=== PATIENT | female | born 1940 | race Caucasian/White ===

== ENCOUNTER 2017-10-20 23:07 | Inpatient (IN) | payer MEDICARE ==
[2017-10-20] MEDS ORDERED: NS 0.9% 1000 ML* 1,000 ML IV ONE (23:29)
[2017-10-20] MEDS ORDERED: Clotrimazole 1% CREAM* 30 GM TOPICAL ONE (23:32)
[2017-10-21 01:11] LABS: ABS Basophils 0 10^3/ul (0-0.2); ABS Eosinophils 0.2 10^3/ul (0-0.6); ABS Monocytes 0.8 10^3/ul (0-0.8); ABS Neutrophils 15.5 10^3/ul (1.5-7.7); ABS Nucleated RBC 0 10^3/ul; Eosinophil % 1.1 % (0-6); Hematocrit 43 % (35-47); Lymphocyte % 5.9 % (25-47); Mean Corpuscular HGB Conc 32 g/dl (31-36); Mean Corpuscular Hemoglobin 29 pg (27-31); Mean Corpuscular Volume 89 fL (80-97); Mean Platelet Volume 6.6 um3 (7.4-10.4); Nucleated Red Blood Cells % 0; Platelet Count 410 10^3/ul (150-450); Red Blood Count 4.88 10^6/ul (4.0-5.4); Red Cell Distribution Width 15 % (10.5-15); White Blood Count 17.6 10^3/ul (3.5-10.8)
[2017-10-21 01:19] LABS: INR 0.97 (0.77-1.02)
[2017-10-21 01:39] LABS: EGFR Non-African American 67.6 (>60)
[2017-10-21] MEDS ORDERED: Levofloxacin 750 MG IVPREMIX(* 750 MG/150 ML BAG IVPB ONE (01:47)
[2017-10-21] MEDS ORDERED: Insulin REGULAR(*) 1 UNITS UNIT IV PUSH ONE (01:53)
[2017-10-21 02:03] LABS: Urine Appearance Turbid; Urine Blood 3+ (Negative); Urine Color Amber; Urine Ketones Trace (Negative); Urine Protein 2+(100 mg/dL) (Negative); Urine Red Blood Cell 3+(>10/hpf) (Absent); Urine Specific Gravity 1.013 (1.010-1.030); Urine Urobilinogen Negative (Negative); Urine White Blood Cell 3+(>20/hpf) (Absent)
--- NOTE | 2017-10-21 02:17 | HP ---
H&P (Free Text) History and Physical: PCP: Alaina Suh NP Date/Time: 10/21/2017 0200 CC: family unable to care for HPI: Mrs Cho is a 76YO female very poor historian who was brought via EMS at the request of family reporting to the ED they were unable to care for her any more. Per ED staff, EMS reported that they found living conditions in Mrs Cho 's home to be deplorable. The recliner she was sitting in was soaked with urine and when they removed her from it, bugs scattered from underneath. The home was filthy and malodorous. Mrs Cho reports a fall ~5 days ago for which she was never evaluated. She denies F/C, sweats, chest pain, SOB, N/V/D, rash, pain, changes in bowel/bladder, or other issues. In the ED, she was found to have dried fecal caking in intertringinal areas and was subsequently bathed. PMedHx DM2 HTN HLD depression/anxiety Ambulatory Orders Atenolol 100 mg PO DAILY 12/24/12 Diltiazem CD CAP* [Cardizem CD CAP*] 180 mg PO DAILY 12/24/12 FLUoxetine CAP* [PROzac CAP*] 20 mg PO DAILY 12/24/12 Lisinopril & Hydrochlorothiazi [Lisinopril/Hydrochlorothi] 2 tab PO DAILY ALPRAZolam TAB* [Xanax TAB*] 0.25 mg PO BID PRN 01/24/13 Aspirin EC TAB* [Ecotrin EC Low Dose 81 MG*] 81 mg PO DAILY 01/24/13 Insulin Aspart [Novolog] 100 unit SC 01/24/13 Insulin REGULAR(*) unit SUBCUT AC 01/24/13 Losartan Potassium 100 mg PO DAILY 01/24/13 Simvastatin (NF) [Zocor (NF)] 40 mg PO DAILY 10/21/17 metFORMIN* [Glucophage 1000 MG TAB *] 1,000 mg PO BID 10/21/17 Allergies Penicillins Allergy (Verified 10/21/17 00:22) Anaphylatic Shock Sulfa (Sulfonamide Antibiotics) Allergy (Verified 10/21/17 00:22) Rash And Itching PSurgHx denies SocHx: denies HX tobacco, alcohol, & recreational drugs; lives alone; full code status FamHx: reviewed & non-contributory ROS: as above, otherwise reviewed and all were negative vitals: Vital Signs Temp 36.6 C 10/21/17 03:10 Pulse 89 10/21/17 03:10 Resp 16 10/21/17 03:10 BP 128/48 10/21/17 03:10 Pulse Ox 98 10/21/17 03:10 Intake & Output 10/20/17 10/20/17 10/21/17 11:59 23:59 11:59 Intake Total 110 Balance 110 Weight 90.718 kg 77.111 kg Intake: IVPB 110 Constitutional: NAD, normally developed, obese elderly white female HEENM: atraumatic; sclera/conjunctiva: anicteric/clear; hearing: clinically mildly decreased; oropharynx: clear, tacky Neck: soft tissue: no nuchal rigidity; thyroid: normal Pulmonary: clear to auscultation bilaterally, good aeration, no accessory muscle use CV: RR/RR, normal S1S2, no carotid bruit, no jugular venous distention, 2+ B DP/ PT, no edema Abdominal: soft, non-distended, non-tender, no rebound/guarding/rigidity, normoactive bowel sounds, no hepatosplenomegaly or masses, no costovertebral angle tenderness Musculoskeletal: general: grossly intact, non-tender Integumental: R dorso-lateral foot with ~8cm unstageable malodorous ulcer Psychiatric orientation: AA&O to PP, not time, questionably to situation affect: fatigued mood: cooperative eye contact: poor content: unreliable responses: mildly slowed insight: poor Testing: Lab Results 10/21/17 10/21/17 10/21/17 Range/Units 00:53 01:02 01:02 WBC 17.6 H (3.5-10.8) 10^3/ul RBC 4.88 (4.0-5.4) 10^6/ul Hgb 14.0 (12.0-16.0) g/dl Hct 43 (35-47) % MCV 89 (80-97) fL MCH 29 (27-31) pg MCHC 32 (31-36) g/dl RDW 15 (10.5-15) % Plt Count 410 (150-450) 10^3/ul MPV 6.6 L (7.4-10.4) um3 Neut % (Auto) 88.4 H (38-83) % Lymph % (Auto) 5.9 L (25-47) % [place] % (Auto) 4.4 (0-7) % Eos % (Auto) 1.1 (0-6) % Baso % (Auto) 0.2 (0-2) % Absolute Neuts (auto) 15.5 H (1.5-7.7) 10^3/ul Absolute Lymphs (auto) 1.0 (1.0-4.8) 10^3/ul Absolute Monos (auto) 0.8 (0-0.8) 10^3/ul Absolute Eos (auto) 0.2 (0-0.6) 10^3/ul Absolute Basos (auto) 0 (0-0.2) 10^3/ul Absolute Nucleated RBC 0 10^3/ul Nucleated RBC % 0 INR (Anticoag Therapy) 0.97 (0.77-1.02) APTT 24.7 L (26.0-36.3) seconds Sodium (139-145) mmol/L Potassium (3.5-5.0) mmol/L Chloride (101-111) mmol/L Carbon Dioxide (22-32) mmol/L Anion Gap (2-11) mmol/L BUN (6-24) mg/dL Creatinine (0.51-0.95) mg/dL Est GFR ( Amer) (>60) Est GFR (Non-Af Amer) (>60) BUN/Creatinine Ratio (8-20) Glucose (70-100) mg/dL POC Glucose (mg/dL) 255 H (70-100) mg/dL Lactic Acid (0.5-2.0) mmol/L Calcium (8.6-10.3) mg/dL Magnesium (1.9-2.7) mg/dL Total Bilirubin (0.2-1.0) mg/dL AST (13-39) U/L ALT (7-52) U/L Alkaline Phosphatase (34-104) U/L Total Creatine Kinase (10-223) U/L Troponin I (<0.04) ng/mL C-Reactive Protein (< 5.00) mg/L B-Natriuretic Peptide ( - 100) pg/mL Total Protein (6.4-8.9) g/dL Albumin (3.2-5.2) g/dL Globulin (2-4) g/dL Albumin/Globulin Ratio (1-3) Prealbumin (18-38) mg/dL Lipase (11.0-82.0) U/L TSH (0.34-5.60) mcIU/mL Urine Color Urine Appearance Urine pH (5-9) Ur Specific Norton (1.010-1.030) Urine Protein (Negative) Urine Ketones (Negative) Urine Blood (Negative) Urine Nitrate (Negative) Urine Bilirubin (Negative) Urine Urobilinogen (Negative) Ur Leukocyte Esterase (Negative) Urine WBC (Auto) (Absent) Urine RBC (Auto) (Absent) Urine Bacteria (Absent) Urine Glucose (Negative) 10/21/17 10/21/17 10/21/17 Range/Units 01:02 01:02 01:02 WBC (3.5-10.8) 10^3/ul RBC (4.0-5.4) 10^6/ul Hgb (12.0-16.0) g/dl Hct (35-47) % MCV (80-97) fL MCH (27-31) pg MCHC (31-36) g/dl RDW (10.5-15) % Plt Count (150-450) 10^3/ul MPV (7.4-10.4) um3 Neut % (Auto) (38-83) % Lymph % (Auto) (25-47) % [place] % (Auto) (0-7) % Eos % (Auto) (0-6) % Baso % (Auto) (0-2) % Absolute Neuts (auto) (1.5-7.7) 10^3/ul Absolute Lymphs (auto) (1.0-4.8) 10^3/ul Absolute Monos (auto) (0-0.8) 10^3/ul Absolute Eos (auto) (0-0.6) 10^3/ul Absolute Basos (auto) (0-0.2) 10^3/ul Absolute Nucleated RBC 10^3/ul Nucleated RBC % INR (Anticoag Therapy) (0.77-1.02) APTT (26.0-36.3) seconds Sodium 132 L (139-145) mmol/L Potassium 4.6 (3.5-5.0) mmol/L Chloride 97 L (101-111) mmol/L Carbon Dioxide 24 (22-32) mmol/L Anion Gap 11 (2-11) mmol/L BUN 35 H (6-24) mg/dL Creatinine 0.82 (0.51-0.95) mg/dL Est GFR ( Amer) 86.9 (>60) Est GFR (Non-Af Amer) 67.6 (>60) BUN/Creatinine Ratio 42.7 H (8-20) Glucose 275 H (70-100) mg/dL POC Glucose (mg/dL) (70-100) mg/dL Lactic Acid 2.0 (0.5-2.0) mmol/L Calcium 8.5 L (8.6-10.3) mg/dL Magnesium 1.9 (1.9-2.7) mg/dL Total Bilirubin 0.80 (0.2-1.0) mg/dL AST 23 (13-39) U/L ALT 28 (7-52) U/L Alkaline Phosphatase 50 (34-104) U/L Total Creatine Kinase 55 (10-223) U/L Troponin I 0.06 H* (<0.04) ng/mL C-Reactive Protein 193.00 H (< 5.00) mg/L B-Natriuretic Peptide 283 H ( - 100) pg/mL Total Protein 6.7 (6.4-8.9) g/dL Albumin 2.6 L (3.2-5.2) g/dL Globulin 4.1 H (2-4) g/dL Albumin/Globulin Ratio 0.6 L (1-3) Prealbumin 6 L (18-38) mg/dL Lipase 24 (11.0-82.0) U/L TSH 2.10 (0.34-5.60) mcIU/mL Urine Color Urine Appearance Urine pH (5-9) Ur Specific Norton (1.010-1.030) Urine Protein (Negative) Urine Ketones (Negative) Urine Blood (Negative) Urine Nitrate (Negative) Urine Bilirubin (Negative) Urine Urobilinogen (Negative) Ur Leukocyte Esterase (Negative) Urine WBC (Auto) (Absent) Urine RBC (Auto) (Absent) Urine Bacteria (Absent) Urine Glucose (Negative) 10/21/17 Range/Units 01:39 WBC (3.5-10.8) 10^3/ul RBC (4.0-5.4) 10^6/ul Hgb (12.0-16.0) g/dl Hct (35-47) % MCV (80-97) fL MCH (27-31) pg MCHC (31-36) g/dl RDW (10.5-15) % Plt Count (150-450) 10^3/ul MPV (7.4-10.4) um3 Neut % (Auto) (38-83) % Lymph % (Auto) (25-47) % [place] % (Auto) (0-7) % Eos % (Auto) (0-6) % Baso % (Auto) (0-2) % Absolute Neuts (auto) (1.5-7.7) 10^3/ul Absolute Lymphs (auto) (1.0-4.8) 10^3/ul Absolute Monos (auto) (0-0.8) 10^3/ul Absolute Eos (auto) (0-0.6) 10^3/ul Absolute Basos (auto) (0-0.2) 10^3/ul Absolute Nucleated RBC 10^3/ul Nucleated RBC % INR (Anticoag Therapy) (0.77-1.02) APTT (26.0-36.3) seconds Sodium (139-145) mmol/L Potassium (3.5-5.0) mmol/L Chloride (101-111) mmol/L Carbon Dioxide (22-32) mmol/L Anion Gap (2-11) mmol/L BUN (6-24) mg/dL Creatinine (0.51-0.95) mg/dL Est GFR ( Amer) (>60) Est GFR (Non-Af Amer) (>60) BUN/Creatinine Ratio (8-20) Glucose (70-100) mg/dL POC Glucose (mg/dL) (70-100) mg/dL Lactic Acid (0.5-2.0) mmol/L Calcium (8.6-10.3) mg/dL Magnesium (1.9-2.7) mg/dL Total Bilirubin (0.2-1.0) mg/dL AST (13-39) U/L ALT (7-52) U/L Alkaline Phosphatase (34-104) U/L Total Creatine Kinase (10-223) U/L Troponin I (<0.04) ng/mL C-Reactive Protein (< 5.00) mg/L B-Natriuretic Peptide ( - 100) pg/mL Total Protein (6.4-8.9) g/dL Albumin (3.2-5.2) g/dL Globulin (2-4) g/dL Albumin/Globulin Ratio (1-3) Prealbumin (18-38) mg/dL Lipase (11.0-82.0) U/L TSH (0.34-5.60) mcIU/mL Urine Color Kassie Urine Appearance Turbid Urine pH 5.0 (5-9) Ur Specific Norton 1.013 (1.010-1.030) Urine Protein 2+(100 mg/dl) A (Negative) Urine Ketones Trace A (Negative) Urine Blood 3+ A (Negative) Urine Nitrate Negative (Negative) Urine Bilirubin Negative (Negative) Urine Urobilinogen Negative (Negative) Ur Leukocyte Esterase 3+ A (Negative) Urine WBC (Auto) 3+(>20/hpf) A (Absent) Urine RBC (Auto) 3+(>10/hpf) A (Absent) Urine Bacteria Absent (Absent) Urine Glucose 3+(>=500 mg/dl) A (Negative) ECG, personally reviewed: NSR rate 77, T-wave inversions V3-6/I/II/AVF CXR, personally reviewed: bibasilar atelectasis vs infiltrate CT brain WO, personally reviewed: IMPRESSION: No intracranial mass or bleed. Impression: 76F found in unsafe living conditions with an abnormal ECG, elevated troponin, & findings concerning for bibasilar pneumonia DIAGNOSIS & PLAN Primary bibasilar pneumonia : IVFs : IV levofloxacin : blood & sputum CXs : supplemental oxygen : check S pneumo & Legionella urine antigens : supportive care 8cm unstageable R foot ulcer : wound consult severe protein-calorie malnutrition : nutrition consult Secondary DM2 : update A1c : ACHS glucometry : insulin carb ratio diet : basal/bolus/correctional insulin : hold metformin HTN : continue losartan, atenolol, & diltiazem : hold HCTZ & lisinopril HLD : continue simvastatin depression/anxiety : continue fluoxetine : hold alprazolam Admission Rational: inpatient for IVFs & IV ABX for bibasilar pneumonia complicated by abnormal ECG and elevated troponin DVTp: SCDs & heparin SQ Code Status: full HCP: daughter, Rosario Hermosillo
--- NOTE | 2017-10-21 02:19 | ED ---
Emelyn Riojas Jade, scribed for Leonard Martinez MD on 10/21/17 at 0037 . Complex/Multi-Sys Presentation - HPI Summary HPI Summary: Pt is a 76 y/o female BIBA c/o weakness. As per family, they brought her to the ED because they could no longer take care of her. Pt lives alone, and fell 10 days ago but refused to go to a hospital. She is afraid to let anybody help her stand up, and is not eating or drinking. Pt is usually bed-bound, and does not walk. She denies any N/V or pain. PMHx of Type 2 diabetes, CVA with left-sided weakness, and hyperlipidemia. - History Of Current Complaint Chief Complaint: EDGeneral Time Seen by Provider: 10/20/17 23:13 Hx Obtained From: Patient, Medical Records Onset/Duration: Gradual Onset Severity Currently: None Location: Negative Associated Signs And Symptoms: Positive: Weakness. Negative: Nausea, Vomiting - Allergies/Home Medications Allergies/Adverse Reactions: Allergies Allergy/AdvReac Type Severity Reaction Status Date / Time Penicillins Allergy Anaphylatic Verified 10/21/17 00:22 Shock Sulfa (Sulfonamide Allergy Rash And Verified 10/21/17 00:22 Antibiotics) Itching PMH/Surg Hx/FS Hx/Imm Hx Endocrine/Hematology History: Reports: Hx Diabetes - type 2 Denies: Hx Anemia Cardiovascular History: Reports: Hx Hypertension Denies: Hx Pacemaker/ICD GI History: Denies: Hx Jaundice Sensory History: Reports: Hx Cataracts - Had removed, Hx Contacts or Glasses - reading Denies: Hx Hearing Aid Opthamlomology History: Reports: Hx Cataracts - Had removed, Hx Contacts or Glasses - reading Neurological History: Denies: Hx Headaches Psychiatric History: Denies: Hx Panic Disorder - Surgical History Surgery Procedure, Year, and Place: BILAT CATARCTS - Immunization History Date of Tetanus Vaccine: unk Date of Influenza Vaccine: unk Infectious Disease History: Unable to Obtain/Confirm Infectious Disease History: Denies: Traveled Outside the [place] in Last 30 Days - Family History Known Family History: Positive: Other - Lung carcinoma - Social History Lives: Alone Alcohol Use: None Substance Use Type: Reports: None Smoking Status (MU): Former Smoker Review of Systems Positive: Other - Generalized weakness Negative: Vomiting, Nausea Negative: Myalgia All Other Systems Reviewed And Are Negative: Yes Physical Exam - Summary Physical Exam Summary: VITAL SIGNS: Reviewed. GENERAL: ~Patient is an unkempt female who is lying comfortable in the stretcher. Patient is not in any acute respiratory distress. Pt smells of urine. HEAD AND FACE: No signs of trauma. No ecchymosis, hematomas or skull depressions. No sinus tenderness. EYES: PERRLA, EOMI x 2, No injected conjunctiva, no nystagmus. EARS: Hearing grossly intact. Ear canals and tympanic membranes are within normal limits. MOUTH: Oropharynx within normal limits. NECK: Supple, trachea is midline, no adenopathy, no JVD, no carotid bruit, no c- spine tenderness, neck with full ROM. CHEST: Symmetric, no tenderness at palpation LUNGS: Clear to auscultation bilaterally. No wheezing or crackles. CVS: Regular rate and rhythm, S1 and S2 present, no murmurs or gallops appreciated. ABDOMEN: Soft, non-tender. No signs of distention. No rebound no guarding, and no masses palpated. Bowel sounds are normal. EXTREMITIES: FROM in all major joints, no cyanosis or clubbing. Mild swelling of right lower extremity. Stage 3 pressure ulcers over right lateral malleolus 3.5 cm in diameter. Bilateral LE weakness, L > R. NEURO: Alert and oriented x 3. No acute neurological deficits. Speech is normal and follows commands. SKIN: Dry and warm. Redness on skin folds over groin area and back, indicative of fungal infection. Triage Information Reviewed: Yes Vital Signs On Initial Exam: Initial Vitals Temp Pulse Resp BP Pulse Ox 97.8 F 88 18 142/102 97 10/20/17 23:32 10/20/17 23:32 10/20/17 23:32 10/20/17 23:32 10/20/17 23:32 Vital Signs Reviewed: Yes Diagnostics - Vital Signs Vital Signs Temp Pulse Resp BP Pulse Ox 10/20/17 23:32 97.8 F 88 18 142/102 97 - Laboratory Result Diagrams: 10/21/17 01:02 10/21/17 01:02 Lab Statement: Any lab studies that have been ordered have been reviewed, and results considered in the medical decision making process. - Radiology CXR Xray Interpretation: Positive (See Comments) - Right lower lobe infiltrate with small right pleural effusion. ED physician reviewed radiology report. Pending official report. Radiology Interpretation Completed By: Radiologist Ankle Right XR Xray Interpretation: Positive (See Comments) - Limited study. Ankle osteopenia/ arthritis, no fractures. ED physician reviewed radiology report. Pending official report. Radiology Interpretation Completed By: Radiologist - CT Brain CT CT Interpretation: No Acute Changes - No intracranial mass or bleed. Chronic appearing involutional changes of aging. ED physician reviewed this report. Official report pending. CT Interpretation Completed By: Radiologist - EKG 01:32 Cardiac Rate: NL - 77 bpm EKG Rhythm: Sinus Rhythm EKG Interpretation: T-wave inversion in anterolateral and high lateral leads Complex Multi-Symp Course/Dx Course Of Treatment: Pt is a 76 y/o female BIBA c/o weakness. She denies any N/ V or pain. Her family brought her in because they could no longer take care of her. Pt lives alone, and fell 10 days ago but refused to go to a hospital. She is afraid to let anybody help her stand up, and is not eating or drinking. Pt is usually bed-bound, and does not walk. PMHx of Type 2 diabetes, CVA with left- sided weakness, and hyperlipidemia. A CXR reveals right lower lobe infiltrate with small right pleural effusion. A head CT reveals no intracranial mass or bleed, and chronic appearing involutional changes of aging. A right ankle XR reveals a limited study, ankle osteopenia/arthritis, and no fractures. An EKG reveals normal rate at 77 bpm, sinus rhythm, and T-wave inversion in anterolateral and high lateral leads. In the ED course, pt was given Clotrimazole, insulin, Levaquin, and fluids. Patient will be admitted to Dr. Zavaleta with final Dx of PNA, UTI, and pressure ulcers. Pt is agreeable with this plan. Allergies noted. - Diagnoses Provider Diagnoses: PNA (pneumonia), UTI (urinary tract infection), Pressure ulcer - Physician Notifications Discussed Care Of Patient With: Stanley Zavaleta - Discussed case to be admitted Time Discussed With Above Provider: 01:56 Instructed by Provider To: Other - Accepts patient for admission Discharge - Sign-Out/Discharge Documenting (check all that apply): Discharge/Admit/Transfer - admit - Discharge Plan Condition: Stable Disposition: ADMITTED TO [facility] Referrals: Beronica Suh, KEYING MACHINE OPERATOR [Primary Care Provider] - The documentation as recorded by the Emelyn colon Jade accurately reflects the service I personally performed and the decisions made by me, Leonard Martinez MD.
[2017-10-21] MEDS ORDERED: Albuterol 2.5 MG/3 ML NEB.SOL* (0.083%) INH PRN (02:24)
[2017-10-21] MEDS ORDERED: Acetaminophen TAB* 325 MG PO PRN (02:24)
[2017-10-21] MEDS ORDERED: Melatonin 3 MG TAB PO PRN (02:26)
[2017-10-21] MEDS ORDERED: Ondansetron ODT TAB* 4 MG PO PRN (02:27)
[2017-10-21] MEDS: NS 0.9% 1000 ML* 1,000 ML IV SCH ×3 (04:13→21:49)
[2017-10-21] MEDS: Omeprazole CAP* 20 MG PO SCH (05:43)
[2017-10-21 05:52] LABS: ABS Basophils 0 10^3/ul (0-0.2); ABS Eosinophils 0.1 10^3/ul (0-0.6); ABS Lymphocytes 0.9 10^3/ul (1.0-4.8); ABS Monocytes 0.8 10^3/ul (0-0.8); ABS Neutrophils 17.4 10^3/ul (1.5-7.7); ABS Nucleated RBC 0 10^3/ul; Eosinophil % 0.4 % (0-6); Hematocrit 41 % (35-47); Hemoglobin 13.2 g/dl (12.0-16.0); Lymphocyte % 4.5 % (25-47); Mean Corpuscular HGB Conc 32 g/dl (31-36); Mean Corpuscular Hemoglobin 28 pg (27-31); Mean Corpuscular Volume 88 fL (80-97); Mean Platelet Volume 6.5 um3 (7.4-10.4); Nucleated Red Blood Cells % 0; Platelet Count 343 10^3/ul (150-450); Red Blood Count 4.68 10^6/ul (4.0-5.4); Red Cell Distribution Width 15 % (10.5-15); White Blood Count 19.1 10^3/ul (3.5-10.8)
[2017-10-21 06:11] LABS: EGFR Non-African American 93.3 (>60)
--- NOTE | 2017-10-21 08:42 | RAD ---
INDICATION: Weakness COMPARISON: Chest x-ray dated December 24, 2012 TECHNIQUE: Single AP portable view of the chest was obtained. FINDINGS: Image quality is compromised due to the relative inferiority of a portable chest x-ray. The heart and mediastinum exhibit normal size and contour. There is stable mild calcification overlying the arch of the aorta. There is linear density at the left lung base partially obscuring the left hemidiaphragm that was not seen on the previous chest x-ray. More superiorly the lungs are adequately aerated. Degenerative changes of the bilateral shoulders include joint space narrowing and sclerotic change of the articulating services. IMPRESSION: Possible atelectasis or other consolidation of the left lung base not seen on the previous chest x-ray.
--- NOTE | 2017-10-21 08:46 | RAD ---
INDICATION: Soft tissue ulceration overlying the lateral malleolus COMPARISON: None. TECHNIQUE: 2 views of the right ankle were obtained. FINDINGS: Degenerative changes of the right ankle include joint space narrowing and mild sclerotic change of the articulating services. There is a mild degree of marginal osteophyte formation. There is no definite cortical destruction characteristic of osteomyelitis. There is a mild degree of soft tissue swelling overlying the fibular malleolus.. IMPRESSION: DEGENERATIVE CHANGES DESCRIBED ABOVE WITHOUT DEFINITE RADIOGRAPHIC SIGNS OF OSTEOMYELITIS. If the patient's symptoms persist, follow-up imaging is recommended.
--- NOTE | 2017-10-21 08:49 | RAD ---
INDICATION: Weakness and "sores all over body" COMPARISON: CT of the brain December 24, 2012 TECHNIQUE: Contiguous axial sections of the brain were obtained from the skull base to the vertex without contrast. FINDINGS: The ventricles, cisterns and sulci exhibit involutional changes similar in appearance to the previous CT of the brain. There is mild to moderate periventricular and subcortical white matter hypoattenuation characteristic of chronic microvascular disease and slightly progressed when compared to the previous CT of the brain. Otherwise the mercado-white matter differentiation is adequately maintained and there is no sulcal effacement. No significant focal abnormality or mass effect is present. There is no evidence for intracranial hemorrhage. No significant focal osseous abnormality is present. The visualized portion of the paranasal sinuses appear clear. The mastoid air cells are well aerated bilaterally. IMPRESSION: Chronic findings as described above, slightly progressed when compared to the December 24, 2012 CT of the brain without acute intracranial abnormalities.
[2017-10-21] MEDS ORDERED: Diltiazem CD CAP* 180 MG PO SCH (09:00)
[2017-10-21] MEDS ORDERED: Atenolol TAB* 50 MG PO SCH ×2 (09:00→13:19)
[2017-10-21] MEDS ORDERED: Losartan TAB* 25 MG PO SCH (09:00)
[2017-10-21] MEDS: Atorvastatin* 20 MG TAB PO SCH (09:24)
[2017-10-21] MEDS: FLUoxetine CAP* 20 MG PO SCH (09:24)
[2017-10-21] MEDS: Docusate CAP* 100 MG PO SCH ×2 (09:24→20:43)
[2017-10-21] MEDS: Insulin LISPRO* 1 UNITS UNIT SUBCUT SCH ×7 (09:24→20:44)
[2017-10-21] MEDS: Aspirin EC TAB* 81 MG TAB.EC PO SCH (09:24)
[2017-10-21] MEDS ORDERED: NS 0.9% 500 ML* 500 ML IV ONE (12:58)
[2017-10-21] MEDS ORDERED: Azithromycin IV(*) 500 MG in D5W 250 ML BAG* 250 ML IVPB SCH (13:30)
[2017-10-21] MEDS: Cefepime 1 GM in Dextrose(*) 1 GM/50 ML BAG IV SCH (14:37)
[2017-10-21] MEDS: Azithromycin IV(*) 500 MG in NS 0.9% 250 ML* 250 ML IVPB SCH (15:25)
[2017-10-21] MEDS ORDERED: NS 0.9% 1000 ML* 1,000 ML IV ONE ×2 (15:38→19:35)
--- NOTE | 2017-10-21 17:41 | PN ---
Subjective Date of Service: 10/21/17 Interval History: c/o of feeling tired. denies chest pain or shortness of breath. denies abd pain n/v/d. Family History: Unchanged from Admission Social History: Unchanged from Admission Past Medical History: Unchanged from Admission Objective Active Medications: Acetaminophen (Tylenol Tab*) 650 mg PO Q6H PRN PRN Reason: FEVER/PAIN Albuterol (Ventolin 2.5 Mg/3 Ml Neb.Mary*) 2.5 mg INH Q2H PRN PRN Reason: SOB/WHEEZING Aspirin (Aspirin Ec Tab*) [address] [facility] Last Admin: 10/21/17 09:24 Dose: 81 mg Atenolol (Tenormin Tab*) [address] [facility] Atorvastatin Calcium (Lipitor*) [address] [facility] Last Admin: 10/21/17 09:24 Dose: 20 mg Docusate Sodium (Colace Cap*) [address] [facility] Last Admin: 10/21/17 09:24 Dose: 100 mg Fluoxetine HCl (Prozac Cap*) [address] [facility] Last Admin: 10/21/17 09:24 Dose: 20 mg Heparin Sodium (Porcine) (Heparin Vial(*)) 5,[address] [facility] Sodium Chloride (Ns 0.9% 1000 Ml*) 1,000 mls @ 100 mls/hr IV PER RATE [facility] Last Admin: 10/21/17 04:13 Dose: 100 mls/hr Cefepime HCl (Maxipime 1 Gm In Dextrose Duplex (*)) 1 gm in 50 mls @ 100 mls/ hr IV Q12H [facility] Last Admin: 10/21/17 14:37 Dose: 100 mls/hr Azithromycin 500 mg/ Sodium (Chloride) 250 mls @ 250 mls/hr IVPB Q24H [facility] Last Admin: 10/21/17 15:25 Dose: 250 mls/hr Insulin Glargine (Lantus(*)) 22 units 0.24 units/kg (22 units) SUBCUT 2100 [facility] Stop: 10/22/17 20:00 Insulin Human Lispro (Humalog*) 0 units SUBCUT AC [facility] PRN Reason: Protocol Last Admin: 10/21/17 13:26 Dose: Not Given Insulin Human Lispro (Humalog*) [address] [facility] PRN Reason: Protocol Last Admin: 10/21/17 13:34 Dose: 15 units Melatonin (Melatonin) 3 mg PO BEDTIME PRN; Protocol PRN Reason: Sleep Omeprazole (Prilosec Cap*) 20 mg PO DAILY@0600 [facility] Last Admin: 10/21/17 05:43 Dose: 20 mg Ondansetron HCl (Zofran Odt Tab*) 4 mg PO Q6H PRN PRN Reason: n/v Vital Signs - 8 hr 10/21/17 10/21/17 10/21/17 11:54 15:08 15:49 Temperature 97.1 F 97.4 F Pulse Rate 56 53 Respiratory 18 20 Rate Blood Pressure 82/36 79/31 73/30 (mmHg) O2 Sat by Pulse 100 96 Oximetry 10/21/17 17:30 Temperature Pulse Rate Respiratory Rate Blood Pressure 76/30 (mmHg) O2 Sat by Pulse Oximetry Oxygen Devices in Use Now: None Appearance: appears, weak and tired, no acute distress, pale Eyes: No Scleral Icterus Ears/Nose/Mouth/Throat: Clear Oropharnyx, Mucous Membranes Moist Neck: NL Appearance and Movements; NL JVP, Trachea Midline Respiratory: Symmetrical Chest Expansion and Respiratory Effort, Clear to Auscultation Cardiovascular: NL Sounds; No Murmurs; No JVD, No Edema Abdominal: NL Sounds; No Tenderness; No Distention Skin: - - large tunneling coccyx ulcer, left hip with medium scabbed area, right lateral foot with large open wound, right 5 th toe with redness and abrasion. right heal with redness and wound. multiple abrasion and sores noted to entire body Neurological: Alert and Oriented x 3 Nutrition: Taking PO's Result Diagrams: 10/22/17 06:24 10/22/17 06:24 Microbiology and Other Data: Microbiology 10/21/17 14:30 Skin and Soft Tissue MRSA/MSSA (PCR - Final Ankle Right Mrsa Negative S.aureus Positive Gram Stain - Final 10/21/17 14:30 Skin and Soft Tissue MRSA/MSSA (PCR - Final Buttock Mrsa Negative S.aureus Negative Gram Stain - Final Assess/Plan/Problems-Billing Assessment: Ms. Cho is a 76 y.o female with a past medical hx significant for HTN, - Patient Problems (1) Pneumonia Current Visit: Yes Status: Acute Code(s): J18.9 - PNEUMONIA, UNSPECIFIED ORGANISM SNOMED Code(s): 696878976 Comment: Will Change antibiotics to azithromycin and cefepime - afebrile (2) Pressure ulcer Current Visit: Yes Status: Acute Code(s): L89.90 - PRESSURE ULCER OF UNSPECIFIED SITE, UNSPECIFIED STAGE SNOMED Code(s): 329289308 Comment: consulted surgery coccyx ulcer - normal saline wet to dry dressing dressing to right ankle air mattress to bed reposition Q2 hours right ankle ulcer positive for MSSA- will continue cefepime (3) Malnutrition Current Visit: Yes Status: Acute Code(s): E46 - UNSPECIFIED PROTEIN-CALORIE MALNUTRITION SNOMED Code(s): 21003199 Comment: - poor po intake for 10 days prior to arrival to the hospital - multiple open wounds noted to body, edema to lower legs - albumin low 2.6 - prealbumin 6 (4) Hypotension Current Visit: Yes Status: Acute Comment: suspect this is related to her medications- given IV fluids bolus x2 -stopped losartan and cardizem - after medications clarified - repeat lactic acid elevated - patient given IV normal saline bolus (5) Diabetes mellitus type 2 Current Visit: No Status: Active Priority: Low Code(s): E11.9 - TYPE 2 DIABETES MELLITUS WITHOUT COMPLICATIONS SNOMED Code(s): 95928434 Comment: finger sticks AC and HS with SS lispro coverage continue Lantus (6) Essential hypertension Current Visit: No Status: Active Priority: Low Code(s): I10 - ESSENTIAL ( PRIMARY) HYPERTENSION SNOMED Code(s): 10558593 Comment: medications clarified - take atenolol and lisinopril/ HCTZ at home - d/c'd lorsartan and cardizem- patient was hypotensive throughtout the day after AM medicaitons (7) Hypercholesterolemia Current Visit: No Status: Active Priority: Low Code(s): E78.0 - PURE HYPERCHOLESTEROLEMIA * DO NOT USE * SNOMED Code(s): 27818327 Comment: continue lipitor (8) DVT prophylaxis Current Visit: Yes Status: Acute Code(s): MYN0126 - SNOMED Code(s): 414109521 Comment: heparin subQ (9) Full code status Current Visit: Yes Status: Acute Code(s): Z78.9 - OTHER SPECIFIED HEALTH STATUS SNOMED Code(s): 055158963 Status and Disposition: inpatient
[2017-10-21] MEDS ORDERED: Insulin GLARGINE(*) 1 UNITS UNIT SUBCUT SCH (21:00)
[2017-10-22] MEDS: Cefepime 1 GM in Dextrose(*) 1 GM/50 ML BAG IV SCH ×2 (01:21→15:02)
[2017-10-22] MEDS ORDERED: Levofloxacin 750 MG IVPREMIX(* 750 MG/150 ML BAG IVPB SCH (02:00)
[2017-10-22] MEDS: Heparin VIAL(*) 5000 UNITS/ML VIAL (FIVE THOUSAND) SUBCUT SCH ×3 (05:35→21:33)
[2017-10-22] MEDS: Omeprazole CAP* 20 MG PO SCH (05:35)
[2017-10-22 06:50] LABS: ABS Basophils 0 10^3/ul (0-0.2); ABS Eosinophils 0.2 10^3/ul (0-0.6); ABS Lymphocytes 1.2 10^3/ul (1.0-4.8); ABS Monocytes 0.7 10^3/ul (0-0.8); ABS Neutrophils 15.7 10^3/ul (1.5-7.7); ABS Nucleated RBC 0 10^3/ul; Eosinophil % 1.2 % (0-6); Hematocrit 34 % (35-47); Hemoglobin 11.6 g/dl (12.0-16.0); Lymphocyte % 6.8 % (25-47); Mean Corpuscular HGB Conc 34 g/dl (31-36); Mean Corpuscular Hemoglobin 30 pg (27-31); Mean Corpuscular Volume 88 fL (80-97); Mean Platelet Volume 6.5 um3 (7.4-10.4); Nucleated Red Blood Cells % 0; Platelet Count 348 10^3/ul (150-450); Red Blood Count 3.87 10^6/ul (4.0-5.4); Red Cell Distribution Width 15 % (10.5-15); White Blood Count 17.9 10^3/ul (3.5-10.8)
[2017-10-22 07:04] LABS: EGFR Non-African American 48.2 (>60)
[2017-10-22] MEDS: Docusate CAP* 100 MG PO SCH ×2 (08:32→21:33)
[2017-10-22] MEDS: Insulin LISPRO* 1 UNITS UNIT SUBCUT SCH ×4 (08:32→21:34)
[2017-10-22] MEDS: Aspirin EC TAB* 81 MG TAB.EC PO SCH (08:32)
[2017-10-22] MEDS: Atorvastatin* 20 MG TAB PO SCH (08:32)
[2017-10-22] MEDS: FLUoxetine CAP* 20 MG PO SCH (08:32)
[2017-10-22] MEDS: Atenolol TAB* 50 MG PO SCH (08:33)
[2017-10-22] MEDS ORDERED: Thiamine IV 100 MG, Folic Acid IV* 1 MG, Multiple Vitamin IV ADULT* 10 ML in NS 0.9% 10... IV ONE (10:46)
[2017-10-22] MEDS ORDERED: Insulin GLARGINE(*) 1 UNITS UNIT SUBCUT SCH (10:49)
[2017-10-22] MEDS ORDERED: Magnesium Sulfate 2 GM IV* 2 GM/50 ML BAG IVPB ONE (11:21)
[2017-10-22] MEDS: Nystatin TOP POWDER* 15 GM BTL TOPICAL SCH ×2 (11:24→21:00)
[2017-10-22] MEDS: Collagenase 250 MG/GM OINT* 30 GM TOPICAL SCH (11:24)
--- NOTE | 2017-10-22 11:26 | PN ---
Subjective Date of Service: 10/22/17 Interval History: examined at the bedside, continues to bradycardic on the monitor, asymptomatic at this time, c/o feeling "HOT", reports that she thought that her wounds were healing. confused to month and year. Denies chest pain or shortness of breath. denies abd pain , n/v/d, denies pain to coccyx. Family History: Unchanged from Admission Social History: Unchanged from Admission Past Medical History: Unchanged from Admission Objective Active Medications: Acetaminophen (Tylenol Tab*) 650 mg PO Q6H PRN PRN Reason: FEVER/PAIN Last Admin: 10/22/17 05:35 Dose: 650 mg Albuterol (Ventolin 2.5 Mg/3 Ml Neb.Mary*) 2.5 mg INH Q2H PRN PRN Reason: SOB/WHEEZING Aspirin (Aspirin Ec Tab*) 81 mg PO DAILY [facility] Last Admin: 10/22/17 08:32 Dose: 81 mg Atenolol (Tenormin Tab*) 50 mg PO DAILY [facility] Last Admin: 10/22/17 08:33 Dose: Not Given Atorvastatin Calcium (Lipitor*) 20 mg PO DAILY [facility] Last Admin: 10/22/17 08:32 Dose: 20 mg Collagenase (Santyl 250 Mg/Gm Oint*) 1 applic TOPICAL DAILY [facility] Docusate Sodium (Colace Cap*) 100 mg PO BID [facility] Last Admin: 10/22/17 08:32 Dose: 100 mg Fluoxetine HCl (Prozac Cap*) 20 mg PO DAILY [facility] Last Admin: 10/22/17 08:32 Dose: 20 mg Heparin Sodium (Porcine) (Heparin Vial(*)) 5,000 units SUBCUT Q8HR [facility] Last Admin: 10/22/17 05:35 Dose: 5,000 units Cefepime HCl (Maxipime 1 Gm In Dextrose Duplex (*)) 1 gm in 50 mls @ 100 mls/ hr IV Q12H [facility] Last Admin: 10/22/17 01:21 Dose: 100 mls/hr Azithromycin 500 mg/ Sodium (Chloride) 250 mls @ 250 mls/hr IVPB Q24H [facility] Last Admin: 10/21/17 15:25 Dose: 250 mls/hr Thiamine HCl 100 mg/ Folic Acid 1 mg/ Multivitamins 10 ml / Sodium Chloride 1, 011.2 mls @ 100 mls/hr IV ONCE ONE Stop: 10/22/17 20:52 Magnesium Sulfate (Magnesium Sulfate 2 Gm Iv*) 2 gm in 50 mls @ 50 mls/hr IVPB ONCE ONE Stop: 10/22/17 12:20 Insulin Glargine (Lantus(*)) 30 units SUBCUT 2100 [facility] Stop: 10/22/17 20:00 Insulin Human Lispro (Humalog*) 0 units SUBCUT ACHS [facility] PRN Reason: Protocol Last Admin: 10/22/17 08:32 Dose: 6 units Magnesium Oxide (Magox 400 Tab*) 400 mg PO DAILY [facility] Melatonin (Melatonin) 3 mg PO BEDTIME PRN; Protocol PRN Reason: Sleep Nystatin (Nystatin Top Powder*) 1 applic TOPICAL BID [facility] Omeprazole (Prilosec Cap*) 20 mg PO DAILY@0600 [facility] Last Admin: 10/22/17 05:35 Dose: 20 mg Ondansetron HCl (Zofran Odt Tab*) 4 mg PO Q6H PRN PRN Reason: n/v Vital Signs - 8 hr 10/22/17 10/22/17 10/22/17 06:11 07:37 08:00 Temperature 97.5 F Pulse Rate 54 Respiratory 16 18 Rate Blood Pressure 103/40 (mmHg) O2 Sat by Pulse 95 96 Oximetry Oxygen Devices in Use Now: None Appearance: appears confortable resting in bed, no acute distress. Eyes: No Scleral Icterus Ears/Nose/Mouth/Throat: Clear Oropharnyx, Mucous Membranes Moist Neck: NL Appearance and Movements; NL JVP, Trachea Midline Respiratory: Symmetrical Chest Expansion and Respiratory Effort, Clear to Auscultation, - - diminished at the bases bilat, no respirtory distress Cardiovascular: NL Sounds; No Murmurs; No JVD, - - bilat lower ext edema Abdominal: NL Sounds; No Tenderness; No Distention Extremities: No Clubbing, Cyanosis, - - bilat lower ext edema Skin: - - left hip with moderate size open area, scabbed no drainage, right lateral ankle with moderate sized open wound, with muscle tissue exposed, small amt drainage, right 5th toe the redness and abrasion. coccyx with large tunneling open area, with necrotic tissue noted, right forehead with moderate sized redened area, swelling , warm to touch , small abrasion. see images for further details of the wounds located in the "additional lab and data" section Neurological: - - oriented to place and person , confused to time Nutrition: Taking PO's Result Diagrams: 10/23/17 05:55 10/23/17 05:55 Additional Lab and Data: Left hip wound right heel coccyx right ankle right 5th toe Microbiology and Other Data: Microbiology 10/21/17 14:30 Skin and Soft Tissue MRSA/MSSA (PCR - Final Ankle Right Mrsa Negative S.aureus Positive Gram Stain - Final 10/21/17 14:30 Skin and Soft Tissue MRSA/MSSA (PCR - Final Buttock Mrsa Negative S.aureus Negative Gram Stain - Final Assess/Plan/Problems-Billing Assessment: Ms. Cho is a 76 y.o female with a past medical hx significant for HTN, DM, HLD and depression. Who presented to the ER for weakness, open wounds. Patient was found to have pneumonia. - Patient Problems (1) Pneumonia Current Visit: Yes Status: Acute Code(s): J18.9 - PNEUMONIA, UNSPECIFIED ORGANISM SNOMED Code(s): 348959337 Comment: Will continue antibiotics to azithromycin and cefepime- for pneumonia - urine culture negative for legionella and s.pneumo - remains afebrile (2) Pressure ulcer Current Visit: Yes Status: Acute Code(s): L89.90 - PRESSURE ULCER OF UNSPECIFIED SITE, UNSPECIFIED STAGE SNOMED Code(s): 902677224 Comment: surgery recommendation appreciated coccyx, right ankle, right toe, left hip ulcer- dressings per surgery air mattress to bed- will order speciality bed reposition Q2 hours right ankle ulcer positive for MSSA- will continue cefepime (3) Malnutrition Current Visit: Yes Status: Acute Code(s): E46 - UNSPECIFIED PROTEIN-CALORIE MALNUTRITION SNOMED Code(s): 11147962 Comment: - poor po intake for 10 days prior to arrival to the hospital - multiple open wounds noted to body, edema to lower legs - albumin low 2.6 - prealbumin 6 - will give banana bag daily- nutrition consulted (4) Hypotension Current Visit: Yes Status: Acute Comment: -suspect this is related to her medications- improved but remains soft 103 systolic - atenolol dose change to 50 mg and hold for SBP less than 100 and hr less than 60 -stopped losartan and cardizem - after medications clarified - repeat lactic acid- WNL (5) Diabetes mellitus type 2 Current Visit: No Status: Active Priority: Low Code(s): E11.9 - TYPE 2 DIABETES MELLITUS WITHOUT COMPLICATIONS SNOMED Code(s): 55569473 Comment: finger sticks AC and HS with SS lispro coverage - changed SS scale to BMI greater that 30 - increased Lantus to 30 units Q pm (6) Essential hypertension Current Visit: No Status: Active Priority: Low Code(s): I10 - ESSENTIAL ( PRIMARY) HYPERTENSION SNOMED Code(s): 51138462 Comment: medications clarified - take atenolol and lisinopril/ HCTZ at home - d/c'd lorsartan and cardizem- patient was hypotensive throughtout the day after AM medicaitons - decreased the dose of atenolol to 50 mg with holding for SBP < 100 and HR < 60 (7) Hypercholesterolemia Current Visit: No Status: Active Priority: Low Code(s): E78.0 - PURE HYPERCHOLESTEROLEMIA * DO NOT USE * SNOMED Code(s): 34709088 Comment: continue lipitor (8) Elevated serum creatinine Current Visit: Yes Status: Acute Code(s): R79.89 - OTHER SPECIFIED ABNORMAL FINDINGS OF BLOOD CHEMISTRY SNOMED Code(s): 001943558 Comment: - suspect this is related to hypoperfusion she experienced yesterday - will avoid nephotoxic agents - will repeat BMP in the AM (9) Hypomagnesemia Current Visit: Yes Status: Acute Code(s): E83.42 - HYPOMAGNESEMIA SNOMED Code(s): 055303699 Comment: magnesium 1.5 today - will give magnesium 2 gram and magnesium oxide 400mg po - repeat magnesium level tomorrow (10) Edema Current Visit: Yes Status: Acute Code(s): R60.9 - EDEMA, UNSPECIFIED SNOMED Code(s): 065378556 Comment: -suspect this is related to fluid volume that patient recieved yesterday for management of hypotension - also suspect that this could be related to malnutrition, as the patient had a low albumin level (11) Bradycardia Current Visit: Yes Status: Acute Code(s): R00.1 - BRADYCARDIA, UNSPECIFIED SNOMED Code(s): 30174100 Comment: - suspect this could be related to malnutrition - could also be residual effect of medication that were given yesterday - will decrease dose of atenolol to 50 mg and continue holding for SBP <100 or HR <60 - will get echocardigram (12) Hypokalemia Current Visit: Yes Status: Acute Code(s): E87.6 - HYPOKALEMIA SNOMED Code( s): 58386953 Comment: Will give potassium 60meq PO today (13) DVT prophylaxis Current Visit: Yes Status: Acute Code(s): WTU6580 - SNOMED Code(s): 987389359 Comment: heparin subQ (14) Full code status Current Visit: Yes Status: Acute Code(s): Z78.9 - OTHER SPECIFIED HEALTH STATUS SNOMED Code(s): 927350455 Status and Disposition: inpatient - will need rehab placement
[2017-10-22] MEDS: Magnesium Oxide TAB* 400 MG PO SCH (13:32)
--- NOTE | 2017-10-22 13:49 | CONS ---
CC: Beronica Suh NP; [facility]; [facility] * SURGICAL CONSULTATION REPORT: DATE OF CONSULT: 10/22/17 HISTORY OF PRESENT ILLNESS: I was contacted by the hospitalist service yesterday to evaluate Mrs. Cho, a 76-year-old female who presented to emergency room by EMS for worsening wounds that the patient's family were unable to care of. The story seems to start around 10 days ago when the patient was found down with her leg under a dresser. She was noted to have a right foot ulcer and a sacral ulcer after being down for approximately 8 hours. She was placed back into her chair where her family had difficulty to taking care of her. She does live alone. She is nonambulatory and cannot recall when she started being nonambulatory. She is incontinent and does not recorded when that started either. She remains in a undergarment and this apparently was changed by her family and according to the patient, they had given her her medications as well. It is unclear if she ate much during this time. It was felt that the patient's wounds were showing some improvement only to worsen and that has caused family to contact EMS. In the emergency room, the patient was noted to have likely bibasilar pneumonia as well as poorly-controlled diabetes along with the wounds and was admitted to the hospitalist service and started on cefepime. Cultures were taken from both buttock and the ankle and the blood and the urine. Blood cultures were negative over the course of the day. Urine culture is pending with some positive findings that are pending. Buttock wound culture still pending, currently negative for Staph aureus but the ankle showed Staph aureus positive but nonMRSA. The patient is a poor historian and most of this is gleaned from the record. Family is not present at this time. PAST MEDICAL HISTORY: Diabetes, hypertension, hypercholesterolemia. MEDICATIONS: List was reviewed. ALLERGIES: List was reviewed. PHYSICAL EXAM: The patient has been afebrile since arrival. Heart rate has been normal. Blood pressure was low at times yesterday. She did receive fair amount of fluid and is likely is positive over the course of 24 hours. She is awake, answers questions appropriately. She is oriented to person and place but not date. Examination of her head reveals trauma to the right forehead with some erythema, mild bogginess at the site. Tender only on deep pressure. No fluid is expressed. Extremities: Reveal lateral aspect of the right forefoot with a 5 x 4 x 0.1 cm wound with loosely adhered skin and subcutaneous tissue which was bluntly debrided off exposing underlying muscle. This does not tunnel. It is soupy and foul smelling but without any significant erythema around the periwound skin. The patient had significant lymphedema that is 2+ pitting throughout the extremity and foot. The patient also has an unstageable heel ulcer with the bruising but the skin is intact. Both these wounds were tender to touch. Sacral area reveal a 3 x 2 x 2 cm deep wound with skin drainage and necrotic debris, grade 4 sacral decubitus ulcer. The patient has an unstageable left ischial ulcer as well that is approximately 3 cm x 2 cm. She has other small hyperemic skin areas consistent with malnutrition but without clear open wounds. Edema throughout almost to the point of anasarca. DIAGNOSTIC STUDIES/LAB DATA: Labs reviewed showed elevated white blood cell count of 17 and remains elevated with an elevated CRP of . The patient's albumin is 2.6 with a prealbumin of 6. INR is normal. Blood glucose has been elevated and she is on insulin at this point with Lantus. Imaging includes an ankle x-ray, which the report is reviewed and not quite revealing. Chest x-ray report reviewed, which shows atelectasis. IMPRESSION: A 76-year-old female appears stated age, who is nonambulatory, poorly cared for, who has chronic wounds that are stable and surrounding picture of poorly controlled diabetes and malnutrition. PLAN: Plan is for 1. Topical wound care. 2. Nutrition. 3. Blood glucose control. RECOMMENDATIONS: Recommendation is for Santyl dressing daily for main wounds. We will follow daily in the short period for now until I feel more comfortable spreading out the visits, so I will see her tomorrow. She may require excisional debridement either at the bedside or in the operative room. She is currently on cefepime and that is reasonable. We will follow up the cultures. Recommendation is for nystatin cream to interstices of the pelvic and perineum area where she has a significant rash. I recommend an automatic turning bed for improvement and prevention with additional wounds. I recommend iron studies and vitamins. This was discussed with the hospitalist service and we will continue to follow. TIME SPENT: Overall 40 minutes was spent discussing the case with the patient and other services. [id number]/CPS #: [id number] ARMANDO
--- NOTE | 2017-10-22 14:32 | ECHO ---
Patient: CAROLYN ZAMBRANO [facility] Rec#: [id number] : 1940 Date: 10/22/2017 Age: 76y Height: 154.94 cm / 61.0 in Weight: 81.65 kg / 180.0 lbs Sex: F BSA: 1.81 Room#: 404 Admit Date#: 10/21/2017 Type: Inpatient Referring: Fidelia Israel Reading: Lencho Esquivel DO Grocery Manager: Madeleine Amaya RDCS CC: Beronica Suh NP Transthoracic Echocardiogram Indication: Abnormal EKG, hypotension. BP: 103/70 HR: 55 Rhythm: Bradycardia Findings History: DMII, HTN, CVA, HLD. Technical Comments: The study quality is fair. Completed at 1240. Left Ventricle: The left ventricular chamber size is normal. Mild concentric left ventricular hypertrophy is observed. Global left ventricular wall motion and contractility are within normal limits. There is normal left ventricular systolic function. The estimated ejection fraction is 55-60%. The assessment of diastolic function is non-diagnostic. Left Atrium: The left atrium is moderately dilated. Right Ventricle: The right ventricle is mildly dilated. The right ventricular global systolic function is low normal. Right Atrium: The right atrium is mildly dilated. Aortic Valve: The aortic valve is trileaflet. The aortic valve leaflets are mildly thickened. Mild aortic leaflet calcification is visualized. There is evidence of aortic sclerosis without stenosis. There is mild to moderate aortic regurgitation. There is no evidence of aortic stenosis. Mitral Valve: Moderate mitral annular calcification present. The mitral valve leaflets are mildly thickened. There is mild mitral regurgitation. There is no evidence of mitral stenosis. Tricuspid Valve: The tricuspid valve leaflets are normal. There is trace to mild tricuspid regurgitation. No pulmonary hypertension is noted. There is no tricuspid stenosis. Pulmonic Valve: The pulmonic valve appears normal. There is a trace pulmonic regurgitation. There is no pulmonic stenosis. Pericardium: There is no significant pericardial effusion. Aorta: There is mild dilatation of the ascending aorta. There is no dilatation of the aortic arch. The aortic root is normal in size. Pulmonary Artery: The main pulmonary artery is not well visualized. Venous: The inferior vena cava appears normal in size. There is a greater than 50% respiratory change in the inferior vena cava dimension. Conclusions The left ventricular chamber size is normal. Mild concentric left ventricular hypertrophy is observed. Global left ventricular wall motion and contractility are within normal limits. There is normal left ventricular systolic function. The estimated ejection fraction is 55-60%. The left atrium is moderately dilated. The right ventricle is mildly dilated. The right ventricular global systolic function is low normal. There is mild to moderate aortic regurgitation. Moderate mitral annular calcification present. Estimated PA systolic pressure is normal. None prior for comparison at time of interpretation. Measurements Name Value Normal Range RVIDd (AP) 2D 3.6 cm (0.9 - 2.6) RVDdMajor (2D) 3.8 cm (2.2 - 4.4) RAd ISD 4CH 5.1 cm (3.4 - 4.9) RA (A4C)W 4 cm (2.9 - 4.6) IVSd (2D) 1.2 cm (0.6 - 1) LVPWd (2D) 1.2 cm (0.6 - 1) LVIDd (2D) 4.4 cm (3.6 - 5.4) LVIDs (2D) 3.6 cm - LV FS (2D) 18 % (25 - 45) Aortic Annulus 1.9 cm (1.4 - 2.6) Ao root diameter (2D) 3.1 cm (2.1 - 3.5) Ascending Ao 3.6 cm (2.1 - 3.4) Aortic arch 2 cm (1.8 - 3.4) LAd ISD 4CH 5.6 cm (2.9 - 5.3) LA ISD 4CH W 4.8 cm (2.5 - 4.5) Name Value Normal Range LA ESV SP 4CH (A/L) 70 ml - Name Value Normal Range MV E-wave Vmax 0.83 m/sec - MV deceleration time 185.3 msec - MV A-wave Vmax 0.83 m/sec - MV E:A ratio 1 ratio - LV septal e' Vmax 0.04 m/sec - LV lateral e' Vmax 0.06 m/sec - LV E:e' septal ratio 20.75 ratio - LV E:e' lateral ratio 13.83 ratio - Name Value Normal Range AV Vmax 1.5 m/sec - AV VTI 35.5 cm - AV peak gradient 9.16 mmHg - AV mean gradient 4.84 mmHg - LVOT diameter 2 cm - LVOT Vmax 1.11 m/sec - LVOT VTI 23.58 cm - LVOT peak gradient 4.95 mmHg - LVOT mean gradient 2.13 mmHg - AR PHT 406 msec - AR peak gradient 31.31 mmHg - CECIL Vmax 0.62 m/sec - Name Value Normal Range TR Vmax 2.5 m/sec - TR peak gradient 25 mmHg - RAP 3 mmHg - RVSP 28 mmHg - IVC diameter 1.9 cm - Name Value Normal Range PV Vmax 0.87 m/sec - PV peak gradient 3.04 mmHg -
[2017-10-22] MEDS: Azithromycin IV(*) 500 MG in NS 0.9% 250 ML* 250 ML IVPB SCH (15:59)
[2017-10-22] MEDS ORDERED: Potassium Chlor TAB* 10 MEQ TAB.ER PO ONE (16:03)
[2017-10-23] MEDS: Cefepime 1 GM in Dextrose(*) 1 GM/50 ML BAG IV SCH ×2 (01:34→12:57)
[2017-10-23] MEDS: Heparin VIAL(*) 5000 UNITS/ML VIAL (FIVE THOUSAND) SUBCUT SCH ×3 (05:24→21:11)
[2017-10-23] MEDS: Omeprazole CAP* 20 MG PO SCH (05:24)
[2017-10-23 06:12] LABS: ABS Basophils 0 10^3/ul (0-0.2); ABS Eosinophils 0.2 10^3/ul (0-0.6); ABS Lymphocytes 1.2 10^3/ul (1.0-4.8); ABS Monocytes 0.4 10^3/ul (0-0.8); ABS Neutrophils 2.8 10^3/ul (1.5-7.7); ABS Nucleated RBC 0 10^3/ul; Hematocrit 38 % (35-47); Hemoglobin 12.9 g/dl (12.0-16.0); Lymphocyte % 25.2 % (25-47); Mean Corpuscular HGB Conc 34 g/dl (31-36); Mean Corpuscular Hemoglobin 31 pg (27-31); Mean Corpuscular Volume 91 fL (80-97); Mean Platelet Volume 7.9 um3 (7.4-10.4); Nucleated Red Blood Cells % 0.1; Platelet Count 251 10^3/ul (150-450); Red Blood Count 4.19 10^6/ul (4.0-5.4); Red Cell Distribution Width 15 % (10.5-15); White Blood Count 4.6 10^3/ul (3.5-10.8)
[2017-10-23 06:25] LABS: EGFR Non-African American 86.8 (>60)
[2017-10-23] MEDS: Atenolol TAB* 50 MG PO SCH (08:10)
[2017-10-23] MEDS: Insulin LISPRO* 1 UNITS UNIT SUBCUT SCH ×4 (08:10→21:11)
[2017-10-23] MEDS: FLUoxetine CAP* 20 MG PO SCH (08:10)
[2017-10-23] MEDS: Aspirin EC TAB* 81 MG TAB.EC PO SCH (08:10)
[2017-10-23] MEDS: Magnesium Oxide TAB* 400 MG PO SCH (08:10)
[2017-10-23] MEDS: Atorvastatin* 20 MG TAB PO SCH (08:10)
[2017-10-23] MEDS: Docusate CAP* 100 MG PO SCH ×2 (08:10→21:10)
[2017-10-23] MEDS: Nystatin TOP POWDER* 15 GM BTL TOPICAL SCH ×2 (09:00→21:11)
[2017-10-23] MEDS: Collagenase 250 MG/GM OINT* 30 GM TOPICAL SCH (09:00)
--- NOTE | 2017-10-23 14:04 | PN ---
Subjective Date of Service: 10/23/17 Interval History: c/o tailbone pain when sitting in the chair, Denies pain when lying in the bed. Denies chest pain or shortness of breath. Denies abd pain. n/v/d Family History: Unchanged from Admission Social History: Unchanged from Admission Past Medical History: Unchanged from Admission Objective Active Medications: Acetaminophen (Tylenol Tab*) 650 mg PO Q6H PRN PRN Reason: FEVER/PAIN Last Admin: 10/22/17 05:35 Dose: 650 mg Albuterol (Ventolin 2.5 Mg/3 Ml Neb.Mary*) 2.5 mg INH Q2H PRN PRN Reason: SOB/WHEEZING Aspirin (Aspirin Ec Tab*) 81 mg PO DAILY [facility] Last Admin: 10/23/17 08:10 Dose: 81 mg Atenolol (Tenormin Tab*) 50 mg PO DAILY [facility] Last Admin: 10/23/17 08:10 Dose: 50 mg Atorvastatin Calcium (Lipitor*) 20 mg PO DAILY [facility] Last Admin: 10/23/17 08:10 Dose: 20 mg Collagenase (Santyl 250 Mg/Gm Oint*) 1 applic TOPICAL DAILY [facility] Last Admin: 10/23/17 09:00 Dose: 1 applic Docusate Sodium (Colace Cap*) 100 mg PO BID [facility] Last Admin: 10/23/17 08:10 Dose: 100 mg Fluoxetine HCl (Prozac Cap*) 20 mg PO DAILY [facility] Last Admin: 10/23/17 08:10 Dose: 20 mg Heparin Sodium (Porcine) (Heparin Vial(*)) 5,000 units SUBCUT Q8HR [facility] Last Admin: 10/23/17 13:00 Dose: 5,000 units Cefepime HCl (Maxipime 1 Gm In Dextrose Duplex (*)) 1 gm in 50 mls @ 100 mls/ hr IV Q12H [facility] Last Admin: 10/23/17 12:57 Dose: 100 mls/hr Azithromycin 500 mg/ Sodium (Chloride) 250 mls @ 250 mls/hr IVPB Q24H [facility] Last Admin: 10/22/17 15:59 Dose: 250 mls/hr Insulin Human Lispro (Humalog*) 0 units SUBCUT ACHS [facility] PRN Reason: Protocol Last Admin: 10/23/17 12:59 Dose: 6 units Magnesium Oxide (Magox 400 Tab*) 400 mg PO DAILY [facility] Last Admin: 10/23/17 08:10 Dose: 400 mg Melatonin (Melatonin) 3 mg PO BEDTIME PRN; Protocol PRN Reason: Sleep Nystatin (Nystatin Top Powder*) 1 applic TOPICAL BID [facility] Last Admin: 10/23/17 09:00 Dose: 1 applic Omeprazole (Prilosec Cap*) 20 mg PO DAILY@0600 [facility] Last Admin: 10/23/17 05:24 Dose: 20 mg Ondansetron HCl (Zofran Odt Tab*) 4 mg PO Q6H PRN PRN Reason: n/v Vital Signs - 8 hr 10/23/17 10/23/17 10/23/17 07:33 08:00 08:09 Temperature 98.1 F Pulse Rate 60 62 Respiratory 18 18 Rate Blood Pressure 122/45 (mmHg) O2 Sat by Pulse 98 Oximetry 10/23/17 11:39 Temperature 98.9 F Pulse Rate 65 Respiratory 20 Rate Blood Pressure 113/39 (mmHg) O2 Sat by Pulse 100 Oximetry Oxygen Devices in Use Now: None Appearance: appears comfortable resting in bed. Eyes: No Scleral Icterus Ears/Nose/Mouth/Throat: Clear Oropharnyx, Mucous Membranes Moist Neck: NL Appearance and Movements; NL JVP, Trachea Midline Respiratory: Symmetrical Chest Expansion and Respiratory Effort, Clear to Auscultation Cardiovascular: NL Sounds; No Murmurs; No JVD, - - +1 pitting edema Abdominal: NL Sounds; No Tenderness; No Distention Extremities: No Clubbing, Cyanosis, - - +1 pitting edema, Skin: - - see attached pictures for details of open wounds Nutrition: Taking PO's Result Diagrams: 10/23/17 05:55 10/23/17 05:55 Additional Lab and Data: Left hip wound right heel coccyx right ankle right 5th toe Microbiology and Other Data: Microbiology 10/21/17 14:30 Skin and Soft Tissue MRSA/MSSA (PCR - Final Ankle Right Mrsa Negative S.aureus Positive Gram Stain - Final 10/21/17 14:30 Skin and Soft Tissue MRSA/MSSA (PCR - Final Buttock Mrsa Negative S.aureus Negative Gram Stain - Final Assess/Plan/Problems-Billing Assessment: Ms. Cho is a 76 y.o female with a past medical hx significant for HTN, DM, HLD and depression. Who presented to the ER for weakness, open wounds. Patient was found to have pneumonia. - Patient Problems (1) Pneumonia Current Visit: Yes Status: Acute Code(s): J18.9 - PNEUMONIA, UNSPECIFIED ORGANISM SNOMED Code(s): 140117744 Comment: Will continue antibiotics to azithromycin and cefepime- for pneumonia - urine culture negative for legionella and s.pneumo - remains afebrile (2) Pressure ulcer Current Visit: Yes Status: Acute Code(s): L89.90 - PRESSURE ULCER OF UNSPECIFIED SITE, UNSPECIFIED STAGE SNOMED Code(s): 531882588 Comment: surgery recommendation appreciated coccyx, right ankle, right toe, left hip ulcer- dressings per surgery air mattress to bed- will order speciality bed reposition Q2 hours right ankle ulcer positive for MSSA- will continue cefepime - cultures of the ankle and buttock wounds- positive for providencia rettgeri, clostridium ramosum, streptococcus anginosus and berteroides fragilis Anaerobic Blood culture is positive for - Gram Positive bacilli- will add clindamycin for anaerobic coverage - sens. pending (3) Malnutrition Current Visit: Yes Status: Acute Code(s): E46 - UNSPECIFIED PROTEIN-CALORIE MALNUTRITION SNOMED Code(s): 79543982 Comment: - poor po intake for 10 days prior to arrival to the hospital - multiple open wounds noted to body, edema to lower legs - albumin low 2.6 - prealbumin 6 - nutrition consulted (4) Hypotension Current Visit: Yes Status: Acute Comment: -suspect this is related to her medications- improved today SBP 120's - atenolol dose change to 50 mg and hold for SBP less than 100 and hr less than 60 -stopped losartan and cardizem - after medications clarified - repeat lactic acid- WNL (5) Diabetes mellitus type 2 Current Visit: No Status: Active Priority: Low Code(s): E11.9 - TYPE 2 DIABETES MELLITUS WITHOUT COMPLICATIONS SNOMED Code(s): 65840518 Comment: finger sticks AC and HS with SS lispro coverage - changed SS scale to BMI greater that 30 - increased Lantus to 30 units Q pm (6) Essential hypertension Current Visit: No Status: Active Priority: Low Code(s): I10 - ESSENTIAL ( PRIMARY) HYPERTENSION SNOMED Code(s): 73935984 Comment: medications clarified - take atenolol and lisinopril/ HCTZ at home - d/c'd lorsartan and cardizem- patient was hypotensive throughtout the day after AM medicaitons - decreased the dose of atenolol to 50 mg with holding for SBP < 100 and HR < 60 \ - will continue to hold lisinopril/ HCTZ (7) Hypercholesterolemia Current Visit: No Status: Active Priority: Low Code(s): E78.0 - PURE HYPERCHOLESTEROLEMIA * DO NOT USE * SNOMED Code(s): 87346259 Comment: continue lipitor (8) Elevated serum creatinine Current Visit: Yes Status: Acute Code(s): R79.89 - OTHER SPECIFIED ABNORMAL FINDINGS OF BLOOD CHEMISTRY SNOMED Code(s): 852391310 Comment: - suspect this is related to hypoperfusion she experienced yesterday - will avoid nephotoxic agents - repeated BMPcreatintine returned to base line (9) Hypomagnesemia Current Visit: Yes Status: Acute Code(s): E83.42 - HYPOMAGNESEMIA SNOMED Code(s): 557290440 Comment: magnesium 1.9 today - will continue magnesium oxide 400mg po daily - repeat magnesium level tomorrow (10) Edema Current Visit: Yes Status: Acute Code(s): R60.9 - EDEMA, UNSPECIFIED SNOMED Code(s): 691336924 Comment: -suspect this is related to fluid volume that patient recieved yesterday for management of hypotension - also suspect that this could be related to malnutrition, as the patient had a low albumin level (11) Bradycardia Current Visit: Yes Status: Acute Code(s): R00.1 - BRADYCARDIA, UNSPECIFIED SNOMED Code(s): 78859194 Comment: - suspect this could be related to malnutrition - could also be residual effect of medication that were given yesterday or could be her baseline heart rate. - will decrease dose of atenolol to 50 mg and continue holding for SBP <100 or HR <60 - will get echocardigram- EF 55-60% (12) DVT prophylaxis Current Visit: Yes Status: Acute Code(s): MYG7557 - SNOMED Code(s): 236037205 Comment: heparin subQ (13) Full code status Current Visit: Yes Status: Acute Code(s): Z78.9 - OTHER SPECIFIED HEALTH STATUS SNOMED Code(s): 158615897 Status and Disposition: inpatient - will need rehab placement
[2017-10-23] MEDS: Azithromycin IV(*) 500 MG in NS 0.9% 250 ML* 250 ML IVPB SCH (14:34)
--- NOTE | 2017-10-23 16:43 | PN ---
Progress Note - Progress Note Date of Service: 10/23/17 SOAP: Subjective: Patient seen and wounds addressed. Patient feels unchanged from yesterday. Physical therapy is come to her room. Objective: Afebrile normotensive Head: Unchanged cellulitis at the forehead. Boggy but without fluctuance. Right foot: Continued weepage from the forefoot ulcer. No evidence of ischemia. Heel ulcer still unstageable and unchanged. Sacrum: Unchanged stage IV pressure ulcer with some fibrinous tissue in the base that would likely benefit from debridement either excisionally or chemically. Left ischial ulcer is unstageable with dark eschar. Assessment: Pressure ulcers at the sacrum, left issue, and right foot. Plan: Continue current management. I will see patient tomorrow for possible bedside excision
[2017-10-23] MEDS: Clindamycin 600 MG IVPREMIX(* 600 MG/50 ML SDV IV SCH (19:27)
[2017-10-24] MEDS: Cefepime 1 GM in Dextrose(*) 1 GM/50 ML BAG IV SCH ×2 (01:42→13:12)
[2017-10-24] MEDS: Clindamycin 600 MG IVPREMIX(* 600 MG/50 ML SDV IV SCH ×3 (02:25→17:31)
[2017-10-24] MEDS: Heparin VIAL(*) 5000 UNITS/ML VIAL (FIVE THOUSAND) SUBCUT SCH ×3 (05:25→21:11)
[2017-10-24] MEDS: Omeprazole CAP* 20 MG PO SCH (05:25)
[2017-10-24 05:36] LABS: ABS Basophils 0.1 10^3/ul (0-0.2); ABS Eosinophils 0.2 10^3/ul (0-0.6); ABS Lymphocytes 1.1 10^3/ul (1.0-4.8); ABS Monocytes 0.7 10^3/ul (0-0.8); ABS Neutrophils 12.7 10^3/ul (1.5-7.7); ABS Nucleated RBC 0 10^3/ul; Eosinophil % 1.1 % (0-6); Hematocrit 35 % (35-47); Hemoglobin 11.2 g/dl (12.0-16.0); Lymphocyte % 7.5 % (25-47); Mean Corpuscular HGB Conc 32 g/dl (31-36); Mean Corpuscular Hemoglobin 28 pg (27-31); Mean Corpuscular Volume 88 fL (80-97); Mean Platelet Volume 6.6 um3 (7.4-10.4); Nucleated Red Blood Cells % 0.1; Platelet Count 358 10^3/ul (150-450); Red Blood Count 3.95 10^6/ul (4.00-5.40); Red Cell Distribution Width 15 % (10.5-15); White Blood Count 14.7 10^3/ul (3.5-10.8)
[2017-10-24 05:53] LABS: EGFR Non-African American 77.3 (>60)
[2017-10-24] MEDS: Insulin LISPRO* 1 UNITS UNIT SUBCUT SCH ×4 (08:14→21:10)
[2017-10-24] MEDS: Magnesium Oxide TAB* 400 MG PO SCH (08:20)
[2017-10-24] MEDS: Atenolol TAB* 50 MG PO SCH (08:23)
[2017-10-24] MEDS: Atorvastatin* 20 MG TAB PO SCH (08:23)
[2017-10-24] MEDS: Aspirin EC TAB* 81 MG TAB.EC PO SCH (08:23)
[2017-10-24] MEDS: FLUoxetine CAP* 20 MG PO SCH (08:23)
[2017-10-24] MEDS: Docusate CAP* 100 MG PO SCH ×2 (08:23→21:10)
[2017-10-24] MEDS: Nystatin TOP POWDER* 15 GM BTL TOPICAL SCH ×2 (09:00→21:10)
[2017-10-24] MEDS: Collagenase 250 MG/GM OINT* 30 GM TOPICAL SCH (09:00)
[2017-10-24] MEDS: Azithromycin IV(*) 500 MG in NS 0.9% 250 ML* 250 ML IVPB SCH (14:00)
--- NOTE | 2017-10-24 22:23 | PN ---
Subjective Date of Service: 10/24/17 Interval History: More awake today, alert and oriented. States that pain is currently controlled. does report mild pain when sitting in the chair to her coccyx. c/ o pain to right forehead with palpation to right temporal region reddened and swollen area. Denies chest pain or shortness of breath. denies abd pain n/v/d Family History: Unchanged from Admission Social History: Unchanged from Admission Past Medical History: Unchanged from Admission Objective Active Medications: Acetaminophen (Tylenol Tab*) 650 mg PO Q6H PRN PRN Reason: FEVER/PAIN Last Admin: 10/22/17 05:35 Dose: 650 mg Albuterol (Ventolin 2.5 Mg/3 Ml Neb.Mary*) 2.5 mg INH Q2H PRN PRN Reason: SOB/WHEEZING Aspirin (Aspirin Ec Tab*) 81 mg PO DAILY [facility] Last Admin: 10/24/17 08:23 Dose: 81 mg Atenolol (Tenormin Tab*) 50 mg PO DAILY [facility] Last Admin: 10/24/17 08:23 Dose: 50 mg Atorvastatin Calcium (Lipitor*) 20 mg PO DAILY [facility] Last Admin: 10/24/17 08:23 Dose: 20 mg Collagenase (Santyl 250 Mg/Gm Oint*) 1 applic TOPICAL DAILY [facility] Last Admin: 10/24/17 09:00 Dose: 1 applic Docusate Sodium (Colace Cap*) 100 mg PO BID [facility] Last Admin: 10/24/17 21:10 Dose: 100 mg Fluoxetine HCl (Prozac Cap*) 20 mg PO DAILY [facility] Last Admin: 10/24/17 08:23 Dose: 20 mg Heparin Sodium (Porcine) (Heparin Vial(*)) 5,000 units SUBCUT Q8HR [facility] Last Admin: 10/24/17 21:11 Dose: 5,000 units Cefepime HCl (Maxipime 1 Gm In Dextrose Duplex (*)) 1 gm in 50 mls @ 100 mls/ hr IV Q12H [facility] Last Admin: 10/24/17 13:12 Dose: 100 mls/hr Azithromycin 500 mg/ Sodium (Chloride) 250 mls @ 250 mls/hr IVPB Q24H [facility] Last Admin: 10/24/17 14:00 Dose: 250 mls/hr Clindamycin HCl/Dextrose (Cleocin 600 Mg Ivpremix(*) Sdv) 600 mg in 50 mls @ 100 mls/hr IV Q8H [facility] Last Admin: 10/24/17 17:31 Dose: 100 mls/hr Insulin Human Lispro (Humalog*) 0 units SUBCUT ACHS [facility] PRN Reason: Protocol Last Admin: 10/24/17 21:10 Dose: 9 units Melatonin (Melatonin) 3 mg PO BEDTIME PRN; Protocol PRN Reason: Sleep Last Admin: 10/24/17 21:10 Dose: 3 mg Nystatin (Nystatin Top Powder*) 1 applic TOPICAL BID [facility] Last Admin: 10/24/17 21:10 Dose: 1 applic Omeprazole (Prilosec Cap*) 20 mg PO DAILY@0600 [facility] Last Admin: 10/24/17 05:25 Dose: 20 mg Ondansetron HCl (Zofran Odt Tab*) 4 mg PO Q6H PRN PRN Reason: n/v Vital Signs - 8 hr 10/24/17 10/24/17 10/24/17 15:52 18:44 20:00 Temperature 98.5 F 99.3 F Pulse Rate 59 67 Respiratory 24 20 13 Rate Blood Pressure 117/43 135/68 (mmHg) O2 Sat by Pulse 100 98 Oximetry Oxygen Devices in Use Now: None Appearance: appears comfortable resting in bed. alert Eyes: No Scleral Icterus Ears/Nose/Mouth/Throat: Clear Oropharnyx, Mucous Membranes Moist Neck: NL Appearance and Movements; NL JVP, Trachea Midline Respiratory: Symmetrical Chest Expansion and Respiratory Effort, Clear to Auscultation Cardiovascular: NL Sounds; No Murmurs; No JVD, No Edema Abdominal: NL Sounds; No Tenderness; No Distention Extremities: No Edema, No Clubbing, Cyanosis Skin: No Rash or Ulcers, No Nodules or Sclerosis Neurological: Alert and Oriented x 3, NL Muscle Strength and Tone Nutrition: Taking PO's Result Diagrams: 10/24/17 05:27 10/24/17 05:27 Additional Lab and Data: Left hip wound right heel coccyx right ankle right 5th toe Microbiology and Other Data: Microbiology 10/21/17 14:30 Skin and Soft Tissue MRSA/MSSA (PCR - Final Ankle Right Mrsa Negative S.aureus Positive Gram Stain - Final 10/21/17 14:30 Skin and Soft Tissue MRSA/MSSA (PCR - Final Buttock Mrsa Negative S.aureus Negative Gram Stain - Final Assess/Plan/Problems-Billing Assessment: Ms. Cho is a 76 y.o female with a past medical hx significant for HTN, DM, HLD and depression. Who presented to the ER for weakness, open wounds. Patient was found to have pneumonia. - Patient Problems (1) Pneumonia Current Visit: Yes Status: Acute Code(s): J18.9 - PNEUMONIA, UNSPECIFIED ORGANISM SNOMED Code(s): 171932667 Comment: Will continue antibiotics to azithromycin and cefepime- for pneumonia - urine culture negative for legionella and s.pneumo - remains afebrile (2) Pressure ulcer Current Visit: Yes Status: Acute Code(s): L89.90 - PRESSURE ULCER OF UNSPECIFIED SITE, UNSPECIFIED STAGE SNOMED Code(s): 231894379 Comment: surgery consulted recommendations appreciated coccyx, right ankle, right toe, left hip ulcer- dressings per surgery air mattress to bed- speciality bed reposition Q2 hours right ankle ulcer positive for MSSA- will continue cefepime - cultures of the ankle and buttock wounds- positive for providencia rettgeri, clostridium ramosum, streptococcus anginosus and berteroides fragilis Anaerobic Blood culture is positive for - Gram Positive bacilli- Clostridium Sporogenes- continue clindamycin - sens. pending ID consulted (3) Malnutrition Current Visit: Yes Status: Acute Code(s): E46 - UNSPECIFIED PROTEIN-CALORIE MALNUTRITION SNOMED Code(s): 25134396 Comment: - poor po intake for 10 days prior to arrival to the hospital - multiple open wounds noted to body, edema to lower legs - albumin low 2.6- on admission - prealbumin 6 on admission - nutrition consulted (4) Hypotension Current Visit: Yes Status: Acute Comment: -suspect this is related to her medications- improved today SBP 120's- 130's - atenolol dose change to 50 mg and hold for SBP less than 100 and hr less than 60 -stopped losartan and cardizem - after medications clarified - repeat lactic acid- WNL (5) Diabetes mellitus type 2 Current Visit: No Status: Active Priority: Low Code(s): E11.9 - TYPE 2 DIABETES MELLITUS WITHOUT COMPLICATIONS SNOMED Code(s): 64720391 Comment: finger sticks AC and HS with SS lispro coverage - changed SS scale to BMI greater that 30 - increased Lantus to 30 units Q pm (6) Essential hypertension Current Visit: No Status: Active Priority: Low Code(s): I10 - ESSENTIAL ( PRIMARY) HYPERTENSION SNOMED Code(s): 58540616 Comment: medications clarified - take atenolol and lisinopril/ HCTZ at home - d/c'd lorsartan and cardizem- patient was hypotensive throughtout the day after AM medicaitons - decreased the dose of atenolol to 50 mg with holding for SBP < 100 and HR < 60 \ - will continue to hold lisinopril/ HCTZ (7) Hypercholesterolemia Current Visit: No Status: Active Priority: Low Code(s): E78.0 - PURE HYPERCHOLESTEROLEMIA * DO NOT USE * SNOMED Code(s): 36658577 Comment: continue lipitor (8) Elevated serum creatinine Current Visit: Yes Status: Acute Code(s): R79.89 - OTHER SPECIFIED ABNORMAL FINDINGS OF BLOOD CHEMISTRY SNOMED Code(s): 880677514 Comment: - suspect this is related to hypoperfusion she experienced yesterday - will avoid nephotoxic agents - repeated BMPcreatintine returned to base line (9) Hypomagnesemia Current Visit: Yes Status: Acute Code(s): E83.42 - HYPOMAGNESEMIA SNOMED Code(s): 838825477 Comment: magnesium 2.0 today - will continue magnesium oxide 400mg po daily (10) Edema Current Visit: Yes Status: Acute Code(s): R60.9 - EDEMA, UNSPECIFIED SNOMED Code(s): 405152853 Comment: -suspect this is related to fluid volume that patient recieved yesterday for management of hypotension - improved today - also suspect that this could be related to malnutrition, as the patient had a low albumin level (11) Bradycardia Current Visit: Yes Status: Acute Code(s): R00.1 - BRADYCARDIA, UNSPECIFIED SNOMED Code(s): 65433807 Comment: - suspect this could be related to malnutrition - could also be residual effect of medication that were given yesterday or could be her baseline heart rate. - will decrease dose of atenolol to 50 mg and continue holding for SBP <100 or HR <60 - will get echocardigram- EF 55-60% (12) DVT prophylaxis Current Visit: Yes Status: Acute Code(s): IRW4856 - SNOMED Code(s): 230472469 Comment: heparin subQ (13) Full code status Current Visit: Yes Status: Acute Code(s): Z78.9 - OTHER SPECIFIED HEALTH STATUS SNOMED Code(s): 061446045 Status and Disposition: inpatient - will need rehab placement
[2017-10-25] MEDS: Cefepime 1 GM in Dextrose(*) 1 GM/50 ML BAG IV SCH (01:34)
[2017-10-25] MEDS: Clindamycin 600 MG IVPREMIX(* 600 MG/50 ML SDV IV SCH ×2 (02:19→09:45)
[2017-10-25] MEDS: Omeprazole CAP* 20 MG PO SCH (05:53)
[2017-10-25] MEDS: Heparin VIAL(*) 5000 UNITS/ML VIAL (FIVE THOUSAND) SUBCUT SCH ×3 (05:53→21:41)
[2017-10-25] MEDS: Insulin LISPRO* 1 UNITS UNIT SUBCUT SCH ×4 (08:33→21:40)
[2017-10-25] MEDS: Atenolol TAB* 50 MG PO SCH (09:43)
[2017-10-25] MEDS: Docusate CAP* 100 MG PO SCH ×2 (09:44→21:40)
[2017-10-25] MEDS: FLUoxetine CAP* 20 MG PO SCH (09:44)
[2017-10-25] MEDS: Aspirin EC TAB* 81 MG TAB.EC PO SCH (09:44)
[2017-10-25] MEDS: Atorvastatin* 20 MG TAB PO SCH (09:44)
[2017-10-25] MEDS: Nystatin TOP POWDER* 15 GM BTL TOPICAL SCH ×2 (09:45→21:40)
[2017-10-25] MEDS ORDERED: Lidocain 1% EPI 1:100,000 * 30 ML MDV INJ ONE (10:43)
[2017-10-25] MEDS: metroNIDAZOLE IV 500 MG/100ML* 500 MG/100 ML BAG IVPB SCH ×2 (11:28→23:11)
--- NOTE | 2017-10-25 12:06 | CONS ---
CONSULTATION REPORT: DATE OF CONSULT: 10/25/17 REQUESTING PROVIDER: Fidelia Israel NP CONSULTING SERVICE: Infectious Disease. REASON FOR CONSULTATION: Decubitus ulcer. IMPRESSION: 1. Sacral decubitus ulcer with some foul odor, fibrinous slough, suspect underlying acute osteomyelitis. 2. Right lateral ankle ulceration, pressure related. No evidence of cellulitis or deeper infection there. The ankle joint is not tender or painful with range of motion. 3. Right forehead cellulitis with question underlying abscess versus hematoma. 4. PENICILLIN and SULFA allergies, unknown reactions. 5. Found down for a prolonged time before this admission. 6. Type 2 diabetes. RECOMMENDATIONS: Change cefepime to ceftriaxone 1 g a day. We will add Flagyl 500 mg IV every 12 hours and stop the clindamycin and stop azithromycin. May need debridement of the sacral decubitus ulceration. HISTORY OF PRESENT ILLNESS: This is a 76-year-old woman, found down by her family members and then they helped her to a chair for a while, but had progression of her injuries, came to the hospital on the 10/20/17. A chest x- ray showed atelectasis versus infiltrate. C-reactive protein was 193. She had a leukocytosis of 17,000. She was started on cefepime. Blood cultures came back one bottle of Clostridium sporogenes and urine culture was negative. Right ankle PCR showed Staph aureus, MRSA negative. The cultures growing Providencia and Bacteroides. Buttock cultures growing Bacteroides, Clostridium and Strep anginosus. The blood culture later on 10/21/17 was negative. She has the right forehead bump, which she says is not painful. The ankle which was not painful, but the sacral decubitus is painful. PAST MEDICAL HISTORY: 1. Type 2 diabetes. 2. Hypertension. 3. Hyperlipidemia. 4. Depression. 5. Anxiety. MEDICATIONS: 1. Tylenol. 2. Albuterol. 3. Aspirin. 4. Atenolol. 5. Lipitor. 6. Azithromycin 500 mg IV daily. 7. Docusate. 8. Fluoxetine. 9. Heparin subcutaneous injection. 10. Omeprazole. 11. Clindamycin 600 mg IV every 8 hours. 12. Cefepime 1 g every 12 hours. ALLERGIES: PENICILLIN caused anaphylaxis, SULFA caused rash according to our system. FAMILY HISTORY: No recurrent infections. SOCIAL HISTORY: She lives by herself in [place]. No travel. No sick contacts. REVIEW OF SYSTEMS: All negative except as noted above in the 14-point review of systems. PHYSICAL EXAM: Vital Signs: Temperature 37, heart rate 60, respiratory rate 20 , blood pressure 113/40, oxygen saturation 98% on room air. In general, she is awake, in no distress. Neurologic: She is oriented, follows commands. HEENT: There is no conjunctival hemorrhage. There is a right forehead area of mild fluctuance with overlying erythema, which is nontender. There is no expressible fluid. Neck: Supple without mass. Heart: Regular rate and rhythm without murmurs, rubs or gallops. Lungs: Clear to auscultation bilaterally. Abdomen: Soft, nontender, nondistended. There are bowel sounds present. Skin: There is no rash or splinter hemorrhage. Musculoskeletal: There is a right lateral ankle ulcer of about 2.5 cm in diameter with some underlying fibrin. No surrounding erythema. There is a right lateral pinky toe ulcer. There is a sacral decubitus ulcer with foul odor, fibrinous slough. No surrounding erythema. DIAGNOSTIC STUDIES/LAB DATA: White blood cell count 14, hemoglobin 11, platelets 358. Creatinine 0.7. Please see impressions and recommendations as outlined above, which I have discussed with Fidelia Israel NP. Thanks for asking me to see Ms. Cho in consultation. [id number]/[facility] #: [id number] MTDD
[2017-10-25] MEDS: cefTRIAXone(*) 1 GM in NS 0.9% 50 ML* 50 ML IVPB SCH (12:59)
--- NOTE | 2017-10-25 15:15 | PN ---
Subjective Date of Service: 10/25/17 Interval History: No overnight events. Feels okay today. No pain. She does not remember why she is in the hospital. Family History: Unchanged from Admission Social History: Unchanged from Admission Past Medical History: Unchanged from Admission Objective Active Medications: Acetaminophen (Tylenol Tab*) 650 mg PO Q6H PRN PRN Reason: FEVER/PAIN Last Admin: 10/22/17 05:35 Dose: 650 mg Albuterol (Ventolin 2.5 Mg/3 Ml Neb.Mary*) 2.5 mg INH Q2H PRN PRN Reason: SOB/WHEEZING Aspirin (Aspirin Ec Tab*) 81 mg PO DAILY [facility] Last Admin: 10/25/17 09:44 Dose: 81 mg Atenolol (Tenormin Tab*) 50 mg PO DAILY [facility] Last Admin: 10/25/17 09:43 Dose: 50 mg Atorvastatin Calcium (Lipitor*) 20 mg PO DAILY [facility] Last Admin: 10/25/17 09:44 Dose: 20 mg Collagenase (Santyl 250 Mg/Gm Oint*) 1 applic TOPICAL DAILY [facility] Last Admin: 10/24/17 09:00 Dose: 1 applic Docusate Sodium (Colace Cap*) 100 mg PO BID [facility] Last Admin: 10/25/17 09:44 Dose: 100 mg Fluoxetine HCl (Prozac Cap*) 20 mg PO DAILY [facility] Last Admin: 10/25/17 09:44 Dose: 20 mg Heparin Sodium (Porcine) (Heparin Vial(*)) 5,000 units SUBCUT Q8HR [facility] Last Admin: 10/25/17 13:01 Dose: 5,000 units Ceftriaxone Sodium 1 gm/ (Sodium Chloride) 50 mls @ 200 mls/hr IVPB Q24H [facility] Last Admin: 10/25/17 12:59 Dose: 200 mls/hr Metronidazole/Sodium Chloride (Flagyl 500 Mg Ivpb*) 500 mg in 100 mls @ 100 mls /hr IVPB Q12H [facility] Last Admin: 10/25/17 11:28 Dose: 100 mls/hr Insulin Human Lispro (Humalog*) 0 units SUBCUT ACHS [facility] PRN Reason: Protocol Last Admin: 10/25/17 12:25 Dose: 9 units Melatonin (Melatonin) 3 mg PO BEDTIME PRN; Protocol PRN Reason: Sleep Last Admin: 10/24/17 21:10 Dose: 3 mg Nystatin (Nystatin Top Powder*) 1 applic TOPICAL BID [facility] Last Admin: 10/25/17 09:45 Dose: 1 applic Omeprazole (Prilosec Cap*) 20 mg PO DAILY@0600 [facility] Last Admin: 10/25/17 05:53 Dose: 20 mg Ondansetron HCl (Zofran Odt Tab*) 4 mg PO Q6H PRN PRN Reason: n/v Vital Signs - 8 hr 10/25/17 10/25/17 10/25/17 07:24 07:25 07:56 Temperature 98.4 F Pulse Rate 68 61 Respiratory 20 22 Rate Blood Pressure 113/40 (mmHg) O2 Sat by Pulse 97 97 98 Oximetry 10/25/17 10/25/17 08:00 11:17 Temperature 98.5 F Pulse Rate 60 Respiratory 16 22 Rate Blood Pressure 119/46 (mmHg) O2 Sat by Pulse 99 Oximetry Oxygen Devices in Use Now: None Appearance: alert, pleasant, nontoxic Eyes: No Scleral Icterus Ears/Nose/Mouth/Throat: NL Teeth, Lips, Gums Neck: NL Appearance and Movements; NL JVP Respiratory: Symmetrical Chest Expansion and Respiratory Effort, Clear to Auscultation Cardiovascular: NL Sounds; No Murmurs; No JVD, RRR Abdominal: NL Sounds; No Tenderness; No Distention Lymphatic: No Cervical Adenopathy Extremities: - - decreased sensation right toes, in tact sensation left toes. Skin: - - heel wound dressed Result Diagrams: 10/24/17 05:27 10/24/17 05:27 Additional Lab and Data: Left hip wound right heel coccyx right ankle right 5th toe Microbiology and Other Data: Microbiology 10/21/17 14:30 Skin and Soft Tissue MRSA/MSSA (PCR - Final Ankle Right Mrsa Negative S.aureus Positive Gram Stain - Final 10/21/17 14:30 Skin and Soft Tissue MRSA/MSSA (PCR - Final Buttock Mrsa Negative S.aureus Negative Gram Stain - Final Assess/Plan/Problems-Billing Assessment: Ms. Cho is a 76 y.o female with a past medical hx significant for HTN, DM, HLD and depression. Who presented to the ER for weakness, open wounds. Patient was found to have pneumonia. - Patient Problems (1) Sepsis Current Visit: Yes Status: Acute Comment: present on admission per SIRs criteria likely due to pneumonia +/- multiple pressure ulcers ID consulted continue ceftriaxone and flagyl (2) Malnutrition Current Visit: Yes Status: Acute Code(s): E46 - UNSPECIFIED PROTEIN-CALORIE MALNUTRITION SNOMED Code(s): 05872212 Comment: albumin low 2.6 on admission prealbumin 6 on admission nutrition consulted (3) Pneumonia Current Visit: Yes Status: Acute Code(s): J18.9 - PNEUMONIA, UNSPECIFIED ORGANISM SNOMED Code(s): 749558482 Comment: ceftriaxone day 5 (4) Pressure ulcer Current Visit: Yes Status: Acute Code(s): L89.90 - PRESSURE ULCER OF UNSPECIFIED SITE, UNSPECIFIED STAGE SNOMED Code(s): 665135752 Comment: surgery consult for possible debridement air mattress to bed- speciality bed reposition Q2 hours right ankle ulcer positive for MSSA- will continue cefepime - cultures of the ankle and buttock wounds- positive for providencia rettgeri, clostridium ramosum, streptococcus anginosus and berteroides fragilis Anaerobic Blood culture is positive for - Gram Positive bacilli- Clostridium Sporogenes- continue clindamycin - sens. pending ID consulted (5) Diabetes mellitus type 2 Current Visit: No Status: Active Priority: Low Code(s): E11.9 - TYPE 2 DIABETES MELLITUS WITHOUT COMPLICATIONS SNOMED Code(s): 18633097 Comment: finger sticks AC and HS with SS lispro coverag needs long acting insulin takes humalog at home, not on formulary will start NPH bid (6) Essential hypertension Current Visit: No Status: Active Priority: Low Code(s): I10 - ESSENTIAL ( PRIMARY) HYPERTENSION SNOMED Code(s): 70398060 Comment: normotensive with hctz/lisinopril on hold Status and Disposition: inpatient - will need rehab placement
[2017-10-25] MEDS: oxyCODONE/Acetamin 5/325 MG* TAB PO PRN (16:28)
[2017-10-25] MEDS: Collagenase 250 MG/GM OINT* 30 GM TOPICAL SCH (16:28)
[2017-10-25] MEDS ORDERED: Bisacodyl SUPP* 10 MG SUPP PR PRN (20:55)
[2017-10-25] MEDS ORDERED: Magnesium Hydroxide LIQ* 30 ML UDC PO PRN (20:55)
[2017-10-25] MEDS: Senna TAB PO SCH (21:40)
[2017-10-26] MEDS: Omeprazole CAP* 20 MG PO SCH (05:27)
[2017-10-26] MEDS: Heparin VIAL(*) 5000 UNITS/ML VIAL (FIVE THOUSAND) SUBCUT SCH ×3 (05:27→21:37)
[2017-10-26] MEDS: oxyCODONE/Acetamin 5/325 MG* TAB PO PRN ×2 (05:39→13:05)
[2017-10-26 06:15] LABS: Hematocrit 32 % (35-47); Hemoglobin 10.5 g/dl (12.0-16.0); Mean Corpuscular HGB Conc 33 g/dl (31-36); Mean Corpuscular Hemoglobin 29 pg (27-31); Mean Corpuscular Volume 87 fL (80-97); Mean Platelet Volume 6.5 um3 (7.4-10.4); Platelet Count 403 10^3/ul (150-450); Red Blood Count 3.67 10^6/ul (4.00-5.40); Red Cell Distribution Width 15 % (10.5-15); White Blood Count 12.7 10^3/ul (3.5-10.8)
[2017-10-26 06:42] LABS: ABS Basophils 0.1 10^3/ul (0-0.2); ABS Eosinophils 0.1 10^3/ul (0-0.6); ABS Lymphocytes 1.2 10^3/ul (1.0-4.8); ABS Monocytes 0.8 10^3/ul (0-0.8); ABS Neutrophils 10.5 10^3/ul (1.5-7.7); ABS Nucleated RBC 0 10^3/ul; Lymphocyte % 9.3 % (25-47); Nucleated Red Blood Cells % 0
--- NOTE | 2017-10-26 08:03 | PRO ---
CC: Beronica Suh NP; [facility] PROCEDURE REPORT: DATE OF PROCEDURE: DATE OF : 38 SURGEON: Lencho Mendez MD PREPROCEDURE DIAGNOSES: 1. Right forehead abscess. 2. Right foot ulcer. 3. Right fifth toe ulcer. 4. Sacral ulcer. POSTPROCEDURE DIAGNOSES: 1. Right forehead abscess. 2. Right foot ulcer. 3. Right fifth toe ulcer. 4. Sacral ulcer. PROCEDURE: 1. Incision and drainage of right forehead lesions. 2. Excisional debridement of right foot ulcer and right 5th toe ulcer. 3. Excisional debridement of sacral ulcer and drainage of subcutaneous collection with irrigation. ESTIMATED BLOOD LOSS: Minimal. SPECIMENS: Culture from the forehead. The patient tolerated the procedure well. INDICATIONS: Ms. Cho is a 76-year-old female who I had counseled on earlier this week, who was found down and suffered decubitus ulcers both on the right foot and the sacrum and the left ischium. The patient continued to have the cellulitis in her forehead and concern for possible abscess at this site was entertained. I evaluated her this morning and recommended the above procedure. I stated what my intentions were and the patient understood and the consent was signed. DESCRIPTION OF PROCEDURE: A time-out was performed in the patient's room, the forehead lesion was prepped and draped sterilely and injection of lidocaine for a local block was carried out. Incision was made and abscess cavity entered. This was a simple abscess to the forehead, it was drained with nonfoul-smelling pus. Cultures were obtained and sent. We then irrigated the wound and packed with 1/4- inch Iodoform packing followed by 4x4 and paper tape. Attention was then turned towards the right foot. We prepped the area and injected lidocaine for local block around the forefoot ulcer. This ulcer measured 5 cm x 4 cm x less than 1 cm deep, had epiboly on the posterior aspect and exposed muscle with fibrinous exudative tissue that was loosely adhered. We utilized scalpel to debride off the exudative tissue along with biofilm and then after injection of lidocaine along the posterior aspect we excised the epiboly at this site and cleared out the tunneled area posteriorly again with the scalpel. The wound bed was clean where we finished. Again there was exposed muscle, there was no exposed bone. The wound was dressed with collagenase and 4x4 followed by Kerlix gauze after we addressed the toe. At the interstitial space between the 5th and 4th toe was a subcentimeter eschar that had started to lift off. It was foul smelling. We lifted this off and excised the skin and subcutaneous tissue exposing the underside. There was no exposed bone. The wound was irrigated and it was included in the dressing of the forefoot. Attention was then turned towards the sacrum. We prepped the area sterilely, addressed the necrotic tissue. This was about 4 cm x 3 cm x 3 cm deep sacral ulcer with fibrinous exudate and necrotic tissue extending on the left buttock. We lifted off the necrotic skin and subcutaneous tissue to expose the full ulcer. We did get into a pocket of thin purulent fluid at the 11 o'clock position. We debrided this and entered into the pocket, irrigated it and debrided additional necrotic skin and subcutaneous tissues while there is some muscle deep to all of this. The wound was then packed with wet-to-dry dressing followed by a paper tape. Attention was then turned towards the left ischial ulcer. This was unstageable pressure ulcer with leathery eschar. No cellulitis and we decided not to unroof this at this point. The patient tolerated the procedure well. We will continue to follow her with no change in her dressing recommendations which include Santyl dressing to the ulcers although we will add packing changes to the forehead. [id number]/[facility] #: [id number] MTDD
[2017-10-26] MEDS: FLUoxetine CAP* 20 MG PO SCH (08:35)
[2017-10-26] MEDS: Atorvastatin* 20 MG TAB PO SCH (08:35)
[2017-10-26] MEDS: Docusate CAP* 100 MG PO SCH ×2 (08:35→21:37)
[2017-10-26] MEDS: Atenolol TAB* 50 MG PO SCH (08:35)
[2017-10-26] MEDS: Aspirin EC TAB* 81 MG TAB.EC PO SCH (08:35)
[2017-10-26] MEDS: Insulin LISPRO* 1 UNITS UNIT SUBCUT SCH ×4 (08:36→21:36)
[2017-10-26] MEDS: Insulin NPH(*) 1 UNITS UNIT SUBCUT SCH ×2 (08:36→15:51)
--- NOTE | 2017-10-26 08:57 | PN ---
Progress Note - Progress Note Date of Service: 10/26/17 SOAP: Subjective: CC: decubitus ulcer HPI: 76 year old woman who had prolonged down time, developed right forehead abscess, decubitus ulcer, right calcaneous and ankle ulcer, had I&D of all and tolerated well. She denies pain, fever, rash, no diarrhea per RN. Objective: Vital Signs Temp 36.7 C 10/26/17 08:01 Pulse 60 10/26/17 08:01 Resp 17 10/26/17 08:01 BP 138/50 10/26/17 08:01 Pulse Ox 98 10/26/17 08:01 Intake & Output 10/25/17 10/26/17 10/26/17 18:59 06:59 18:59 Intake Total 690 100 Output Total 250 850 Balance 440 -750 Weight 175 lb 12.8 oz Intake: IV Fluids 60 100 Flagyl 100 NS (0.9%) 60 IVPB 150 ABX - CEFTRIAXONE 50 Flagyl 100 Oral 480 0 Output: Alvarado 250 850 Other: # Bowel Movements 0 Gen:awake no distress HEENT: no thrush; R forehead erythema, packing in wound Heart:RRR no murmur Lungs:CTA BL Abd:+BS NTND soft Skin: no rash MSK: R ankle and decub wrapped Laboratory Results - last 24 hr 10/25/17 10/25/17 10/25/17 11:33 16:32 21:01 WBC RBC Hgb Hct MCV MCH MCHC RDW Plt Count MPV Neut % (Auto) Lymph % (Auto) Morrill % (Auto) Eos % (Auto) Baso % (Auto) Absolute Neuts (auto) Absolute Lymphs (auto) Absolute Monos (auto) Absolute Eos (auto) Absolute Basos (auto) Absolute Nucleated RBC Nucleated RBC % Sodium Potassium Chloride Carbon Dioxide Anion Gap BUN Creatinine Est GFR ( Amer) Est GFR (Non-Af Amer) BUN/Creatinine Ratio Glucose POC Glucose (mg/dL) 286 H 343 H 300 H Calcium Magnesium 10/26/17 10/26/17 10/26/17 06:09 06:09 07:26 WBC 12.7 H RBC 3.67 L Hgb 10.5 L Hct 32 L MCV 87 MCH 29 MCHC 33 RDW 15 Plt Count 403 MPV 6.5 L Neut % (Auto) 82.6 Lymph % (Auto) 9.3 L Morrill % (Auto) 6.3 Eos % (Auto) 1.0 Baso % (Auto) 0.8 Absolute Neuts (auto) 10.5 H Absolute Lymphs (auto) 1.2 Absolute Monos (auto) 0.8 Absolute Eos (auto) 0.1 Absolute Basos (auto) 0.1 Absolute Nucleated RBC 0 Nucleated RBC % 0 Sodium 137 L Potassium 4.7 Chloride 112 H Carbon Dioxide 20 L Anion Gap 5 BUN 24 Creatinine 0.64 Est GFR ( Amer) 115.7 Est GFR (Non-Af Amer) 90.0 BUN/Creatinine Ratio 37.5 H Glucose 166 H POC Glucose (mg/dL) 188 H Calcium 7.6 L Magnesium 1.9 Assessment: 1. sacral decubitus ulcer with cellulitis and acute osteomyelitis 2. Right forehead abscess 3. PCN and sulfa allergy Plan: 1. continue ceftriaxone/flagyl, eventually keflex/flagyl, wound care per surgery Discussed with Dr Jerez
--- NOTE | 2017-10-26 09:52 | PN ---
Progress Note - Progress Note Date of Service: 10/26/17 SOAP: Subjective: Pt seen and case discussed with hospitalist. appreciate ID note Objective: af vss Micro reviewed Assessment: 1. face abscess 2.R foot ulcer- subacute pressure ulcer stage 4 3. diabetic R foot ulcer at 5th toe- possible osteo 4sacral ulcer-stage 4 5: l iscial ulcer unstageable Plan: packing change daily at face frequent turning collagenase to pressure and diabetic ulcers daily f/u at wound center
[2017-10-26] MEDS: Nystatin TOP POWDER* 15 GM BTL TOPICAL SCH ×2 (13:02→21:38)
[2017-10-26] MEDS: metroNIDAZOLE IV 500 MG/100ML* 500 MG/100 ML BAG IVPB SCH ×2 (13:02→21:41)
[2017-10-26] MEDS: Collagenase 250 MG/GM OINT* 30 GM TOPICAL SCH (13:02)
[2017-10-26] MEDS: cefTRIAXone(*) 1 GM in NS 0.9% 50 ML* 50 ML IVPB SCH (13:05)
--- NOTE | 2017-10-26 14:04 | DS ---
ADDENDUM NOW INCLUDED ON THIS REPORT DISCHARGE SUMMARY: DATE OF ADMISSION: 10/21/17 DATE OF DISCHARGE: 10/26/17 PRIMARY CARE PHYSICIAN: Beronica Suh NP. PRINCIPAL DISCHARGE DIAGNOSES: 1. Community Acquired pneumonia. 2. Forehead abscess. 3. Sacral decubitus ulcer. 4. Left hip wound. 5. Right ankle wound. 6. Family unable to care for. SECONDARY DISCHARGE DIAGNOSES: 1. Type 2 diabetes. 2. Hypertension. 3. Hyperlipidemia. 4. Depression/anxiety. DISCHARGE MEDICATIONS: 1. Aspirin 81 mg daily. 2. Simvastatin 40 mg daily. 3. Metformin 1000 mg b.i.d. 4. Atenolol 50 mg daily. 5. Dulcolax suppository 10 mg p.r. daily p.r.n. constipation. 6. Santyl 1 application topical daily to the left hip, the sacrum, and the right ankle. 7. Docusate 100 mg b.i.d. 8. MiraLAX 17 g daily. 9. NPH 70/30 of 15 units b.i.d. 10. Keflex 500 mg 4 times a day for 3 weeks. 11. Flagyl 500 mg p.o. t.i.d. for 3 weeks. HOSPITAL COURSE BY PROBLEM: 1. Unsafe living conditions. EMS found Ms. Cho in an unsafe living condition, so she was brought into the emergency room and found to have the following conditions. Based on her home situation she is being transferred to [facility]. 2. Pneumonia. She was initiated on levofloxacin at the time of admission. Strep pneumo and legionella urine antigens were negative. She received 5 days of antibiotics. 3. Right ankle wound, unstageable, left hip wound, sacral decubitus ulcer. Dr. Mendez was consulted and debrided the sacrum and the ankle. The ankle wound culture grew Providencia rettgeri, Bacteroides fragilis, and the sacral wound grew Bacteroides fragilis, Clostridium ramosum, and Streptococcus anginosis. Her blood cultures grew Clostridium sporogenes. Dr. Alba was consulted and recommended changing her antibiotics to ceftriaxone and Flagyl and at the time of discharge recommended changing her antibiotics to Keflex and Flagyl for 3 weeks, then he will see her in the office. In addition, Dr. Mendez will see her next week 11/03/17 to follow up the wounds. She is to have daily dressing changes to all 3 wounds with Santyl. 4. Forehead abscess. She was noted to have an abscess on the right side of her forehead which was I and D'd by Dr. Mendez. It grew MSSA. It is to be packed with 1 inch of packing daily. If this is unable to be done, it is okay to use A and D ointment daily. 5. Poorly controlled diabetes. Her insulin was changed while she was here to 70/30 of 15 units b.i.d. It is important that she has a.c./h.s. fingersticks with close monitoring of her blood sugar given this change in her insulin regimen as well as the recent infections. 6. Hypertension. HCTZ and lisinopril were held and her atenolol was cut into half and she was normotensive on this regimen. There may have been some polypharmacy contributing to her weakness. Her blood pressures should be continued to be monitored and if needed HCTZ and/or lisinopril can be added back. 7. Depression. She was continued on fluoxetine. 8. Disposition. She is being discharged to [facility] today. She is to follow up with Dr. Alba within 2 weeks. His office will call with an appointment and she has an appointment scheduled with Dr. Mendez on 11/03/17 at 9 :30 a.m. PHYSICAL EXAMINATION: At the time of discharge: Temperature 98.0, heart rate 60, respiratory rate 17, pulse ox 98% on room, and blood pressure 138/50. General: Elderly female in no distress. She is nontoxic and comfortable appearing. HEENT: Pupils are equal, round, and reactive to light. No nystagmus. Moist oral mucosa. Flaky skin. A 1 cm incision is packed in the right forehead. Neck: No JVP. No cervical adenopathy. Chest: Regular, rate, and rhythm. No murmurs. PMI nondisplaced. Lungs are clear bilaterally. Abdomen: Soft, nontender, and nondistended. No guarding. Extremities: Left hip eschar approximately 4 cm in diameter, 1+ lower extremity edema bilaterally and right ankle with a 5 cm ulcer with granulation tissue and 5 mm of surrounding erythema. Please feel free to contact me with any questions or concerns on Ms. Cho's admission or discharge. My phone number is [phone]. ADDENDUM: PRINCIPAL DISCHARGE DIAGNOSES: Severe protein calorie malnutrition. HOSPITAL COURSE: Severe protein calorie malnutrition. She was placed on a high - calorie diet with protein supplementation. [id number]/[facility] #: [id number] - [id number]/[facility] #: [id number] ARMANDO
[2017-10-26] MEDS ORDERED: metroNIDAZOLE TAB* 250 MG PO ONE (14:21)
[2017-10-26] MEDS ORDERED: Cephalexin CAP* 500 MG PO ONE (14:21)
--- NOTE | 2017-10-26 15:42 | DS ---
DISCHARGE SUMMARY: ADDENDUM: PRINCIPAL DISCHARGE DIAGNOSES: Severe protein calorie malnutrition. HOSPITAL COURSE: Severe protein calorie malnutrition. She was placed on a high - calorie diet with protein supplementation. [id number]/[facility] #: [id number] ARMANDO
[2017-10-26] MEDS: Senna TAB PO SCH (21:37)
[2017-10-27] MEDS: Heparin VIAL(*) 5000 UNITS/ML VIAL (FIVE THOUSAND) SUBCUT SCH (05:28)
[2017-10-27] MEDS: Omeprazole CAP* 20 MG PO SCH (05:30)
[2017-10-27] MEDS: Insulin NPH(*) 1 UNITS UNIT SUBCUT SCH (08:08)
[2017-10-27 08:17] VITALS: BP 144/40
[2017-10-27] MEDS: Insulin LISPRO* 1 UNITS UNIT SUBCUT SCH ×2 (09:56→12:25)
[2017-10-27] MEDS: Atenolol TAB* 50 MG PO SCH (09:57)
[2017-10-27] MEDS: FLUoxetine CAP* 20 MG PO SCH (09:58)
[2017-10-27] MEDS: Docusate CAP* 100 MG PO SCH (09:58)
[2017-10-27] MEDS: Atorvastatin* 20 MG TAB PO SCH (09:58)
[2017-10-27] MEDS: Nystatin TOP POWDER* 15 GM BTL TOPICAL SCH (09:58)
[2017-10-27] MEDS: Collagenase 250 MG/GM OINT* 30 GM TOPICAL SCH (09:58)
[2017-10-27] MEDS: Aspirin EC TAB* 81 MG TAB.EC PO SCH (09:58)
[2017-10-27] MEDS: metroNIDAZOLE IV 500 MG/100ML* 500 MG/100 ML BAG IVPB SCH (12:25)
--- NOTE | 2017-10-27 12:40 | DS ---
DISCHARGE SUMMARY: ADDENDUM: Addendum to discharge summary dictated by Dr. Jerez on 10/26/17. Please note that prior to the patient's discharge on 10/27/17, the patient was noted to have urinary retention. Her Alvarado catheter was discontinued on 10/26/17 and she continued to have postvoid residu als. Due to her generalized immobility and deconditioning, she is basically bedridden and she refuse s to use a bedpan. At this point, her postvoid residual was 350 mL and a urinary catheter is going t o be inserted once again. Recommendation is for her to continue trials of discontinuation of Alvarado catheter once the patient be comes more mobile at the shelter. The patient is going to be discharged to the shelter with Alvarado catheter in place due to urinary retention, I suspect due to immobility. For remaining details of the patient's discharge summary and medications, please refer to Dr. Jerez' s discharge summary dictated on 10/26/17. [id number]/[facility] #: [id number]
--- NOTE | 2017-10-28 02:03 | DS ---
DISCHARGE SUMMARY: ADDENDUM: Addendum to discharge summary dictated originally by Dr. Jerez on 10/26/17. Please note just before transfer to detention, the patient voided a large amount. Her postvoid re sidual was only 87 mL, not warranting a Alvarado catheter at this point. The patient is going to be dis charged to [facility] without a catheter in place. The recommendation is to monitor t he patient as needed for urinary retention. [id number]/[facility] #: [id number]
== END 2017-10-27 12:40 | DRG 570 ==
LOC: ED 23:07 → MED 10-21 02:18
PROVIDERS: ADMIT Hospitalist; ATTEND Internal Medicine
PROC: 0KBV0ZZ Excision of Right Foot Muscle, Open Approach (ICD-10-PCS; principal; 2017-10-25)
PROC: 0JBQ0ZZ Excision of Right Foot Subcutaneous Tissue and Fascia, Open Approach (ICD-10-PCS; 2017-10-25)
PROC: 0KBN0ZZ Excision of Right Hip Muscle, Open Approach (ICD-10-PCS; 2017-10-25)
PROC: 0H91XZZ Drainage of Face Skin, External Approach (ICD-10-PCS; 2017-10-25)
DX: L89.154 Pressure ulcer of sacral region, stage 4 (principal); J18.9 Pneumonia, unspecified organism; E43 Unspecified severe protein-calorie malnutrition; I69.354 Hemiplegia and hemiparesis following cerebral infarction affecting left non-dominant side; L02.01 Cutaneous abscess of face; M86.18 Other acute osteomyelitis, other site; L89.514 Pressure ulcer of right ankle, stage 4; E11.621 Type 2 diabetes mellitus with foot ulcer; L89.229 Pressure ulcer of left hip, unspecified stage; L89.309 Pressure ulcer of unspecified buttock, unspecified stage; E78.5 Hyperlipidemia, unspecified; F41.9 Anxiety disorder, unspecified; F32.9 Major depressive disorder, single episode, unspecified; E66.9 Obesity, unspecified; I95.9 Hypotension, unspecified; E87.6 Hypokalemia; E83.42 Hypomagnesemia; R00.1 Bradycardia, unspecified; R79.89 Other specified abnormal findings of blood chemistry; B95.61 Methicillin susceptible Staphylococcus aureus infection as the cause of diseases classified elsewhere; E11.69 Type 2 diabetes mellitus with other specified complication; L97.519 Non-pressure chronic ulcer of other part of right foot with unspecified severity; B95.4 Other streptococcus as the cause of diseases classified elsewhere; B96.6 Bacteroides fragilis [B. fragilis] as the cause of diseases classified elsewhere; B96.89 Other specified bacterial agents as the cause of diseases classified elsewhere; Z88.0 Allergy status to penicillin; Z79.82 Long term (current) use of aspirin; Z88.2 Allergy status to sulfonamides; Z98.42 Cataract extraction status, left eye; Z98.41 Cataract extraction status, right eye; Z80.1 Family history of malignant neoplasm of trachea, bronchus and lung; Z74.01 Bed confinement status; Z68.33 Body mass index [BMI] 33.0-33.9, adult
CPT/HCPCS: 36415; 70450; 71045; 80048; 80053; 81003; 81015; 82533; 82550; 82947; 83036; 83605; 83690; 83735; 83880; 84134; 84443; 84484; 85025; 85610; 85730; 86140; 87040; 87070; 87076; 87077; 87086; 87185; 87186; 87205; 87640; 87641; 87899; 93005; 93306; 99285; A9270-GY; G8978-GP-CM; G8979-GP-CK; G8987-GO-CN; G8988-GO-CJ; J0456; J0692; J0696; J1644; J3411; J3475; J3490

== ENCOUNTER 2018-09-07 16:31 | Inpatient (IN) | payer MEDICARE ==
--- NOTE | 2018-09-07 17:30 | ED ---
Skin Complaint - HPI Summary HPI Summary: The patient is a 77 y/o F presenting to [facility] arriving by ambulance from [facility] with a chief complaint of an erythematous, warm, and swollen rash on the left hip and thigh secondary to a known wound starting in the last day. The quarter-sized wound located on her left thigh is about two inches deep, per nurse. There is additionally spreading of erythema to the posterior and lateral left leg. She denies fever or pain related to the skin complaint. There are no aggravating or alleviating factors. She has hx of Type II DM. - History of Current Complaint Chief Complaint: EDRashSkinAbscess Stated Complaint: LEFT LEG RASH PER EMS Hx Obtained From: Patient Onset/Duration: Started Hours Ago, Still Present Skin Exposure Onset/Duration: Hours Ago Timing: Lasting Hours Onset Severity: Moderate Current Severity: Moderate Pain Intensity: 0 Pain Scale Used: 0-10 Numeric Skin Location: Leg - left hip and thigh, lateral and posterior left leg Character: Swelling, Redness Aggravating Symptom(s): Nothing Alleviating Symptom(s): Nothing Associated Signs & Symptoms: Rash - erythema and warmness on left leg - Additional Pertinent History Primary Care Physician: [id number] - Allergy/Home Medications Allergies/Adverse Reactions: Allergies Allergy/AdvReac Type Severity Reaction Status Date / Time Penicillins Allergy Anaphylatic Verified 10/21/17 00:22 Shock Sulfa (Sulfonamide Allergy Rash And Verified 10/21/17 00:22 Antibiotics) Itching Home Medications: Home Medications Acetaminophen TAB* [Tylenol TAB*] 325 mg PO Q4H PRN 09/07/18 [History Confirmed 09/07/18] Amino Acids/Protein Hydrolys [Liquacel 100 Liquid Packet] 15 ml PO BID 09/07/18 [History Confirmed 09/07/18] Insulin NPH Hum/Reg Insulin Hm [Novolin 70-30 Flexpen] 7 unit SUBCUT QPM [History Confirmed 09/07/18] Insulin NPH Hum/Reg Insulin Hm [Novolin 70-30 Flexpen] 10 unit SUBCUT QAM [History Confirmed 09/07/18] Mirtazapine TAB* [Remeron TAB*] 7.5 mg PO BEDTIME 09/07/18 [History Confirmed ] Ondansetron TAB* [Zofran 4 MG Tab*] 4 mg PO Q6H PRN 09/07/18 [History Confirmed 09/07/18] Sertraline* [Zoloft*] 25 mg PO BEDTIME 09/07/18 [History Confirmed 09/07/18] Simvastatin TAB(NF) [Zocor(NF)] 20 mg PO QPM 09/07/18 [History Confirmed ] amLODIPine TAB* [Norvasc 5 mg TAB*] 10 mg PO DAILY 09/07/18 [History Confirmed 09/07/18] traMADol TAB* [Ultram*] 50 mg PO TID PRN 09/07/18 [History Confirmed 09/07/18] PMH/Surg Hx/FS Hx/Imm Hx Endocrine/Hematology History: Reports: Hx Diabetes - DM II Denies: Hx Thyroid Disease, Hx Anemia Cardiovascular History: Reports: Hx Hypercholesterolemia, Hx Hypertension Denies: Hx Pacemaker/ICD GI History: Denies: Hx Jaundice Sensory History: Reports: Hx Cataracts - Removed, Hx Contacts or Glasses Denies: Hx Hearing Aid Opthamlomology History: Reports: Hx Cataracts - Removed, Hx Contacts or Glasses Neurological History: Reports: Other Neuro Impairments/Disorders - CVA, left sided weakness Denies: Hx Headaches Psychiatric History: Reports: Hx Depression Denies: Hx Panic Disorder - Surgical History Surgery Procedure, Year, and Place: BILAT CATARCTS - Immunization History Date of Tetanus Vaccine: unk Date of Influenza Vaccine: unk Infectious Disease History: No Infectious Disease History: Denies: Traveled Outside the [place] in Last 30 Days - Family History Known Family History: Positive: Other - Lung carcinoma - Social History Lives: Assisted Living Alcohol Use: None Hx Substance Use: No Substance Use Type: Reports: None Hx Tobacco Use: Yes Smoking Status (MU): Former Smoker Do You Chew or Dip Tobacco: No Review of Systems Negative: Fever Negative: Myalgia Positive: Other - erythema, warmness, and swelling near wound site on left hip and thigh, erythema on All Other Systems Reviewed And Are Negative: Yes Physical Exam - Summary Physical Exam Summary: VITAL SIGNS: Reviewed. GENERAL: Patient is a well-developed and nourished female who is lying comfortable in the stretcher. Patient is not in any acute respiratory distress. HEAD AND FACE: No signs of trauma. No ecchymosis, hematomas or skull depressions. No sinus tenderness. EYES: PERRLA, EOMI x 2, No injected conjunctiva, no nystagmus. EARS: Hearing grossly intact. Ear canals and tympanic membranes are within normal limits. MOUTH: Dry oral mucosa but oropharynx is otherwise within normal limits. NECK: Supple, trachea is midline, no adenopathy, no JVD, no carotid bruit, no c- spine tenderness, neck with full ROM. CHEST: Symmetric, no tenderness at palpation LUNGS: Clear to auscultation bilaterally. No wheezing or crackles. CVS: Regular rate and rhythm, S1 and S2 present, no murmurs or gallops appreciated. ABDOMEN: Soft, non-tender. No signs of distention. No rebound no guarding, and no masses palpated. Bowel sounds are normal. EXTREMITIES: FROM in all major joints, no edema, no cyanosis or clubbing. NEURO: Alert and oriented x 3. No acute neurological deficits. Speech is normal and follows commands. SKIN: Dry and warm, Pale, Wound on left hip with erythema and warmth from hip down to anterior aspect of thigh to knee, Increased tenting of skin Triage Information Reviewed: Yes Vital Signs On Initial Exam: Initial Vitals Temp Pulse Resp BP Pulse Ox 97.8 F 65 18 146/65 97 09/07/18 16:33 09/07/18 16:33 09/07/18 16:33 09/07/18 16:33 09/07/18 16:33 Vital Signs Reviewed: Yes Diagnostics - Vital Signs Vital Signs Temp Pulse Resp BP Pulse Ox 09/07/18 16:33 97.8 F 65 18 146/65 97 - Laboratory Result Diagrams: 09/07/18 17:45 09/07/18 17:45 Lab Statement: Any lab studies that have been ordered have been reviewed, and results considered in the medical decision making process. - EKG 1803 Cardiac Rate: NL - 64 BPM EKG Rhythm: Sinus Rhythm EKG Comparison: No Significant Change - Similar to EKG on 10/24/2017. Summary of EKG Findings: No ST elevations. Re-Evaluation - Re-Evaluation First Eval Re-Evaluation Time: 19:50 Change: Unchanged Comment: I spoke with the patient concerning admission based on current condition. Course/Dx - Course Assessment/Plan: The patient is a 77 y/o F presenting to [facility] arriving by ambulance from [facility] with a chief complaint of an erythematous, warm, and swollen rash on the left hip and thigh secondary to a known wound starting in the last day. The quarter-sized wound located on her left thigh is about two inches deep, per nurse. There is additionally spreading of erythema to the posterior and lateral left leg. She denies fever or pain related to the skin complaint. There are no aggravating or alleviating factors. She has hx of Type II DM. Blood work without any significant abnormality except for WBCs of 15.9, hemoglobin 8.3 hematocrit 27 and platelets 272. ESR is more than 120, potassium level was 5.4, BUN is 62 and creatinine 1.01. Glucose 178 lactic acid is 2.1, total bili is 1.20, AST is 212, AST is 268, alkaline phosphatase is 762 , CRP 191, and albumin of 2.8. In the ED course the patient was given IV fluids for dehydration, and she was started and vancomycin and metronidazole since the patient is allergic to penicillins. At this point I discussed my physical exam and findings with Dr. Horn from the hospitalist services who accepted the patient for admission. The patient is hemodynamically stable alert and oriented 3. - Diagnoses Provider Diagnoses: Cellulitis of hip, left, LFTs abnormal - Physician Notifications Discussed Care Of Patient With: Chase Tolentino - hospitalist Time Discussed With Above Provider: 18:15 Instructed by Provider To: Other - Dr. Tolentino was in the ED and came to visit the patient. He states that the patient will need antibiotics. I consulted with Dr. Horn, hospitalist, at 1955; she accepts the patient for admission. Discharge - Sign-Out/Discharge Documenting (check all that apply): Patient Departure - Patient will be admitted to [facility] for further care by Dr. Horn. Patient Received Moderate/Deep Sedation with Procedure: No - Discharge Plan Condition: Stable Disposition: ADMITTED TO [facility] - Billing Disposition and Condition Condition: STABLE Disposition: Admitted to [facility] - Attestation Statements Document Initiated by Scribe: Yes Documenting Scribe: Rosalind Carbajal Provider For Whom Scribe is Documenting (Include Credential): Dr. Kartik Sexton MD Scribe Attestation: Rosalind Riojas, scribed for Dr. Kartik Sexton MD on 09/07/18 at 213. Scribe Documentation Reviewed: Yes Provider Attestation: The documentation as recorded by the Rosalind colon accurately reflects the service I personally performed and the decisions made by me, Dr. Kartik Sexton MD Status of Tameka Document: Viewed
[2018-09-07] MEDS ORDERED: NS 0.9% 1000 ML** 1,000 ML IV ONE (17:53)
[2018-09-07] MEDS ORDERED: metroNIDAZOLE IV 500 MG/100ML* 500 MG/100 ML BAG IVPB ONE (17:56)
[2018-09-07] MEDS ORDERED: Vancomycin(*) 1,000 MG VIAL IVPB SCH (18:00)
[2018-09-07 18:15] LABS: Hematocrit 27 % (33-41); Hemoglobin 8.3 g/dL (12.0-16.0); Mean Corpuscular HGB Conc 31 g/dL (31-36); Mean Corpuscular Hemoglobin 24 pg (27-31); Mean Corpuscular Volume 77 fL (80-97); Mean Platelet Volume 6.4 fL (7.4-10.4); Platelet Count 372 10^3/uL (150-450); Red Blood Count 3.46 10^6 /uL (3.70-4.87); Red Cell Distribution Width 24 % (10.5-15); White Blood Count 15.9 10^3/uL (3.5-10.8)
[2018-09-07 18:19] LABS: ALT 268 U/L (7-52); AST 312 U/L (13-39); Albumin 2.8 g/dL (3.2-5.2); Albumin/Globulin Ratio 0.7 (1-3); Alkaline Phosphatase 762 U/L (34-104); BUN/Creatinine Ratio 61.4 (8-20); Blood Urea Nitrogen 62 mg/dL (6-24); C Reactive Protein 181.79 mg/L (<8.01); CO2 Carbon Dioxide 20 mmol/L (22-32); Calcium 8.9 mg/dL (8.6-10.3); Chloride 107 mmol/L (101-111); EGFR African American 64.1 (>60); Globulin 3.9 g/dL (2-4); Glucose 178 mg/dL (70-100); Sodium 137 mmol/L (135-145); Total Protein 6.7 g/dL (6.4-8.9)
[2018-09-07 18:25] LABS: Anion Gap 10 mmol/L (2-11); Potassium 5.4 mmol/L (3.5-5.0)
[2018-09-07] MEDS ORDERED: Vancomycin(*) 1,250 MG IV x ONCE IVPB ONE ×2 (18:30)
[2018-09-07 19:07] LABS: Polychromasia 1+
[2018-09-07 19:08] LABS: ABS Basophils 0 10^3/ul (0-0.2); ABS Eosinophils 0 10^3/ul (0-0.6); ABS Lymphocytes 0.9 10^3/ul (1.0-4.8); ABS Monocytes 0.7 10^3/ul (0-0.8); ABS Neutrophils 14.3 10^3/ul (1.5-7.7); ABS Nucleated RBC 0 10^3/ul; Eosinophil % 0.1 %; Lymphocyte % 5.6 %; Nucleated Red Blood Cells % 0
[2018-09-07] MEDS ORDERED: NS 0.9% 250 ML* 250 ML ONE (19:40)
[2018-09-07] MEDS ORDERED: Bisacodyl SUPP* 10 MG SUPP PR PRN (20:24)
[2018-09-07] MEDS ORDERED: Ondansetron TAB* 4 MG PO PRN (20:24)
[2018-09-07] MEDS ORDERED: Dextrose 50% Syringe 50 ML* 25 GM/50 ML SYRINGE IV PUSH PRN (20:33)
[2018-09-07 20:39] LABS: Erythrocyte Sed Rate > 120 mm/Hr (0-29)
[2018-09-07] MEDS ORDERED: metFORMIN* 1,000 MG TAB PO SCH (21:00)
[2018-09-07] MEDS ORDERED: Vancomycin(*) 0 MG in NS 0.9% 250 ML* 250 ML IVPB SCH (21:00)
[2018-09-07] MEDS ORDERED: Vancomycin per Pharmacy* NOTE FOLLOW UP PRN (21:03)
[2018-09-07 21:18] LABS: Total Iron Binding Capacity 179 mcg/dL (250-450); Transferrin 128 mg/dL (203-362)
[2018-09-07 21:24] LABS: % Iron Saturation 9 % (15-55); Iron < 17 ug/dL (50-212)
[2018-09-07 21:39] LABS: Ferritin 697.3 ng/mL (11-307)
--- NOTE | 2018-09-07 22:58 | HP ---
CC: [facility]* HISTORY AND PHYSICAL: DATE OF ADMISSION: 09/07/18 PRIMARY CARE PROVIDER: Debbi Horn DO, at [facility]. CHIEF COMPLAINT: Cellulitis of the left thigh. HISTORY OF PRESENT ILLNESS: Ms. Cho is a 77-year-old female, long-term resident of [facility], who was sent to the emergency room on 09/07/18 after it was noted that her left thigh was erythematous and warm to touch. The patient herself is unable to provide any history. She is able to tell me that the left thigh is not painful. 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 This has reportedly been improving over the last several months while at [facility]. She is seen by the wound doctor there and dressing changes are being performed. According to [facility] notes, the patient's leg was noted to be reddened and warm at approximately 11:30 on the day of admission. The on-call provider for [facility] was notified and the patient was sent to the emergency room for evaluation. PAST MEDICAL HISTORY: 1. Type 2 diabetes. 2. Hypertension. 3. Hyperlipidemia. 4. Depression. 5. Generalized deconditioning. PAST SURGICAL HISTORY: Unknown. MEDICATIONS: 1. Aspirin 81 mg p.o. daily. 2. Metformin 1000 mg p.o. twice daily. 3. Docusate 100 mg p.o. twice daily. 4. Atenolol 50 mg p.o. daily. 5. Dulcolax suppository 10 mg IA daily p.r.n. constipation. 6. Simvastatin 20 mg p.o. q.h.s. 7. Sertraline 25 mg p.o. q.h.s. 8. Amlodipine 10 mg p.o. daily. 9. Remeron 7.5 mg p.o. q.h.s. 10. LiquaCel 15 mL p.o. twice daily. 11. Zofran 4 mg p.o. q.6 hours p.r.n. nausea. 12. Tylenol 650 mg p.o. q.4 hours p.r.n. pain or fever. 13. Novolin 70/30 10 units subcutaneous q.a.m. and 7 units subcutaneous q.p.m. 14. Tramadol 50 mg p.o. 3 times daily. ALLERGIES: PENICILLIN and SULFA. SOCIAL HISTORY: The patient is a long-term resident at [facility]. She does not smoke; she does not drink alcohol. Her daughter is her healthcare proxy. REVIEW OF SYSTEMS: The patient denies any pain. She denies shortness of breath , abdominal pain, constipation, diarrhea. She denies chest pain. All other review of systems is negative. PHYSICAL EXAMINATION GENERAL: The patient is a well-developed, elderly female, seen lying flat in the stretcher, in no acute distress. VITAL SIGNS: Blood pressure 105/62, pulse 64, respirations 15, temp 97.8, O2 sat 98% on room air. HEENT: Pupils are equal. There is evidence of prior cataract extraction. Extraocular muscles are intact. Oropharynx is clear. Oral mucosa is moist. The patient has very poor dentition. There is no submandibular, cervical, or supraclavicular adenopathy. Thyroid is not enlarged. No thyroid nodules noted. There is a right EJ noted. PULMONARY: Lungs are clear to auscultation anteriorly and at the lateral bases. CARDIAC: Normal S1, S2. Regular rate and rhythm. I do not appreciate any murmurs. There is no lower extremity edema. ABDOMEN: Bowel sounds are present. Abdomen is soft, nontender, nondistended. MUSCULOSKELETAL: There is no cyanosis or clubbing of the digits. There is full active range of motion of all 4 extremities. NEUROLOGIC: Cranial nerves II through XII are grossly intact. Sensation is intact to light touch throughout. Strength is 5/5 and symmetric in the upper extremities. Lower extremity strength is 4 to 4+/5. SKIN: Warm and dry. There are no rashes. There is approximately half dollar size ulceration noted overlying the left lateral hip that probes approximately 2.5 cm per the ER provider. There is marked erythema spreading from above the level of the pressure ulcer down to below the knee laterally. There is also erythema noted to the medial aspect of the left thigh. PSYCH: The patient is alert. Affect appears appropriate. DIAGNOSTIC STUDIES/LAB DATA: WBC 15.9, hemoglobin 8.3, hematocrit 27, platelets 372. Sodium 137, potassium 5.4, chloride 107, CO2 of 20, BUN 62, creatinine 1.01, glucose 178, lactic acid 3.1, calcium 8.9, bilirubin 1.2. AST 312, ALT 268, alk phos 762, CRP 181.79, albumin 2.8. EKG reveals sinus rhythm without any acute ST-T wave abnormalities. ASSESSMENT AND PLAN: Ms. Cho is a 77-year-old female with history of type 2 diabetes, hypertension, hyperlipidemia, depression, who has a chronic likely stage IV pressure ulcer noted to the left lateral hip with now associated cellulitis. 1. Severe sepsis secondary to cellulitis of the left thigh. The patient meets sepsis criteria as evidenced by respiratory rate of 24 and a white blood cell count of 15,900. She is not hypotensive; however, she does have a lactic acid greater than 2 on initial read. The patient received 1 L of normal saline in the ER due to no hypotension. The patient will continue on normal saline at 100 mL/hour. Repeat lactic acid will be obtained 4 hours after the initial period. She is going to be treated with vancomycin, aztreonam given her penicillin allergy (which is anaphylactic shock) and Flagyl. We will monitor for clinical improvement as well as improvement in the white blood cell count and lactic acid. I am not obtaining any imaging at this time; however, consideration should be made for obtaining imaging of the right hip to be evaluated for possible underlying osteomyelitis. 2. Transaminitis. The patient has mildly elevated AST, ALT, and alk phos currently. In July 2018, her LFTs were slightly elevated, is unclear what is leading to this. A liver ultrasound has been ordered. Tylenol and simvastatin will be held. I am also holding the patient's tramadol given that it is metabolized by the liver. 3. Anemia. The patient is more anemic now than she has been in the past. Typically, her hemoglobin has been ranging in the 10 to 12 range. Currently, her hemoglobin is 8.3. I will obtain a stool guaiac. Additionally, iron and B12 studies will be added to her labs obtained in the ER. 4. Mildly elevated creatinine. The patient's creatinine is slightly elevated at 1.01 up from her baseline of 0.65. She is going to be receiving fluids. I suspect that elevated creatinine is likely related to some volume depletion. 5. Hypertension. The patient's blood pressure has been under good control. She had one MAP of 63; however, I suspect this is not an accurate reading, as all other MAPs have been greater than 70. 6. Hyperlipidemia. I am holding the patient's statin for now given her elevated LFTs. 7. Depression. I am going to continue sertraline and Remeron. 8. DVT prophylaxis. According to the Adult Thrombosis Prophylaxis Risk Factor Assessment Guide, the patient has a total risk factor score of 3, making her high risk. She will be placed on heparin 5000 units subcutaneous q.8 hours. 9. Code status is full. TIME SPENT: Sixty five minutes was spent admitting this patient. [id number]/[facility] #: [id number] ARMANDO
[2018-09-07] MEDS: Aztreonam (*) 1 GM in NS 0.9% 50 ML* 50 ML IVPB SCH (23:19)
[2018-09-07] MEDS: NS 0.9% 1000 ML** 1,000 ML IV SCH (23:20)
[2018-09-07] MEDS: metroNIDAZOLE * 500 MG TABLET PO SCH (23:24)
[2018-09-07] MEDS: Docusate CAP* 100 MG PO SCH (23:24)
[2018-09-07] MEDS: Mirtazapine TAB* 15 MG PO SCH (23:25)
[2018-09-07] MEDS: Sertraline* 25 MG TAB PO SCH (23:26)
[2018-09-07] MEDS: Insulin LISPRO* 1 UNITS UNIT SUBCUT SCH (23:26)
[2018-09-07] MEDS: Insulin GLARGINE(*) 1 UNITS UNIT SUBCUT SCH (23:27)
[2018-09-07] MEDS: Heparin VIAL(*) 5000 UNITS/ML VIAL (FIVE THOUSAND) SUBCUT SCH (23:29)
[2018-09-08] MEDS: Aztreonam (*) 1 GM in NS 0.9% 50 ML* 50 ML IVPB SCH ×2 (05:34→13:43)
[2018-09-08] MEDS: metroNIDAZOLE * 500 MG TABLET PO SCH ×3 (05:34→21:53)
[2018-09-08] MEDS: Heparin VIAL(*) 5000 UNITS/ML VIAL (FIVE THOUSAND) SUBCUT SCH ×3 (05:34→21:54)
[2018-09-08] MEDS: Vancomycin(*) 1,000 MG in NS 0.9% 250 ML* 250 ML IVPB SCH ×2 (07:31→19:56)
[2018-09-08 08:06] LABS: ABS Basophils 0 10^3/ul (0-0.2); ABS Eosinophils 0 10^3/ul (0-0.6); ABS Lymphocytes 0.9 10^3/ul (1.0-4.8); ABS Monocytes 0.6 10^3/ul (0-0.8); ABS Neutrophils 10.2 10^3/ul (1.5-7.7); ABS Nucleated RBC 0 10^3/ul; Eosinophil % 0.3 %; Hematocrit 25 % (33-41); Lymphocyte % 7.5 %; Mean Corpuscular HGB Conc 32 g/dL (31-36); Mean Corpuscular Hemoglobin 24 pg (27-31); Mean Corpuscular Volume 77 fL (80-97); Mean Platelet Volume 6.6 fL (7.4-10.4); Nucleated Red Blood Cells % 0; Platelet Count 361 10^3/uL (150-450); Red Blood Count 3.29 10^6 /uL (3.70-4.87); Red Cell Distribution Width 24 % (10.5-15); White Blood Count 11.8 10^3/uL (3.5-10.8)
--- NOTE | 2018-09-08 08:33 | PN ---
Subjective Date of Service: 09/08/18 Interval History: No acute events overnight. Afebrile. Lactic acidosis resolved. Normotensive. Denies chest pain, SOB, f/c/n/v/d/c. Some pain in "spine" when head of bead elevated. Denies leg pain. States she walks with walker. Objective Active Medications: Amlodipine Besylate (Norvasc Tab*) 10 mg PO DAILY [facility] Aspirin (Aspirin Ec Tab*) 81 mg PO DAILY [facility] Atenolol (Tenormin Tab*) 50 mg PO DAILY [facility] Bisacodyl (Dulcolax Supp*) 10 mg [place] DAILY PRN PRN Reason: CONSTIPATION Dextrose (D50w Syringe 50 Ml*) 12.5 gm IV PUSH .FOR FS < 60 - SS PRN PRN Reason: FS < 60 Docusate Sodium (Colace Cap*) 100 mg PO BID [facility] Last Admin: 09/07/18 23:24 Dose: 100 mg Heparin Sodium (Porcine) (Heparin Vial(*)) 5,000 units SUBCUT Q8HR [facility] Last Admin: 09/08/18 05:34 Dose: 5,000 units Aztreonam 1 gm/ Sodium (Chloride) 50 mls @ 200 mls/hr IVPB Q8H [facility] Last Admin: 09/08/18 05:34 Dose: 200 mls/hr Sodium Chloride (Ns 0.9% 1000 Ml) 1,000 mls @ 100 mls/hr IV PER RATE [facility] Last Admin: 09/07/18 23:20 Dose: 100 mls/hr Vancomycin HCl 1,000 mg/ (Sodium Chloride) 250 mls @ 166.667 mls/hr IVPB Q12H [facility] Last Admin: 09/08/18 07:31 Dose: 166.667 mls/hr Insulin Glargine (Lantus(*)) 5 units SUBCUT Q24H [facility] Last Admin: 09/07/18 23:27 Dose: 5 units Insulin Human Lispro (Humalog*) 0 units SUBCUT ACHS [facility]; Protocol Last Admin: 09/07/18 23:26 Dose: 3 units Metronidazole (Flagyl) 500 mg PO Q8H [facility] Last Admin: 09/08/18 05:34 Dose: 500 mg Mirtazapine (Remeron Tab*) 7.5 mg PO BEDTIME [facility] Last Admin: 09/07/18 23:25 Dose: 7.5 mg Ondansetron HCl (Zofran Tab*) 4 mg PO Q6H PRN PRN Reason: NAUSEA/VOMITING Pharmacy Consult (Vancomycin Per Pharmacy*) 1 note FOLLOW UP . PRN PRN Reason: PER PROTOCOL Pharmacy Profile Note (Vancomycin Trough Check) 1 note FOLLOW UP 07 ONE Stop: 09/09/18 07:31 Sertraline HCl (Zoloft*) 25 mg PO BEDTIME [facility] Last Admin: 09/07/18 23:26 Dose: 25 mg Vital Signs - 8 hr 09/08/18 03:23 Temperature 98.0 F Pulse Rate 62 Respiratory 18 Rate Blood Pressure 139/44 (mmHg) O2 Sat by Pulse 99 Oximetry Oxygen Devices in Use Now: None Appearance: NAD Eyes: No Scleral Icterus Respiratory: Symmetrical Chest Expansion and Respiratory Effort, Clear to Auscultation - anteriorly. Cardiovascular: NL Sounds; No Murmurs; No JVD, RRR Abdominal: NL Sounds; No Tenderness; No Distention, No Hepatosplenomegaly Extremities: No Edema, - - left thigh erythema and slight warmth (from lateral wrapping behind to medial, anterior spared. Freshly placed dressin without strikethru. Reported sacral decub to with visible bone. Skin: - - erythema as above Neurological: NL Sensation, NL Muscle Strength and Tone, - - Oriented to name. Knows in hospital but not why. Does not know year. Nutrition: Taking PO's Result Diagrams: 09/08/18 07:25 09/07/18 17:45 Additional Lab and Data: Laboratory Results - last 24 hr 09/07/18 09/07/18 09/07/18 17:45 17:45 17:45 WBC 15.9 H RBC 3.46 L Hgb 8.3 L Hct 27 L MCV 77 L MCH 24 L MCHC 31 RDW 24 H Plt Count 372 MPV 6.4 L Neut % (Auto) 90.0 Lymph % (Auto) 5.6 Cataño % (Auto) 4.2 Eos % (Auto) 0.1 Baso % (Auto) 0.1 Absolute Neuts (auto) 14.3 H Absolute Lymphs (auto) 0.9 L Absolute Monos (auto) 0.7 Absolute Eos (auto) 0 Absolute Basos (auto) 0 Absolute Nucleated RBC 0 Nucleated RBC % 0 Polychromasia 1+ Anisocytosis 2+ ESR > 120 H Sodium 137 Potassium 5.4 H Chloride 107 Carbon Dioxide 20 L Anion Gap 10 BUN 62 H Creatinine 1.01 H Est GFR ( Amer) 64.1 Est GFR (Non-Af Amer) 53.0 BUN/Creatinine Ratio 61.4 H Glucose 178 H POC Glucose (mg/dL) Lactic Acid 3.1 H* Calcium 8.9 Iron < 17 L TIBC 179 L % Saturation 9 L Unsat Iron Binding < 164 Transferrin 128 L Ferritin 697.3 H Total Bilirubin 1.20 H AST 312 H ALT 268 H Alkaline Phosphatase 762 H C-Reactive Protein 181.79 H Total Protein 6.7 Albumin 2.8 L Globulin 3.9 Albumin/Globulin Ratio 0.7 L Vitamin B12 623 09/07/18 09/07/18 09/08/18 23:03 23:18 07:21 WBC RBC Hgb Hct MCV MCH MCHC RDW Plt Count MPV Neut % (Auto) Lymph % (Auto) Cataño % (Auto) Eos % (Auto) Baso % (Auto) Absolute Neuts (auto) Absolute Lymphs (auto) Absolute Monos (auto) Absolute Eos (auto) Absolute Basos (auto) Absolute Nucleated RBC Nucleated RBC % Polychromasia Anisocytosis ESR Sodium Potassium Chloride Carbon Dioxide Anion Gap BUN Creatinine Est GFR ( Amer) Est GFR (Non-Af Amer) BUN/Creatinine Ratio Glucose POC Glucose (mg/dL) 170 H 140 H Lactic Acid 1.8 Calcium Iron TIBC % Saturation Unsat Iron Binding Transferrin Ferritin Total Bilirubin AST ALT Alkaline Phosphatase C-Reactive Protein Total Protein Albumin Globulin Albumin/Globulin Ratio Vitamin B12 09/08/18 07:25 WBC 11.8 H RBC 3.29 L Hgb 8.0 L Hct 25 L MCV 77 L MCH 24 L MCHC 32 RDW 24 H Plt Count 361 MPV 6.6 L Neut % (Auto) 86.6 Lymph % (Auto) 7.5 Cataño % (Auto) 5.4 Eos % (Auto) 0.3 Baso % (Auto) 0.2 Absolute Neuts (auto) 10.2 H Absolute Lymphs (auto) 0.9 L Absolute Monos (auto) 0.6 Absolute Eos (auto) 0 Absolute Basos (auto) 0 Absolute Nucleated RBC 0 Nucleated RBC % 0 Polychromasia Anisocytosis ESR Sodium Potassium Chloride Carbon Dioxide Anion Gap BUN Creatinine Est GFR ( Amer) Est GFR (Non-Af Amer) BUN/Creatinine Ratio Glucose POC Glucose (mg/dL) Lactic Acid Calcium Iron TIBC % Saturation Unsat Iron Binding Transferrin Ferritin Total Bilirubin AST ALT Alkaline Phosphatase C-Reactive Protein Total Protein Albumin Globulin Albumin/Globulin Ratio Vitamin B12 Microbiology and Other Data: Microbiology 09/07/18 17:52 Nasal Nasal Screen MRSA (PCR) - Final Mrsa Detected 09/07/18 17:52 Hip Left Gram Stain - Final Assess/Plan/Problems-Billing Assessment: 77 yo female PMH IDDM, HTN, HLD, depression, chronic sacral pressure ulcer and stage IV left thigh ulceration (receiving wound care at [facility]) p/w with erythema to left thigh. ESR>120, CRP 181, Leukocytosis 15.9. Lactic Acidosis 3.1 (meeting sever sepsis criteria given brief tachynpnea). Transaminitis. PCN allergy on vanc, aztreonam and flagyl. - Patient Problems (1) Sepsis Current Visit: No Status: Acute Comment: Severe given lactic acidosis 3.1 ( now resolved) present on admission per SIRs criteria (leukocytosis, tachypnea), improving likely due multiple pressure ulcers/cellulitis ID consult when available. continue vancomycin, flagyl, aztreonam. f/u wound culture from left hip dressing changes (obtain specifics from [facility]) (2) Pressure ulcer Current Visit: No Status: Acute Code(s): L89.90 - PRESSURE ULCER OF UNSPECIFIED SITE, UNSPECIFIED STAGE SNOMED Code(s): 923740534 Comment: reposition Q2 hours plan as above (3) NEYMAR (acute kidney injury) Current Visit: Yes Status: Acute Code(s): N17.9 - ACUTE KIDNEY FAILURE, UNSPECIFIED SNOMED Code(s): 14620793 Comment: [employer] 1.0 from 0.6 baseline. IVF gentle. in setting of sepsis. f/u repeat BMP (4) Transaminitis Current Visit: Yes Status: Acute Code(s): R74.0 - NONSPEC ELEV OF LEVELS OF TRANSAMNS & LACTIC ACID DEHYDRGNSE SNOMED Code(s): 308848225 Comment: f/u liver US and the repeat CMP. no abdominal pain or jaundice. (5) Diabetes mellitus type 2 Current Visit: No Status: Active Priority: Low Code(s): E11.9 - TYPE 2 DIABETES MELLITUS WITHOUT COMPLICATIONS SNOMED Code(s): 66040823 Comment: lantus 10U , SSI. POC glucose qachs controlled. <170s was on 10U am, 7U PM of 70/30. (6) Anemia of chronic disease Current Visit: Yes Status: Acute Code(s): D63.8 - ANEMIA IN OTHER CHRONIC DISEASES CLASSIFIED ELSEWHERE SNOMED Code(s): 389788868 Comment: ferritin 697 elevated. Iron Sat 9, Iron <17 hgb 8.0 (7) Essential hypertension Current Visit: No Status: Active Priority: Low Code(s): I10 - ESSENTIAL ( PRIMARY) HYPERTENSION SNOMED Code(s): 67325642 Comment: normotensive. will continue home atenolol but hold home amlodipine 10mg in setting of sepsis. (8) Full code status Current Visit: No Status: Acute Code(s): Z78.9 - OTHER SPECIFIED HEALTH STATUS SNOMED Code(s): 835990604 Status and Disposition: medicine inpatient.
[2018-09-08 08:56] LABS: Albumin 2.5 g/dL (3.2-5.2); Albumin/Globulin Ratio 0.7 (1-3); BUN/Creatinine Ratio 61.1 (8-20); Calcium 8.2 mg/dL (8.6-10.3); EGFR African American 73.3 (>60); EGFR Non-African American 60.6 (>60); Globulin 3.7 g/dL (2-4); Potassium 4.6 mmol/L (3.5-5.0); Total Bilirubin 1.1 mg/dL (0.2-1.0); Total Protein 6.2 g/dL (6.4-8.9)
[2018-09-08] MEDS ORDERED: amLODIPine TAB* 5 MG PO SCH (09:00)
[2018-09-08] MEDS: Insulin LISPRO* 1 UNITS UNIT SUBCUT SCH ×4 (09:39→21:53)
[2018-09-08] MEDS: Aspirin EC TAB* 81 MG TAB.EC PO SCH (09:39)
[2018-09-08] MEDS: Atenolol TAB* 50 MG PO SCH (09:39)
[2018-09-08] MEDS: Docusate CAP* 100 MG PO SCH ×2 (09:40→21:48)
[2018-09-08] MEDS: NS 0.9% 1000 ML** 1,000 ML IV SCH (13:43)
[2018-09-08] MEDS ORDERED: Atorvastatin* 10 MG TAB PO SCH (18:00)
[2018-09-08] MEDS: Mirtazapine TAB* 15 MG PO SCH (21:49)
[2018-09-08] MEDS: Sertraline* 25 MG TAB PO SCH (21:49)
[2018-09-08] MEDS: Insulin GLARGINE(*) 1 UNITS UNIT SUBCUT SCH (21:54)
[2018-09-09] MEDS: Aztreonam (*) 1 GM in NS 0.9% 50 ML* 50 ML IVPB SCH ×3 (00:46→16:36)
[2018-09-09] MEDS: NS 0.9% 1000 ML** 1,000 ML IV SCH (06:00)
[2018-09-09] MEDS: Heparin VIAL(*) 5000 UNITS/ML VIAL (FIVE THOUSAND) SUBCUT SCH ×3 (06:01→22:17)
[2018-09-09] MEDS: metroNIDAZOLE * 500 MG TABLET PO SCH ×3 (06:01→22:00)
--- NOTE | 2018-09-09 07:01 | PN ---
Hospitalist Progress Note Date of Service: 09/09/18 Paged to bedside for evaluation of pt EJ, concern from overnight staff it was infiltrated, still flushes patent, patient has very large neck and no clear infiltration at site of EJ, she now has L AC, I advise using L AC for infusion and keeping R EJ for day nurse to evaluate.
[2018-09-09] MEDS ORDERED: Vancomycin Trough Check NOTE FOLLOW UP ONE (07:30)
[2018-09-09] MEDS: Atenolol TAB* 50 MG PO SCH (07:44)
[2018-09-09] MEDS: Docusate CAP* 100 MG PO SCH ×2 (07:44→22:00)
[2018-09-09] MEDS: Aspirin EC TAB* 81 MG TAB.EC PO SCH (07:44)
[2018-09-09] MEDS: Insulin LISPRO* 1 UNITS UNIT SUBCUT SCH ×4 (07:45→22:17)
[2018-09-09] MEDS: Vancomycin(*) 1,000 MG in NS 0.9% 250 ML* 250 ML IVPB SCH (08:15)
--- NOTE | 2018-09-09 16:28 | PN ---
Subjective Date of Service: 09/09/18 Interval History: Patient has no new complaints. She is sleeping now. Has been turned and positioned every 2 hours. Family History: Unchanged from Admission Social History: Unchanged from Admission Past Medical History: Unchanged from Admission Objective Active Medications: Aspirin (Aspirin Ec Tab*) 81 mg PO DAILY [facility] Last Admin: 09/09/18 07:44 Dose: 81 mg Atenolol (Tenormin Tab*) 50 mg PO DAILY [facility] Last Admin: 09/09/18 07:44 Dose: 50 mg Bisacodyl (Dulcolax Supp*) 10 mg [place] DAILY PRN PRN Reason: CONSTIPATION Dextrose (D50w Syringe 50 Ml*) 12.5 gm IV PUSH .FOR FS < 60 - SS PRN PRN Reason: FS < 60 Docusate Sodium (Colace Cap*) 100 mg PO BID [facility] Last Admin: 09/09/18 07:44 Dose: 100 mg Heparin Sodium (Porcine) (Heparin Vial(*)) 5,000 units SUBCUT Q8HR [facility] Last Admin: 09/09/18 12:48 Dose: 5,000 units Sodium Chloride (Ns 0.9% 1000 Ml) 1,000 mls @ 100 mls/hr IV PER RATE [facility] Last Admin: 09/09/18 06:00 Dose: 100 mls/hr Aztreonam 1 gm/ Sodium (Chloride) 50 mls @ 200 mls/hr IVPB Q8H [facility] Last Admin: 09/09/18 07:44 Dose: 200 mls/hr Vancomycin HCl 750 mg/ Sodium (Chloride) 250 mls @ 166.667 mls/hr IVPB 0900, 2100 [facility] Insulin Glargine (Lantus(*)) 5 units SUBCUT Q24H [facility] Last Admin: 09/08/18 21:54 Dose: 5 units Insulin Human Lispro (Humalog*) 0 units SUBCUT ACHS [facility]; Protocol Last Admin: 09/09/18 11:35 Dose: Not Given Metronidazole (Flagyl) 500 mg PO Q8H [facility] Last Admin: 09/09/18 12:48 Dose: 500 mg Mirtazapine (Remeron Tab*) 7.5 mg PO BEDTIME [facility] Last Admin: 09/08/18 21:49 Dose: 7.5 mg Ondansetron HCl (Zofran Tab*) 4 mg PO Q6H PRN PRN Reason: NAUSEA/VOMITING Sertraline HCl (Zoloft*) 25 mg PO BEDTIME [facility] Last Admin: 09/08/18 21:49 Dose: 25 mg Vital Signs - 8 hr 09/09/18 09/09/18 11:39 15:26 Temperature 36.2 C 36.8 C Pulse Rate 58 62 Respiratory 16 16 Rate Blood Pressure 126/32 144/58 (mmHg) O2 Sat by Pulse 98 99 Oximetry Oxygen Devices in Use Now: None Appearance: sleeping, aroused to light touch Ears/Nose/Mouth/Throat: NL Teeth, Lips, Gums Neck: NL Appearance and Movements; NL JVP Respiratory: Clear to Auscultation Cardiovascular: NL Sounds; No Murmurs; No JVD Abdominal: NL Sounds; No Tenderness; No Distention Skin: - - wound dressing in place LT hip Neurological: Alert and Oriented x 3 Lines/Tubes/Other Access: Clean, Dry and Intact Peripheral IV Result Diagrams: 09/08/18 07:25 09/08/18 07:25 Additional Lab and Data: Laboratory Tests 09/08/18 09/09/18 17:23 07:41 POC Glucose (mg/dL) 167 H 110 H Microbiology and Other Data: Microbiology 09/07/18 17:52 Nasal Nasal Screen MRSA (PCR) - Final Mrsa Detected 09/07/18 18:23 Blood Venous Aerobic Blood Culture - Preliminary 09/07/18 18:23 Blood Venous Anaerobic Blood Culture - Preliminary No Growth Day 1 No Growth Day 1 09/07/18 17:45 Blood Venous Aerobic Blood Culture - Preliminary 09/07/18 17:45 Blood Venous Anaerobic Blood Culture - Preliminary No Growth Day 1 No Growth Day 1 Assess/Plan/Problems-Billing Assessment: 77 yo female PMH IDDM, HTN, HLD, depression, chronic sacral pressure ulcer and stage IV left thigh ulceration (receiving wound care at [facility]) p/w with erythema to left thigh. ESR>120, CRP 181, Leukocytosis 15.9. Lactic Acidosis 3.1 (meeting severe sepsis criteria given brief tachynpnea). Transaminitis. PCN allergy on vanco, aztreonam. - Patient Problems (1) Sepsis Current Visit: No Status: Acute Comment: -Source appears to be pressure ulcers/cellulitis -ID consult when available. -Wound Cultures growing MRSA, polymicrobial infection -Continue Vanco, aztreonam (2) Diabetes mellitus type 2 Current Visit: No Status: Active Priority: Medium Code(s): E11.9 - TYPE 2 DIABETES MELLITUS WITHOUT COMPLICATIONS SNOMED Code(s): 77215571 Comment: -lantus 10U , SSI. -POC glucose in good range (3) Essential hypertension Current Visit: No Status: Active Priority: Medium Code(s): I10 - ESSENTIAL (PRIMARY) HYPERTENSION SNOMED Code(s): 02987922 Comment: -normotensive -continue home atenolol - amlodipine 10mg on hold in setting of sepsis. (4) DVT prophylaxis Current Visit: No Status: Acute Priority: Low Code(s): ILZ9273 - SNOMED Code(s): 772656911 Comment: heparin subQ Status and Disposition: medicine inpatient.
[2018-09-09] MEDS: Vancomycin(*) 750 MG in NS 0.9% 250 ML* 250 ML IVPB SCH (21:55)
[2018-09-09] MEDS: Mirtazapine TAB* 15 MG PO SCH (22:00)
[2018-09-09] MEDS: Sertraline* 25 MG TAB PO SCH (22:00)
[2018-09-09] MEDS: Insulin GLARGINE(*) 1 UNITS UNIT SUBCUT SCH (22:18)
[2018-09-10] MEDS: Aztreonam (*) 1 GM in NS 0.9% 50 ML* 50 ML IVPB SCH ×3 (00:25→17:26)
[2018-09-10] MEDS: Heparin VIAL(*) 5000 UNITS/ML VIAL (FIVE THOUSAND) SUBCUT SCH ×3 (04:49→20:46)
[2018-09-10] MEDS: metroNIDAZOLE * 500 MG TABLET PO SCH ×3 (04:49→20:47)
[2018-09-10 06:52] LABS: ABS Basophils 0 10^3/ul (0-0.2); ABS Eosinophils 0.1 10^3/ul (0-0.6); ABS Lymphocytes 1.1 10^3/ul (1.0-4.8); ABS Monocytes 0.7 10^3/ul (0-0.8); ABS Neutrophils 6.3 10^3/ul (1.5-7.7); ABS Nucleated RBC 0 10^3/ul; Eosinophil % 1.5 %; Hematocrit 25 % (33-41); Hemoglobin 7.9 g/dL (12.0-16.0); Lymphocyte % 13.3 %; Mean Corpuscular HGB Conc 32 g/dL (31-36); Mean Corpuscular Hemoglobin 24 pg (27-31); Mean Corpuscular Volume 76 fL (80-97); Mean Platelet Volume 6.9 fL (7.4-10.4); Nucleated Red Blood Cells % 0.1; Platelet Count 372 10^3/uL (150-450); Red Blood Count 3.27 10^6 /uL (3.70-4.87); Red Cell Distribution Width 25 % (10.5-15); White Blood Count 8.3 10^3/uL (3.5-10.8)
[2018-09-10] MEDS: NS 0.9% 1000 ML** 1,000 ML IV SCH (07:00)
[2018-09-10 07:02] LABS: BUN/Creatinine Ratio 55.3 (8-20); Calcium 7.4 mg/dL (8.6-10.3); EGFR African American 89.1 (>60); EGFR Non-African American 73.6 (>60); Potassium 3.5 mmol/L (3.5-5.0)
[2018-09-10] MEDS: Insulin LISPRO* 1 UNITS UNIT SUBCUT SCH ×4 (09:21→21:20)
[2018-09-10] MEDS: Atenolol TAB* 50 MG PO SCH (09:48)
[2018-09-10] MEDS: Aspirin EC TAB* 81 MG TAB.EC PO SCH (09:49)
[2018-09-10] MEDS: Docusate CAP* 100 MG PO SCH ×2 (09:49→20:47)
[2018-09-10] MEDS: Vancomycin(*) 750 MG in NS 0.9% 250 ML* 250 ML IVPB SCH ×2 (10:41→20:46)
--- NOTE | 2018-09-10 18:22 | PN ---
Subjective Date of Service: 09/10/18 Interval History: Patient denies any pain. She is having dressing changes daily per protocol from [facility]. She has minimal appetite. Family History: Unchanged from Admission Social History: Unchanged from Admission Past Medical History: Unchanged from Admission Objective Active Medications: Aspirin (Aspirin Ec Tab*) 81 mg PO DAILY [facility] Last Admin: 09/10/18 09:49 Dose: 81 mg Atenolol (Tenormin Tab*) 50 mg PO DAILY [facility] Last Admin: 09/10/18 09:48 Dose: 50 mg Bisacodyl (Dulcolax Supp*) 10 mg [place] DAILY PRN PRN Reason: CONSTIPATION Last Admin: 09/09/18 16:45 Dose: 10 mg Dextrose (D50w Syringe 50 Ml*) 12.5 gm IV PUSH .FOR FS < 60 - SS PRN PRN Reason: FS < 60 Docusate Sodium (Colace Cap*) 100 mg PO BID [facility] Last Admin: 09/10/18 09:49 Dose: 100 mg Heparin Sodium (Porcine) (Heparin Vial(*)) 5,000 units SUBCUT Q8HR [facility] Last Admin: 09/10/18 14:44 Dose: 5,000 units Sodium Chloride (Ns 0.9% 1000 Ml) 1,000 mls @ 100 mls/hr IV PER RATE [facility] Last Admin: 09/10/18 07:00 Dose: 100 mls/hr Aztreonam 1 gm/ Sodium (Chloride) 50 mls @ 200 mls/hr IVPB Q8H [facility] Last Admin: 09/10/18 17:26 Dose: 200 mls/hr Vancomycin HCl 750 mg/ Sodium (Chloride) 250 mls @ 166.667 mls/hr IVPB 0900, 2100 [facility] Last Admin: 09/10/18 10:41 Dose: 166.667 mls/hr Insulin Glargine (Lantus(*)) 5 units SUBCUT Q24H [facility] Last Admin: 09/09/18 22:18 Dose: 5 units Insulin Human Lispro (Humalog*) 0 units SUBCUT ACHS [facility]; Protocol Last Admin: 09/10/18 17:26 Dose: 9 units Metronidazole (Flagyl) 500 mg PO Q8H [facility] Last Admin: 09/10/18 13:10 Dose: 500 mg Mirtazapine (Remeron Tab*) 7.5 mg PO BEDTIME [facility] Last Admin: 09/09/18 22:00 Dose: 7.5 mg Ondansetron HCl (Zofran Tab*) 4 mg PO Q6H PRN PRN Reason: NAUSEA/VOMITING Sertraline HCl (Zoloft*) 25 mg PO BEDTIME [facility] Last Admin: 09/09/18 22:00 Dose: 25 mg Vital Signs - 8 hr 09/10/18 09/10/18 11:14 15:15 Temperature 36.7 C 36.9 C Pulse Rate 60 61 Respiratory 18 16 Rate Blood Pressure 127/44 133/42 (mmHg) O2 Sat by Pulse 99 100 Oximetry Oxygen Devices in Use Now: None Appearance: alert, no distress Ears/Nose/Mouth/Throat: Clear Oropharnyx Neck: NL Appearance and Movements; NL JVP Respiratory: Symmetrical Chest Expansion and Respiratory Effort, Clear to Auscultation Cardiovascular: NL Sounds; No Murmurs; No JVD Abdominal: NL Sounds; No Tenderness; No Distention Skin: - - wound LT hip in bandage, erythema surrounding bandage is resolved Nutrition: Taking PO's Result Diagrams: 09/10/18 06:05 09/10/18 06:05 Additional Lab and Data: Laboratory Tests 09/09/18 09/10/18 09/10/18 07:14 06:05 08:13 Glucose 105 H POC Glucose (mg/dL) 113 H Vancomycin Trough 23.2 09/10/18 09/10/18 11:55 17:03 Glucose POC Glucose (mg/dL) 192 H 300 H Vancomycin Trough Microbiology and Other Data: Microbiology 09/07/18 17:52 Nasal Nasal Screen MRSA (PCR) - Final Mrsa Detected 09/07/18 17:52 Hip Left Skin and Soft Tissue MRSA/MSSA (PCR - Final 09/07/18 17:52 Hip Left Wound Culture - Final Mrsa Positive S.aureus Positive MRSA Pseudomonas Aeruginosa Acinetobacter Baumannii Complx 09/07/18 18:23 Blood Venous Aerobic Blood Culture - Preliminary 09/07/18 18:23 Blood Venous Anaerobic Blood Culture - Preliminary No Growth Day 2 No Growth Day 2 09/07/18 17:45 Blood Venous Aerobic Blood Culture - Preliminary 09/07/18 17:45 Blood Venous Anaerobic Blood Culture - Preliminary No Growth Day 3 No Growth Day 3 Assess/Plan/Problems-Billing Assessment: 77 yo female PMH IDDM, HTN, HLD, depression, chronic sacral pressure ulcer and stage IV left thigh ulceration (receiving wound care at [facility]) p/w with erythema to left thigh. ESR>120, CRP 181, Leukocytosis 15.9. Lactic Acidosis 3.1 (meeting severe sepsis criteria given brief tachynpnea). Transaminitis. PCN allergy on vanco, aztreonam. - Patient Problems (1) Sepsis Current Visit: Yes Status: Acute Priority: High Comment: -Source appears to be pressure ulcers/cellulitis -Sepsis resolved, cellulitis resolved, stage 4 ulcer remains -Wound Cultures growing MRSA, pseudomonas, and acinetobacter -Continue Vanco, aztreonam -Consider discharge home tomorrow on doxycycline and Bactrim, pseudomonas is resistant to Cipro (2) Diabetes mellitus type 2 Current Visit: Yes Status: Active Priority: Medium Code(s): E11.9 - TYPE 2 DIABETES MELLITUS WITHOUT COMPLICATIONS SNOMED Code(s): 98798394 Comment: -lantus 10U , SSI. -POC glucose in good range most of time (3) Essential hypertension Current Visit: Yes Status: Active Priority: Medium Code(s): I10 - ESSENTIAL (PRIMARY) HYPERTENSION SNOMED Code(s): 04124999 Comment: -normotensive -continue home atenolol - amlodipine 10mg on hold in setting of sepsis. (4) DVT prophylaxis Current Visit: No Status: Acute Priority: Low Code(s): GZS1152 - SNOMED Code(s): 249927631 Comment: heparin SC Status and Disposition: medicine inpatient.
[2018-09-10] MEDS: Sertraline* 25 MG TAB PO SCH (20:47)
[2018-09-10] MEDS: Mirtazapine TAB* 15 MG PO SCH (20:47)
[2018-09-10] MEDS: Insulin GLARGINE(*) 1 UNITS UNIT SUBCUT SCH (21:21)
[2018-09-11] MEDS: Aztreonam (*) 1 GM in NS 0.9% 50 ML* 50 ML IVPB SCH ×2 (00:08→09:20)
[2018-09-11] MEDS: NS 0.9% 1000 ML** 1,000 ML IV SCH ×2 (00:08→11:05)
[2018-09-11] MEDS: Heparin VIAL(*) 5000 UNITS/ML VIAL (FIVE THOUSAND) SUBCUT SCH ×2 (05:36→14:07)
[2018-09-11] MEDS: metroNIDAZOLE * 500 MG TABLET PO SCH ×2 (05:36→12:49)
[2018-09-11 08:27] VITALS: BP 132/40
[2018-09-11] MEDS ORDERED: Vancomycin Trough Check NOTE FOLLOW UP ONE (09:00)
[2018-09-11] MEDS: Insulin LISPRO* 1 UNITS UNIT SUBCUT SCH ×2 (09:05→12:49)
[2018-09-11] MEDS: Atenolol TAB* 50 MG PO SCH (09:05)
[2018-09-11] MEDS: Aspirin EC TAB* 81 MG TAB.EC PO SCH (09:05)
[2018-09-11] MEDS: Docusate CAP* 100 MG PO SCH (09:05)
[2018-09-11] MEDS: Vancomycin(*) 750 MG in NS 0.9% 250 ML* 250 ML IVPB SCH (10:14)
[2018-09-11] MEDS ORDERED: Vancomycin(*) 1,250 MG in NS 0.9% 250 ML* 250 ML IVPB SCH (13:00)
--- NOTE | 2018-09-11 15:35 | TRS ---
CC: Dr. [facility], [facility]; Beronica Suh NP DATE OF ADMISSION: 09/07/2018. DATE OF TRANSFER: 09/11/2018. ACCEPTING FACILITY: [facility], Dr. Horn. PRIMARY DIAGNOSIS: Severe sepsis due to cellulitis on the left thigh. SECONDARY DIAGNOSES: Left hip decubitus ulcer; sacral decubitus ulcer; wound culture left hip positi ve for MRSA, pseudomonas, and Acinetobacter; type 2 diabetes; hypertension; hyperlipidemia; depressio n; general deconditioning; nausea. MEDICATIONS: 1. Acetaminophen 325 mg p.o. q.4 hours prn fever or pain. 2. LiquaCel amino acids and protein 15 ml p.o. b.i.d. 3. Aspirin 81 mg p.o. daily. 4. Insulin NPH 10 units subcu in the morning and 7 units subcu in the evening. 5. Metformin 1,000 mg p.o. b.i.d. 6. Mirtazapine 7.5 mg p.o. at bedtime. 7. Ondansetron 4 mg p.o. q.6 hours prn nausea. 8. Sertraline 25 mg p.o. at bedtime. 9. Simvastatin 20 mg p.o. at bedtime. 10. Tramadol 50 mg p.o. t.i.d. prn pain. 11. Amlodipine 2.5 mg p.o. daily. 12. Atenolol 50 mg p.o. daily. 13. Bisacodyl suppository p.r. daily as needed for constipation. 14. Docusate 100 mg p.o. b.i.d. 15. Doxycycline 100 mg p.o. b.i.d. for 2 weeks. HOSPITAL COURSE: The patient with long-term decubitus ulcer in the sacrum and left hip, transferred from [facility] with spreading erythema on the left thigh and sepsis as a result with a tachypnea r ate of 24 and white blood count of 15.9. She did have elevated lactic acid as well. The white count fell to 8.3 with treatment. Sedimentation rate was greater than 120. Lactic acid was 3.1 on admissi on and 1.8 after six hours. The patient was treated with oral Flagyl, IV Vanco, and Aztreonam for MR and polymicrobial infection. Over the next four days, she had resolution of the erythema on her l eft hip. We continued the wound care treatment with Silver Alginate rope designed by the wound care physician at [facility] while she was in the hospital here with good results. The patient's wounds were slowly healing and the cellulitis has resolved as well as the sepsis. Because of ALLERGY TO KEMP LFA AND PENICILLIN and because of sensitivities documented on the bacteria, she was sent home with tw o weeks of Doxycycline. We could not give her Augmentin because of allergy and we could not give her Bactrim because of allergy. Blood cultures are negative to growth at three days on discharge. Other laboratory abnormalities during the hospital stay, she had a hemoglobin that was stable between 7.9 and 8.3, and an iron level less than 17, TIBC 179 consistent with anemia of chronic disease. e patient also had a transaminitis with AST of 312 and ALT 268. These numbers were 170 and 190 respe ctively on recheck. The patient seemed to have acute liver injury due to sepsis which was resolving. On the , her Vanco trough was 23 and on the her Vanco trough was 24. Her Vanco was held o n discharge, but it was still certainly effective for a couple more days. Her diabetes was under reasonable control on admission with fingersticks running between 99 to 192. On the day prior to discharge, she had fingersticks of 300 and 418 down to 189 on discharge. On , she was switched from Lantus 10 units per day back to her 17 units of NPH per day and back on her Metformin on discharge which should improve her sugars. She did have some nausea in the last 24 hours and some spitting up of pills. She has chronic nausea and I expect this will resolve with stopping oral Flagyl and stopping the IV Aztreonam. This should b e monitored at the nursing facility. CONDITION ON DISCHARGE: Stable, but generally poor on discharge. STATUS: Inpatient. DIET: Diabetic. ACTIVITY: She is Elvis lift to chair, needs to be turned in position every two hours due to the woun ds on her sacrum and hip. TIME SPENT: I spent greater than 45 minutes coordinating this case on discharge with the patient and the nursing facility and completing the necessary documentation and paperwork. [id number] #: [id number]
--- NOTE | 2018-09-11 17:04 | CONSULT ---
Subjective Date of Service: 09/11/18 Interval History: Ms. Cho is a 77 yp female with PMH significant for Patient seen and examined at bedside. Family History: Unchanged from Admission Social History: Unchanged from Admission Past Medical History: Unchanged from Admission Review of Systems - Measurements Intake and Output: Intake and Output Last 24 Hours 09/09/18 09/10/18 09/11/18 09/12/18 06:59 06:59 06:59 06:59 Intake Total 4461 3673 4304 1769 Balance 4461 3673 4304 1769 Intake: IV Fluids 3253 1778 1529 999 Aztreonam 10 NS (0.9%) 3253 1768 1529 999 IVPB 908 415 315 50 ABX - VANCOMYCIN 205 260 Aztreonam 50 115 55 50 NS (0.9%) 653 300 Oral 300 1480 2460 720 Other: Estimated Void Large Large Large Date of Last Bowel unknown 09/11/18 Movement # Bowel Movements 0 0 0 1 Estimated Stool Amount Large Small Small # Voids 1 1 2 1 - Review of Systems Constitutional Symptoms: Negative: Fever, Other - Chills Dermatology: Positive: Other - Chronic pressure injuries Objective Active Medications: Amlodipine Besylate (Norvasc Tab*) 2.5 mg PO DAILY [facility] Aspirin (Aspirin Ec Tab*) 81 mg PO DAILY [facility] Atenolol (Tenormin Tab*) 50 mg PO DAILY [facility] Bisacodyl (Dulcolax Supp*) 10 mg PA DAILY PRN Reason: CONSTIPATION Dextrose (D50w Syringe 50 Ml*) 12.5 gm IV PUSH .FOR FS < 60 - SS PRN Reason: FS < 60 Docusate Sodium (Colace Cap*) 100 mg PO BID [facility] Heparin Sodium (Porcine) (Heparin Vial(*)) 5,000 units SUBCUT Q8HR [facility] Sodium Chloride (Ns 0.9% 1000 Ml) 1,000 mls @ 100 mls/hr IV PER RATE [facility] Aztreonam 1 gm/ Sodium (Chloride) 50 mls @ 200 mls/hr IVPB Q8H [facility] Vancomycin HCl 1,250 mg/ (Sodium Chloride) 250 mls @ 166.667 mls/hr IVPB Q24HR@ 1300 [facility] Insulin Glargine (Lantus(*)) 5 units SUBCUT Q24H [facility] Insulin Human Lispro (Humalog*) 0 units SUBCUT ACHS [facility]; Protocol Metronidazole (Flagyl) 500 mg PO Q8H [facility] Mirtazapine (Remeron Tab*) 7.5 mg PO BEDTIME [facility] Ondansetron HCl (Zofran Tab*) 4 mg PO Q6H PRN Reason: NAUSEA/VOMITING Pharmacy Consult (Vancomycin Per Pharmacy*) 1 note FOLLOW UP . PRN Reason: PER PROTOCOL Pharmacy Profile Note (Vancomycin Trough Check) 1 note FOLLOW UP ONCE ONE Stop: 09/14/18 12:31 Sertraline HCl (Zoloft*) 25 mg PO BEDTIME [facility] Oxygen Devices in Use Now: None Appearance: NAD, laying in bed Ears/Nose/Mouth/Throat: Mucous Membranes Moist Respiratory: Symmetrical Chest Expansion and Respiratory Effort Skin: - - See skin note below Neurological: Alert and Oriented x 3 Nutrition: Taking PO's Result Diagrams: 09/10/18 06:05 09/10/18 06:05 Additional Lab and Data: Microbiology and Other Data: Microbiology 09/07/18 18:23 Aerobic Blood Culture - Preliminary Blood Venous No Growth Day 3 Anaerobic Blood Culture - Preliminary No Growth Day 3 09/07/18 17:45 Aerobic Blood Culture - Preliminary Blood Venous No Growth Day 3 Anaerobic Blood Culture - Preliminary No Growth Day 3 09/07/18 17:52 Skin and Soft Tissue MRSA/MSSA (PCR - Final Hip Left Mrsa Positive S.aureus Positive Gram Stain - Final Wound Culture - Final MRSA Pseudomonas Aeruginosa Acinetobacter Baumannii Complx 09/07/18 17:52 Nasal Screen MRSA (PCR) - Final Nasal Mrsa Detected Skin Deviation Note - Skin Deviation Findings Right ankle - Left hip Coccyx - Recommendations: Continue current dressing change. Consider referral to the wound clinic as an outpatient. Wound Problem/Plan Is Patient a Wound Clinic Patient: No - Followed by a wound provider at the [facility] home Attending: Corinne Herrera
[2018-09-12] MEDS ORDERED: amLODIPine TAB* 5 MG PO SCH (09:00)
[2018-09-14] MEDS ORDERED: Vancomycin Trough Check NOTE FOLLOW UP ONE (12:30)
== END 2018-09-11 16:30 | DRG 871 ==
LOC: ED 16:31 → MED 20:15
PROVIDERS: ADMIT Hospitalist; ATTEND Internal Medicine
DX: A41.9 Sepsis, unspecified organism (principal); L89.224 Pressure ulcer of left hip, stage 4; L03.116 Cellulitis of left lower limb; E87.2 Acidosis; N17.9 Acute kidney failure, unspecified; R65.20 Severe sepsis without septic shock; L89.159 Pressure ulcer of sacral region, unspecified stage; E11.622 Type 2 diabetes mellitus with other skin ulcer; D63.8 Anemia in other chronic diseases classified elsewhere; I10 Essential (primary) hypertension; E78.5 Hyperlipidemia, unspecified; F32.9 Major depressive disorder, single episode, unspecified; B96.5 Pseudomonas (aeruginosa) (mallei) (pseudomallei) as the cause of diseases classified elsewhere; B95.62 Methicillin resistant Staphylococcus aureus infection as the cause of diseases classified elsewhere; R74.0 Nonspecific elevation of levels of transaminase and lactic acid dehydrogenase [LDH]; R82.998 Other abnormal findings in urine; R11.0 Nausea; Z79.84 Long term (current) use of oral hypoglycemic drugs; Z79.1 Long term (current) use of non-steroidal anti-inflammatories (NSAID); Z79.82 Long term (current) use of aspirin; Z79.899 Other long term (current) drug therapy; Z88.0 Allergy status to penicillin; Z88.2 Allergy status to sulfonamides
CPT/HCPCS: 36415; 76705; 80048; 80053; 80202; 82607; 82728; 82947; 83540; 83550; 83605; 85025; 85060; 85652; 86140; 87040; 87070; 87077; 87186; 87205; 87640; 87641; 93005; 99284; A9270-GY; J1644; J3370; J3490

== ENCOUNTER 2018-09-22 20:01 | Inpatient (IN) | payer MEDICARE ==
--- NOTE | 2018-09-22 20:13 | ED ---
Altered Mental Status - HPI Summary HPI Summary: This patient is a 77 year old F brought in by ambulance to [facility] due to decreased responsiveness and septic for an unknown amount of time per EMS. EMS reports bradycardia, diminished breathing, and gurgling. They state BS was 28 at residential when she was given glucagon and orange juice. BS improved to 56. EMS states she is unresponsive but awake with some eye movement. HPI is limited. Patient is level 5 caveat due to AMS. - History Of Current Complaint Stated Complaint: AMS PER EMS Time Seen by Provider: 09/22/18 20:03 Hx Obtained From: EMS Hx From Patient Unobtainable Due To: Altered Mental Status Onset/Duration: Unknown Character: Responsiveness Aggravating Factor(s): Other - hypoglycemia Alleviating Factor(s): Nothing - Allergies/Home Medications Allergies/Adverse Reactions: Allergies Allergy/AdvReac Type Severity Reaction Status Date / Time Penicillins Allergy Anaphylatic Verified 09/22/18 20:29 Shock Sulfa (Sulfonamide Allergy Rash And Verified 09/22/18 20:29 Antibiotics) Itching PMH/Surg Hx/FS Hx/Imm Hx Endocrine/Hematology History: Reports: Hx Diabetes - DM II Denies: Hx Thyroid Disease, Hx Anemia Cardiovascular History: Reports: Hx Hypercholesterolemia, Hx Hypertension Denies: Hx Pacemaker/ICD GI History: Denies: Hx Jaundice Sensory History: Reports: Hx Cataracts - Removed, Hx Contacts or Glasses Denies: Hx Hearing Aid Opthamlomology History: Reports: Hx Cataracts - Removed, Hx Contacts or Glasses Neurological History: Reports: Other Neuro Impairments/Disorders - CVA, left sided weakness Denies: Hx Headaches Psychiatric History: Reports: Hx Depression Denies: Hx Panic Disorder - Surgical History Surgery Procedure, Year, and Place: BILAT CATARCTS - Immunization History Date of Tetanus Vaccine: unk Date of Influenza Vaccine: unk Infectious Disease History: Reports: Hx of Known/Suspected MRSA - Family History Known Family History: Positive: Other - Lung carcinoma - Social History Alcohol Use: None Hx Substance Use: No Substance Use Type: Reports: None Hx Tobacco Use: Yes Smoking Status (MU): Former Smoker Review of Systems Positive: Other - AMS All Other Systems Reviewed And Are Negative: No - Comments Additional Review of Systems Comments: ROS is limited. Patient is level 5 caveat due to AMS. Physical Exam - Summary Physical Exam Summary: Appearance: awake but very lethargic ill-appearing elderly woman; vital signs of bradycardia and hypothermia Skin: Warm, dry, no obvious rash, 4cm deep ulcer over sacrum with some surrounding erythema no induration no warmth no drainage Eyes: sclera anicteric, no conjunctival pallor ENT: mucous membranes moist, pharynx appears normal Neck: Supple, nontender Respiratory: Clear to auscultation, no signs of respiratory distress Cardiovascular: Bradycardic Normal S1, S2. No murmurs. Normal distal pulses in tibial and radial bilaterally. Abdomen: Soft, nontender, normal active bowel sounds present Neurological: awake but very lethargic Psychiatric: affect is normal, does not appear anxious or depressed Triage Information Reviewed: Yes Vital Signs Reviewed: Yes Diagnostics - Laboratory Result Diagrams: 09/22/18 21:03 09/23/18 13:28 Lab Statement: Any lab studies that have been ordered have been reviewed, and results considered in the medical decision making process. - Radiology CXR Radiology Interpretation Completed By: ED Physician Summary of Radiographic Findings: Possible infiltrate in the right mid lung field. - EKG EKG Cardiac Rate: Bradycardia - 48 BPM EKG Rhythm: Sinus Bradycardia Summary of EKG Findings: NSR at 48 BPM, P waves, QRS complex, and T waves are within normal limits, T waves and intervals are normal, no ischemic changes. This is a normal EKG Altered Mental Statu Course/Dx - Course Course Of Treatment: 77 year old F brought in by ambulance to [facility] due to decreased responsiveness and septic for an unknown amount of time per EMS. EMS reports bradycardia, diminished breathing, and gurgling. They state BG was 28 at residential when she was given glucagon and orange juice. BG improved to 56. EMS states she is unresponsive but awake with some eye movement. Bloodwork and UA obtained with WBC 21.5, RBC 2.77, Carbon dioxide 9, glucose 48, and troponin 0.04. CXR reveals Possible infiltrate in the right mid lung field. EKG reveals sinus bradycardia. Patient given 3000mls IVF, 500mg Levaquin and 25g of dextrose. of Case discussed with Dr. Loera, hospitalist, who agrees to admission. - Diagnoses Provider Diagnoses: Sepsis, UTI (urinary tract infection), PNA (pneumonia) - Provider Notifications Discussed Care Of Patient With: Raul Ugarte - hospitalist Time Discussed With Above Provider: 21:36 Instructed by Provider To: Admit As Inpatient - Critical Care Time Critical Care Time: 30-74 min Discharge - Sign-Out/Discharge Documenting (check all that apply): Patient Departure - admit Patient Received Moderate/Deep Sedation with Procedure: No - Discharge Plan Condition: Critical Disposition: ADMITTED TO [facility] - Billing Disposition and Condition Condition: CRITICAL Disposition: Admitted to [facility] - Attestation Statements Document Initiated by Scribe: Yes Documenting Scribe: Adrianna Scott Provider For Whom Tameka is Documenting (Include Credential): Venkat Young MD Scribeliu Attestation: Adrianna Riojas, scribed for Venkat Young MD on 09/25/18 at 1115. Scribe Documentation Reviewed: Yes Provider Attestation: The documentation as recorded by the Adrianna colon accurately reflects the service I personally performed and the decisions made by Venkat jain MD Status of Scribe Document: Viewed
[2018-09-22] MEDS: NS 0.9% 1000 ML** 2,000 ML IV ONE ×2 (20:36→21:28)
[2018-09-22 20:52] LABS: Urine Appearance Turbid; Urine Bacteria Absent (Absent); Urine Bilirubin Negative (Negative); Urine Blood 1+ (Negative); Urine Color Yellow; Urine Glucose Negative (Negative); Urine Ketones Trace (Negative); Urine Nitrite Negative (Negative); Urine Protein 2+(100 mg/dL) (Negative); Urine Red Blood Cell 3+(>10/hpf) (Absent); Urine Specific Gravity 1.019 (1.010-1.030); Urine Urobilinogen Negative (Negative); Urine White Blood Cell 3+(>20/hpf) (Absent)
[2018-09-22] MEDS ORDERED: Levofloxacin 500 MG IVPREMIX(* 500 MG/100 ML BAG IVPB ONE (20:56)
[2018-09-22 21:13] LABS: Hematocrit 23 % (35-47); Hemoglobin 6.8 g/dL (12.0-16.0); Mean Corpuscular HGB Conc 30 g/dL (31-36); Mean Corpuscular Hemoglobin 25 pg (27-31); Mean Corpuscular Volume 84 fL (80-97); Mean Platelet Volume 6.8 fL (7.4-10.4); Platelet Count 438 10^3/uL (150-450); Red Blood Count 2.77 10^6 /uL (3.70-4.87); Red Cell Distribution Width 30 % (10.5-15); White Blood Count 21.5 10^3/uL (3.5-10.8)
[2018-09-22 21:20] LABS: Activated Partial Thrombo Time 32.9 seconds (26.0-36.3); INR 1.4 (0.82-1.09)
[2018-09-22] MEDS ORDERED: NS 0.9% 1000 ML** 3,000 ML IV ONE (21:25)
[2018-09-22 21:30] LABS: ALT 45 U/L (7-52); AST 62 U/L (13-39); Albumin 2.2 g/dL (3.2-5.2); Albumin/Globulin Ratio 0.8 (1-3); Alkaline Phosphatase 758 U/L (34-104); C Reactive Protein 74.57 mg/L (<8.01); Calcium 7.8 mg/dL (8.6-10.3); EGFR African American 14.2 (>60); EGFR Non-African American 11.7 (>60); Globulin 2.8 g/dL (2-4); Sodium 143 mmol/L (135-145)
[2018-09-22 21:33] LABS: Polychromasia 1+
[2018-09-22 21:35] LABS: ABS Basophils 0.1 10^3/ul (0-0.2); ABS Lymphocytes 1.9 10^3/ul (1.0-4.8); ABS Monocytes 1.8 10^3/ul (0-0.8); ABS Neutrophils 17.7 10^3/ul (1.5-7.7); Microcytosis 1+
[2018-09-22 21:37] LABS: ABS Basophils 0.2 10^3/ul (0-0.2)
[2018-09-22 21:41] LABS: Anion Gap 14 mmol/L (2-11); CO2 Carbon Dioxide 9 mmol/L (22-32); Chloride 120 mmol/L (101-111); Glucose 48 mg/dL (70-100); Potassium 5.9 mmol/L (3.5-5.0); Troponin I 0.04 ng/mL (<0.04)
[2018-09-22] MEDS ORDERED: Dextrose 50% Syringe 50 ML* 25 GM/50 ML SYRINGE IV PUSH ONE (21:47)
[2018-09-22 22:01] LABS: BUN/Creatinine Ratio 36.7 (8-20); Blood Urea Nitrogen 137 mg/dL (6-24)
[2018-09-22] MEDS ORDERED: Calcium Gluconate INJ* 1 GM in NS 0.9% 100 ML* 100 ML IVPB ONE (22:29)
[2018-09-22] MEDS ORDERED: NS 0.9% 100 ML* 100 ML ONE (22:41)
[2018-09-22] MEDS ORDERED: Sodium Bicarbonate 8.4%* 50 ML SYRINGE IV ONE (23:05)
[2018-09-22] MEDS ORDERED: NS 0.9% 1000 ML** 1,000 ML IV SCH (23:45)
[2018-09-23] MEDS ORDERED: Vancomycin(*) 1,000 MG in NS 0.9% 250 ML* 250 ML IVPB ONE (00:01)
[2018-09-23] MEDS ORDERED: Vancomycin(*) 1,250 MG IV x ONCE IVPB ONE ×2 (00:30)
[2018-09-23] MEDS ORDERED: Vancomycin per Pharmacy* NOTE FOLLOW UP PRN (00:37)
[2018-09-23] MEDS ORDERED: Vancomycin(*) 0 MG in NS 0.9% 250 ML* 250 ML IVPB SCH (01:00)
[2018-09-23] MEDS: Dextrose 50% Syringe 50 ML* 25 GM/50 ML SYRINGE IV PUSH PRN ×2 (01:06→04:10)
[2018-09-23 02:22] LABS: Calcium 7.5 mg/dL (8.6-10.3); Sodium 143 mmol/L (135-145)
[2018-09-23 02:28] LABS: BUN/Creatinine Ratio 35.6 (8-20); Blood Urea Nitrogen 127 mg/dL (6-24); EGFR African American 14.9 (>60); EGFR Non-African American 12.3 (>60); Glucose 88 mg/dL (70-100); Troponin I 0.03 ng/mL (<0.04)
[2018-09-23 02:36] LABS: Chloride 122 mmol/L (101-111)
[2018-09-23] MEDS ORDERED: Aztreonam (*) 2 GM in NS 0.9% 100 ML* 100 ML IVPB ONE (02:45)
[2018-09-23] MEDS ORDERED: Sodium Bicarbonate 8.4% IV* 75 MEQ in NS 0.45% 1000 ML BAG* 1,000 ML IV SCH (03:00)
[2018-09-23] MEDS: Morphine 4 MG/ML VIAL (1 ml) 4 MG/ML VIAL IV PRN ×5 (03:14→18:30)
[2018-09-23 04:07] LABS: CO2 Carbon Dioxide < 7 mmol/L (22-32)
--- NOTE | 2018-09-23 04:46 | HP ---
HISTORY AND PHYSICAL: DATE OF ADMISSION: 09/22/18 PROVIDER: BRITTA Monte ATTENDING PHYSICIAN: Dr. Vic Loera * (dictated by BRITTA Monte). PRIMARY CARE PHYSICIAN: Dr. Debbi Horn at [facility]. CHIEF COMPLAINT: Altered mental status and hypoglycemia. HISTORY OF PRESENT ILLNESS: Elina Cho is a 77-year-old white female with past medical history significant for hypertension, hyperlipidemia, diabetes mellitus type 2, depression, generalized deconditioning, and decubitus ulcers who presents to emergency department via EMS from [facility] when a nursing staff notes a hypoglycemia to 26 and altered mental status. The patient received glucagon at [facility] and was brought to the emergency department. The patient at the time of evaluation is not able to communicate, not able to answer questions, and not able to follow direction, but she does open her eyes to touch. The patient is not able to provide history, so history is gathered from nursing staff at [facility]. It does not appear that the patient has had any evidence of GI bleed. The nursing staff believes that she had a normal stool today that was dark brown. She has had some abnormal breathing for the last weekend. Staff think that her skin was appearing yellow for the last week. Today, the patient received 7 units of insulin before dinner from nursing staff and then did not eat dinner, then later she was found to be "acting unusual" per nursing staff and found to have the hypoglycemia as mentioned. Additionally, the patient was recently discharged from [facility] on 09/11/18 to return home to [facility] due to cellulitis surrounding decubitus ulcer. The cellulitis was improved at the time of discharge and does still appear that way today and she has been receiving wound care at [facility] daily. EMERGENCY DEPARTMENT COURSE: Vital signs in the emergency department include Alvarado catheter, body temperature of 93.4, heart rate of 46, respiratory rate 21 , oxygen saturation 93% on 5 L and later 95% on 9 L, blood pressure 116/45 to 108/53. The patient had blood cultures drawn prior to initiating levofloxacin. Additionally, the patient received a 2 L bolus and then later an additional 1 L of normal saline. The hospitalists were asked to evaluate the patient for admission. PAST MEDICAL HISTORY: 1. Hypertension. 2. Hyperlipidemia. 3. Diabetes mellitus type 2. 4. Depression. 5. Generalized deconditioning 6. Decubitus ulcers. PAST SURGICAL HISTORY: Cataract surgery. HOME MEDICATIONS: 1. Docusate 100 mg p.o. b.i.d. 2. Doxycycline 100 mg p.o. b.i.d. 3. Bisacodyl 10 mg per rectum daily p.r.n. constipation. 4. Atenolol 50 mg p.o. daily. 5. Aspirin 81 mg p.o. daily. 6. LiquaCel 100 liquid packet 15 mL p.o. b.i.d. 7. Acetaminophen 325 p.o. q.4 hours p.r.n. pain. 8. Sertraline 25 mg p.o. at bedtime. 9. Zofran 4 mg p.o. q.6 hours p.r.n. nausea or vomiting. 10. Remeron 50 mg p.o. at bedtime. 11. Insulin NPH 10 units subcu q.a.m. 12. Insulin NPH 7 units subcu q.p.m. 13. Tramadol 50 mg p.o. t.i.d. p.r.n. pain. 14. Metformin 1000 mg p.o. b.i.d. 15. Amlodipine 2.5 mg p.o. daily. 16. Simvastatin 20 mg p.o. q.p.m. ALLERGIES: The patient has an allergy of anaphylaxis to PENICILLIN and reaction of rash and itching to SULFA DRUGS. FAMILY HISTORY: Noncontributory. SOCIAL HISTORY: The patient lives at [facility]. Her daughter Rosario is her healthcare proxy and her phone number is [phone]. The patient does not smoke, drink, or use drugs. REVIEW OF SYSTEMS: The patient was unable to participate with review of systems as she is unable to communicate her needs. PHYSICAL EXAMINATION GENERAL: Obese, elderly white female, lying in ED stretcher, appearing comfortable though respiring with audible gurgling, not appearing in acute distress, on 10 L of oxygen. The patient is in a Hammad Hugger. HEENT: Eyes: PERRLA, sclerae anicteric, EOMI. Head: Atraumatic, normocephalic. ENT: Mucous membranes moist. NECK: Without JVD. Neck is supple. LUNGS: Lungs are rhonchorous throughout and respiring with gurgling as previously mentioned. CARDIO: Difficult to auscultate heart sounds due to rhonchorous lung sounds in the anterior region. Rate has a regular rhythm but bradycardic rate to the high 40s. ABDOMEN: Abdomen is soft, nontender, nondistended, normoactive bowel sounds x4 quadrants. EXTREMITIES: There is trace pitting edema in the hands and feet. No clubbing or cyanosis. NEUROLOGIC: The patient is alert to touch but appears oriented x0. She does not answer questions. She does not answer what her name is and does not follow commands. SKIN: Wound to lateral hip does appear purulent. Skin does appear minimally jaundiced. Skin is warm though under Hammad Hugger. Skin is dry. DIAGNOSTIC STUDIES/LAB DATA: White blood cell count 21.5, red blood cell count 6.8, hematocrit 23, platelet count 438. INR 1.4, PTT 39.9. Sodium 143, potassium 5.9, chloride 120, carbon dioxide 9, anion gap 14, BUN 137, creatinine 3.73, glucose 48, lactic acid 5.5, calcium 7.8. Total bili 3.8, AST 62, ALT 45, alk phos 758. Troponin 0.04. CRP 74.57. Albumin 2.2, globulin 2.8. ABG pH 7.18, ABG pCO2 less than 20, ABG pO2 77, ABG bicarb 9.4, ABG base excess negative 19.8. Urinalysis: Urine appears turbid, urine protein +2, urine ketones trace, urine blood +1, leukocyte esterase +2, white blood cell count +3, red blood cell count +3, bacteria absent, glucose negative. Chest x-ray: There appears to be a consolidation in the right lower lobe. EKG : Normal sinus rhythm, rate 48 beats per minute, there does not appear to be ST elevations or depressions or T-wave inversions. There is some T-wave flattening in lead III and aVF, but this is consistent with prior EKGs. T waves did not appear enlarged. ASSESSMENT AND PLAN: Elina Cho is a 77-year-old white female with past medical history significant for hypertension, hyperlipidemia, diabetes mellitus type 2, depression, generalized deconditioning and decubitus ulcers, who presents to the emergency department from [facility] due to altered mental status and hypoglycemia. The patient will be admitted inpatient to the ICU for: 1. Septic shock. The patient meets criteria for septic shock it appears that she has a urinary tract infection and pneumonia and she also has known decubitus ulcers, previously methicillin-resistant Staphylococcus aureus positive. She has leukocytosis to 21.5. Her organ system failure includes creatinine to 3.73, total bilirubin of 3.80. She is not hypotensive at this time, but she does have acute respiratory needs with 10 L oxygen. Her lactic acid is 5.5, which indicates septic shock. She additionally has a lactic acidosis, confirmed on ABG pH of 7.18. The patient had blood cultures drawn in the emergency department prior to receiving a dose of Levaquin. I will continue vancomycin as the patient does have known methicillin-resistant Staphylococcus aureus in her wounds and to cover possible methicillin-resistant Staphylococcus aureus, pneumonia. Of note, the patient has anaphylaxis to PENICILLINS. The patient received normal saline fluid bolus and I will continue maintenance fluid to 100 mL per hour. We will recheck lactic acid in 4 hours. We will continue wound care in the hospital. I will be holding the patient's amlodipine to prevent hypotension. The patient has been taking doxycycline at [facility] for further treatment of her methicillin-resistant Staphylococcus aureus positive decubitus ulcers and we will hold this while we are continuing vancomycin. 2. Acute kidney injury. This is likely a complication of the patient's septic shock though may potentially be due to her urinary tract infection. The patient is already receiving fluids. We will continue to monitor. I will be holding the patient's atenolol as this is renally cleared. 3. Hyperkalemia. This is likely due to the patient's acute kidney injury. Her potassium is likely 9. The patient has received calcium gluconate as well as sodium bicarb and we will follow her potassium. 4. Bradycardia. Bradycardia is likely due to hyperkalemia and the patient will be admitted on telemetry in the intensive care unit. This will hopefully improve with normalization of potassium. I will be holding the patient's atenolol. 5. Elevated troponin. The patient has a troponin of 0.04. We will continue to trend this. She does not currently have any EKG changes. The patient is unable to express that she is symptomatic. Nursing at [facility] states the patient has not complained of any chest pain. It is possibly due to ischemic demand and due to the septic shock. 6. Acute hypoxia. The patient is requiring new oxygen requirement at 10 L. This is likely related to her pneumonia and subsequent septic shock. We will continue to monitor her respiratory status. ABG demonstrates pCO2 of less than 20. BiPAP is not indicated at this time. 7. Altered mental status. This is likely due to the patient's septic shock but may also be due to her new hypoxia, though initially was probably caused by her hypoglycemia, but this is improving as further described below. We will continue to monitor her mental status. 8. Hypoglycemia. The patient's blood sugar in emergency department was 48 and then the patient received D50, and then later fingerstick indicated blood glucose of 109. We will have to hold the patient's metformin and institute finger checks again in 4 hours and then a.c. and h.s., lispro sliding scale is not ordered. The patient's normal home insulin has been held. 9. Anemia. When the patient was last hospitalized, she did have an anemia with hemoglobin as low as 7.9. It is unclear the etiology of this anemia. Per nursing, it does not appear that there has been any blood loss in the stool. She does appear to have a chronic anemia where her baseline is around 11. It does not appear that her hemoglobin has ever been this low per EMR. The patient 's daughter provided consent for transfusions and the patient received 2 units of packed red blood cells and she will be monitored closely for infusion reactions. I will be holding the patient's aspirin in the setting of anemia. 10. FEN. Addressing hyperkalemia as previously mentioned, carb consistent diet has been ordered, though the patient's ability to eat at this time does not seem safe. We will continue to monitor in the setting of altered mental status. Fluids: The patient is receiving normal saline at 100 mL per hour. 11. DVT prophylaxis. Chemoprophylaxis is contraindicated in the setting of severe anemia. The patient will have SCDs ordered. 12. Code status. The patient is full code. In accordance with her current MOLST, the patient's daughter Rosario, who is her healthcare proxy agrees at this time. TIME SPENT: Approximately 70 minutes was spent on this admission; approximately 20 minutes of this time was spent discussing with family. This case has been reviewed by my attending, Dr. Vic Loera, and he agrees with this plan of care. BRITTA MONTE [id number]/[facility] #: [id number] [facility] MEDICAL CENTERAntoinette
[2018-09-23] MEDS: Sodium Bicarbonate 8.4% IV* 75 MEQ in D5W 1000 ML BAG* 1,000 ML IV SCH ×2 (05:08→16:36)
[2018-09-23] MEDS: Insulin LISPRO* 1 UNITS UNIT SUBCUT SCH ×3 (07:25→16:36)
[2018-09-23] MEDS: NS 0.9% 1000 ML** 1,000 ML IV SCH ×2 (08:13→09:50)
[2018-09-23] MEDS ORDERED: DOXYcycline CAP(*) 100 MG PO SCH (09:00)
--- NOTE | 2018-09-23 13:03 | CONS ---
CONSULTATION REPORT: DATE OF CONSULT: 09/23/18 REFERRING PROVIDER: Dr. Sabina Madrid, Eligibility Worker. REASON FOR CONSULT: Sepsis and cholelithiasis and possible abdominal pain. HISTORY OF PRESENT ILLNESS: Ms. Elina Cho is a 77-year-old white female, who is presently a resident at [facility] over the past year and a half or so with a past medical history of hypertension, obesity, hyperlipidemia, diabetes mellitus, depression, generalized deconditioning, and known sacral and left hip decubitus, presented to the emergency room by EMS from [facility] last night when the staff there noted altered mental status and a blood sugar of 26. She received Glucagon at [facility] and brought to the emergency department where she was found to have altered mental status, not able to answer questions, and somewhat obtunded. She was hypotensive and noted to have an elevated white blood cell count of 20,000 with an elevated lactic acid of 5.5. Also of significance was an elevated creatinine of 3.73. Of note , her last creatinine on 09/10/18 was 0.76. BUN was noted to be 137. She was markedly acidotic with a bicarb of 9 on her basic metabolic profile. She was also noted to have a total bilirubin of 3.8, also having a normal bilirubin several weeks ago. She was resuscitated and admitted to the intensive care unit. She received IV fluids. She is not intubated as she has been noted to be a do not intubate patient. Cultures have been taken and she has been started on broad-spectrum IV antibiotics for the sepsis protocol. There was concern for some abdominal discomfort and for evaluation of the pressure ulcers, surgical consultation was obtained. All the history is obtained from the chart. The patient's oldest daughter also was at her bedside, but she had not seen the patient since around [facility]. PAST MEDICAL HISTORY: 1. Type 2 diabetes. 2. Obesity. 3. Hypertension. 4. Hyperlipidemia. 5. Depression. 6. Generalized deconditioning. PAST SURGICAL HISTORY: There has been no abdominal surgeries. MEDICATIONS: 1. Aspirin. 2. Metformin. 3. Docusate. 4. Atenolol. 5. Dulcolax. 6. Simvastatin. 7. Sertraline. 8. Amlodipine. 9. Remeron. 10. LiquaCel. 11. Zofran. 12. Tylenol. 13. Novolin insulin. 14. Tramadol. ALLERGIES: She is allergic to PENICILLIN and SULFA. SOCIAL HISTORY: The patient is a long-term resident at [facility]. Per the record, she does not smoke, she does not drink alcohol. Her daughter is the healthcare proxy. REVIEW OF SYSTEMS: Unable to be obtained from the patient and only limited information from the patient's daughter as per above. PHYSICAL EXAM: Temperature 96.3, pulse 58, blood pressure 114/51, respirations 27. Lungs with diminished breath sounds throughout. There were no rhonchi or rales. Heart was regular rate and rhythm, but somewhat slow. Her abdomen is soft and nondistended. She had some bowel sounds that were normoactive throughout. There were no prior surgical incisions. I appreciate no hernias. There is no abdominal wall redness. Also noted was a clean left hip decubitus, which extends down to muscle without exposed bone or fascia. There is some surrounding erythema, but no un-drained abscess, pus, odor, or necrotic tissue. She also has a larger sacral decubitus, which has a healthy red base. It does appear to extend the bone. There is some skin irritation surrounding this, but no odor, nonviable tissue or abscess, requiring surgical debridement. Extremities showed mild edema. DIAGNOSTIC STUDIES/LAB DATA: Chest x-ray showed some possible bilateral pleural effusions with some pulmonary edema and a possible right lower lobe infiltrate. Urinalysis showed 1+ blood, 2+ leukocyte esterase, 3+ white cells, and red cells. It is noted on past urinalysis over the several years, have looked similar. I am not sure if the patient has a chronic indwelling Alvarado catheter. IMPRESSION: Profound sepsis with lactic acidosis, acute renal failure, hypotension, hypoglycemia, and metabolic acidosis. She has known sacral and left hip decubitus and has been recently treated for severe sepsis due to what was felt to be a source of the left hip. Neither these 2 sites appeared to be a source of significant sepsis and do not need any surgical intervention other than routine wound care at this point. Certainly, she could have developed sepsis, certainly could have developed blood infection from these sources, but this would need to be treated medically at this point. On review of her history, she does have an ultrasound several weeks ago that was done for some mild elevation of her liver transaminases. This did show cholelithiasis without evidence of cholecystitis or ductal dilation. Profound sepsis is the unusual secondary to an acute calculus cholecystitis, especially with the rather sudden onset of her symptoms; however, an acute ascending cholangitis could account for the sepsis and this would need to be further evaluated with either a CT scan, ultrasound, or MRCP. Her abdominal physical exam is somewhat unreliable due to her mental status; however, the abdomen is soft with bowel sounds and no distention or involuntary guarding. At this point, we certainly have to consider an acute intraabdominal catastrophe such as an ischemic event leading to infarcted bowel. I discussed all of these findings with her oldest daughter, who is at the bedside. I also discussed this in detail with Dr. Madrid. At present, she is too unstable to proceed with the CT scan of the chest, abdomen, and/or pelvis at this point. An ultrasound of her abdomen is going to be obtained. Likewise, she is too unstable to even consider general anesthesia with an intraabdominal procedure. The daughter also is not certain to the extensive care that the patient would want and there is a second daughter who will be coming in to town this afternoon. Certainly, she is critically ill and has a significant morbidity and mortality. For now, I would continue with the aggressive resuscitation, pressors as needed , broad-spectrum IV antibiotics, and await the ultrasound as well as the cultures that have been obtained so far. We will follow her closely with you. [id number]/[facility] #: [id number] ARMANDO
[2018-09-23 13:58] LABS: Albumin 2.5 g/dL (3.2-5.2); CO2 Carbon Dioxide < 7 mmol/L (22-32); Calcium 6.8 mg/dL (8.6-10.3); Chloride 117 mmol/L (101-111); Sodium 137 mmol/L (135-145)
[2018-09-23 13:59] LABS: ALT 44 U/L (7-52); Albumin/Globulin Ratio 0.9 (1-3); Alkaline Phosphatase 619 U/L (34-104); BUN/Creatinine Ratio 34.3 (8-20); Blood Urea Nitrogen 124 mg/dL (6-24); EGFR African American 14.7 (>60); EGFR Non-African American 12.2 (>60); Globulin 2.8 g/dL (2-4); Glucose 96 mg/dL (70-100); Total Protein 5.3 g/dL (6.4-8.9)
[2018-09-23] MEDS ORDERED: Albumin Human 5%* 12.5 GM/250 ML BTL IV ONE (14:06)
[2018-09-23] MEDS ORDERED: NS 0.9% 1000 ML** 1,000 ML IV SCH (14:45)
--- NOTE | 2018-09-23 14:55 | PN ---
Date of Service: 09/23/18 - [facility] note Critical Care Services: Pt seen and examined at bedside. Pt not able to provide history. Info obtained from Dr Loera, review of medical records. Pt continues to remain critically ill. She is hypotensive, hypoxic and with severe acidosis. Vital Signs: Temp Pulse Resp BP SpO2 FiO2 96.3 F 59 25 103/49 100 100 09/23/18 11:00 09/23/18 11:00 09/23/18 14:24 09/23/18 11:00 09/23/18 11:00 09/23 08:00 Physical Exam: Gen: Pt is alert, not able to communicate. Pt using accessory muscles HEENT: PERRLA, dry mucus membranes. Lungs: Diminished air entry at bases Cardiac: S1, S2+, bradycardic Abdomen: Soft, dimnished bowel sounds, mild tenderness in RUQ Musculoskeletal/Integumentary: Mottling of skin, cellulitis changes+, large sacral decub, deep with no obvious abscess Neuro: Alert, awake, non-communicative, unable to assess neuro status Fluid Balance (Past 24 Hours): I= 4445 O= 23 Net 4422 Intake & Output 09/21/18 09/22/18 09/23/18 09/24/18 06:59 06:59 06:59 06:59 Intake Total 4445 Output Total 23 12 Balance 4422 -12 Weight 158 lb 11.725 oz Intake: IV Fluids 3785 NS (0.9%) 82 Sodium bicarb d5w 503 IVPB 365 ABX - AZTREONAM 100 ABX - VANCOMYCIN 265 Packed Cells 295 Output: Alvarado 23 12 Labs: Laboratory Results - last 24 hr 09/22/18 09/22/18 09/22/18 20:18 20:29 21:02 WBC RBC Hgb Hct MCV MCH MCHC RDW Plt Count MPV Neut % (Auto) Lymph % (Auto) Josephine % (Auto) Eos % (Auto) Baso % (Auto) Absolute Neuts (auto) Absolute Lymphs (auto) Absolute Monos (auto) Absolute Eos (auto) Absolute Basos (auto) Absolute Nucleated RBC Immature Gran % Neutrophils % Band Neutrophils % Lymphocytes % Monocytes % Basophils % Nucleated RBC % Abs Neuts (Manual) Abs Lymphs (Manual) Abs Monocytes (Manual) Abs Basophils (Manual) Nucleated RBCs/100 WBC Normal RBC Morphology Polychromasia Hypochromasia Anisocytosis Microcytosis INR (Anticoag Therapy) APTT Patient Temperature ABG pH ABG pH (Temp Correct) ABG pCO2 ABG pCO2 (Temp Corrct ABG pO2 ABG pO2 (Temp Correct ABG HCO3 ABG O2 Saturation ABG Base Excess Respiration Rate O2 Delivery Device Ventilator Type Vent Mode FiO2 Inspiratory Time PEEP Pressure Support Pressure Control EPAP IPAP BiPAP Sodium Potassium Chloride Carbon Dioxide Anion Gap BUN Creatinine Est GFR ( Amer) Est GFR (Non-Af Amer) BUN/Creatinine Ratio Glucose POC Glucose (mg/dL) 99 Lactic Acid Calcium Total Bilirubin AST ALT Alkaline Phosphatase Troponin I C-Reactive Protein B-Natriuretic Peptide Total Protein Albumin Globulin Albumin/Globulin Ratio Urine Color Yellow Urine Appearance Turbid Urine pH 5.0 Ur Specific Carey 1.019 Urine Protein 2+(100 mg/dl) A Urine Ketones Trace A Urine Blood 1+ A Urine Nitrate Negative Urine Bilirubin Negative Urine Urobilinogen Negative Ur Leukocyte Esterase 2+ A Urine WBC (Auto) 3+(>20/hpf) A Urine RBC (Auto) 3+(>10/hpf) A Urine Bacteria Absent Urine Glucose Negative Blood Type A Positive Antibody Screen Negative Crossmatch See Detail 09/22/18 09/22/18 09/22/18 21:03 21:03 21:03 WBC 21.5 H RBC 2.77 L Hgb 6.8 L Hct 23 L MCV 84 MCH 25 L MCHC 30 L RDW 30 H Plt Count 438 MPV 6.8 L Neut % (Auto) Not Reportable Lymph % (Auto) Not Reportable Josephine % (Auto) Not Reportable Eos % (Auto) Not Reportable Baso % (Auto) Not Reportable Absolute Neuts (auto) 17.7 H Absolute Lymphs (auto) 1.9 Absolute Monos (auto) 1.8 H Absolute Eos (auto) 0.0 Absolute Basos (auto) 0.1 Absolute Nucleated RBC Not Reportable Immature Gran % 4.0 Neutrophils % 75.0 Band Neutrophils % 4.0 Lymphocytes % 14.0 Monocytes % 6.0 Basophils % 1.0 Nucleated RBC % Not Reportable Abs Neuts (Manual) 17.0 H Abs Lymphs (Manual) 3.0 Abs Monocytes (Manual) 1.3 H Abs Basophils (Manual) 0.2 Nucleated RBCs/100 WBC 2.0 H Normal RBC Morphology Not Reportable Polychromasia 1+ Hypochromasia 1+ Anisocytosis 2+ Microcytosis 1+ INR (Anticoag Therapy) 1.40 H APTT 32.9 Patient Temperature ABG pH ABG pH (Temp Correct) ABG pCO2 ABG pCO2 (Temp Corrct ABG pO2 ABG pO2 (Temp Correct ABG HCO3 ABG O2 Saturation ABG Base Excess Respiration Rate O2 Delivery Device Ventilator Type Vent Mode FiO2 Inspiratory Time PEEP Pressure Support Pressure Control EPAP IPAP BiPAP Sodium 143 Potassium 5.9 H Chloride 120 H Carbon Dioxide 9 L* Anion Gap 14 H BUN 137 H Creatinine 3.73 H Est GFR ( Amer) 14.2 Est GFR (Non-Af Amer) 11.7 BUN/Creatinine Ratio 36.7 H Glucose 48 L* POC Glucose (mg/dL) Lactic Acid Calcium 7.8 L Total Bilirubin 3.80 H AST 62 H ALT 45 Alkaline Phosphatase 758 H Troponin I 0.04 H* C-Reactive Protein 74.57 H B-Natriuretic Peptide Total Protein 5.0 L Albumin 2.2 L Globulin 2.8 Albumin/Globulin Ratio 0.8 L Urine Color Urine Appearance Urine pH Ur Specific Carey Urine Protein Urine Ketones Urine Blood Urine Nitrate Urine Bilirubin Urine Urobilinogen Ur Leukocyte Esterase Urine WBC (Auto) Urine RBC (Auto) Urine Bacteria Urine Glucose Blood Type Antibody Screen Crossmatch 09/22/18 09/22/18 09/22/18 21:03 21:03 22:30 WBC RBC Hgb Hct MCV MCH MCHC RDW Plt Count MPV Neut % (Auto) Lymph % (Auto) Josephine % (Auto) Eos % (Auto) Baso % (Auto) Absolute Neuts (auto) Absolute Lymphs (auto) Absolute Monos (auto) Absolute Eos (auto) Absolute Basos (auto) Absolute Nucleated RBC Immature Gran % Neutrophils % Band Neutrophils % Lymphocytes % Monocytes % Basophils % Nucleated RBC % Abs Neuts (Manual) Abs Lymphs (Manual) Abs Monocytes (Manual) Abs Basophils (Manual) Nucleated RBCs/100 WBC Normal RBC Morphology Polychromasia Hypochromasia Anisocytosis Microcytosis INR (Anticoag Therapy) APTT Patient Temperature Not Reportable ABG pH 7.18 L* ABG pH (Temp Correct) Not Reportable ABG pCO2 < 20 L ABG pCO2 (Temp Corrct Not Reportable ABG pO2 77 L ABG pO2 (Temp Correct Not Reportable ABG HCO3 9.4 L* ABG O2 Saturation 97.9 ABG Base Excess -19.8 L Respiration Rate Not Reportable O2 Delivery Device oxymask Ventilator Type Not Reportable Vent Mode Not Reportable FiO2 Not Reportable Inspiratory Time Not Reportable PEEP Not Reportable Pressure Support Not Reportable Pressure Control Not Reportable EPAP Not Reportable IPAP Not Reportable BiPAP Not Reportable Sodium Potassium Chloride Carbon Dioxide Anion Gap BUN Creatinine Est GFR ( Amer) Est GFR (Non-Af Amer) BUN/Creatinine Ratio Glucose POC Glucose (mg/dL) Lactic Acid 5.5 H* Calcium Total Bilirubin AST ALT Alkaline Phosphatase Troponin I C-Reactive Protein B-Natriuretic Peptide 454 H Total Protein Albumin Globulin Albumin/Globulin Ratio Urine Color Urine Appearance Urine pH Ur Specific Carey Urine Protein Urine Ketones Urine Blood Urine Nitrate Urine Bilirubin Urine Urobilinogen Ur Leukocyte Esterase Urine WBC (Auto) Urine RBC (Auto) Urine Bacteria Urine Glucose Blood Type Antibody Screen Crossmatch 09/22/18 09/22/18 09/23/18 22:54 22:56 01:04 WBC RBC Hgb Hct MCV MCH MCHC RDW Plt Count MPV Neut % (Auto) Lymph % (Auto) Josephine % (Auto) Eos % (Auto) Baso % (Auto) Absolute Neuts (auto) Absolute Lymphs (auto) Absolute Monos (auto) Absolute Eos (auto) Absolute Basos (auto) Absolute Nucleated RBC Immature Gran % Neutrophils % Band Neutrophils % Lymphocytes % Monocytes % Basophils % Nucleated RBC % Abs Neuts (Manual) Abs Lymphs (Manual) Abs Monocytes (Manual) Abs Basophils (Manual) Nucleated RBCs/100 WBC Normal RBC Morphology Polychromasia Hypochromasia Anisocytosis Microcytosis INR (Anticoag Therapy) APTT Patient Temperature ABG pH ABG pH (Temp Correct) ABG pCO2 ABG pCO2 (Temp Corrct ABG pO2 ABG pO2 (Temp Correct ABG HCO3 ABG O2 Saturation ABG Base Excess Respiration Rate O2 Delivery Device Ventilator Type Vent Mode FiO2 Inspiratory Time PEEP Pressure Support Pressure Control EPAP IPAP BiPAP Sodium Potassium Chloride Carbon Dioxide Anion Gap BUN Creatinine Est GFR ( Amer) Est GFR (Non-Af Amer) BUN/Creatinine Ratio Glucose POC Glucose (mg/dL) 291 H 109 H 60 L Lactic Acid Calcium Total Bilirubin AST ALT Alkaline Phosphatase Troponin I C-Reactive Protein B-Natriuretic Peptide Total Protein Albumin Globulin Albumin/Globulin Ratio Urine Color Urine Appearance Urine pH Ur Specific Carey Urine Protein Urine Ketones Urine Blood Urine Nitrate Urine Bilirubin Urine Urobilinogen Ur Leukocyte Esterase Urine WBC (Auto) Urine RBC (Auto) Urine Bacteria Urine Glucose Blood Type Antibody Screen Crossmatch 09/23/18 09/23/18 09/23/18 01:53 01:57 01:57 WBC RBC Hgb Hct MCV MCH MCHC RDW Plt Count MPV Neut % (Auto) Lymph % (Auto) Josephine % (Auto) Eos % (Auto) Baso % (Auto) Absolute Neuts (auto) Absolute Lymphs (auto) Absolute Monos (auto) Absolute Eos (auto) Absolute Basos (auto) Absolute Nucleated RBC Immature Gran % Neutrophils % Band Neutrophils % Lymphocytes % Monocytes % Basophils % Nucleated RBC % Abs Neuts (Manual) Abs Lymphs (Manual) Abs Monocytes (Manual) Abs Basophils (Manual) Nucleated RBCs/100 WBC Normal RBC Morphology Polychromasia Hypochromasia Anisocytosis Microcytosis INR (Anticoag Therapy) APTT Patient Temperature ABG pH ABG pH (Temp Correct) ABG pCO2 ABG pCO2 (Temp Corrct ABG pO2 ABG pO2 (Temp Correct ABG HCO3 ABG O2 Saturation ABG Base Excess Respiration Rate O2 Delivery Device Ventilator Type Vent Mode FiO2 Inspiratory Time PEEP Pressure Support Pressure Control EPAP IPAP BiPAP Sodium 143 Potassium TNP Chloride 122 H Carbon Dioxide < 7 L* Anion Gap Not Reportable BUN 127 H Creatinine 3.57 H Est GFR ( Amer) 14.9 Est GFR (Non-Af Amer) 12.3 BUN/Creatinine Ratio 35.6 H Glucose 88 POC Glucose (mg/dL) 97 Lactic Acid 6.4 H* Calcium 7.5 L Total Bilirubin AST ALT Alkaline Phosphatase Troponin I 0.03 C-Reactive Protein B-Natriuretic Peptide Total Protein Albumin Globulin Albumin/Globulin Ratio Urine Color Urine Appearance Urine pH Ur Specific Carey Urine Protein Urine Ketones Urine Blood Urine Nitrate Urine Bilirubin Urine Urobilinogen Ur Leukocyte Esterase Urine WBC (Auto) Urine RBC (Auto) Urine Bacteria Urine Glucose Blood Type Antibody Screen Crossmatch 09/23/18 09/23/18 09/23/18 03:02 04:06 05:06 WBC RBC Hgb Hct MCV MCH MCHC RDW Plt Count MPV Neut % (Auto) Lymph % (Auto) Josephine % (Auto) Eos % (Auto) Baso % (Auto) Absolute Neuts (auto) Absolute Lymphs (auto) Absolute Monos (auto) Absolute Eos (auto) Absolute Basos (auto) Absolute Nucleated RBC Immature Gran % Neutrophils % Band Neutrophils % Lymphocytes % Monocytes % Basophils % Nucleated RBC % Abs Neuts (Manual) Abs Lymphs (Manual) Abs Monocytes (Manual) Abs Basophils (Manual) Nucleated RBCs/100 WBC Normal RBC Morphology Polychromasia Hypochromasia Anisocytosis Microcytosis INR (Anticoag Therapy) APTT Patient Temperature ABG pH ABG pH (Temp Correct) ABG pCO2 ABG pCO2 (Temp Corrct ABG pO2 ABG pO2 (Temp Correct ABG HCO3 ABG O2 Saturation ABG Base Excess Respiration Rate O2 Delivery Device Ventilator Type Vent Mode FiO2 Inspiratory Time PEEP Pressure Support Pressure Control EPAP IPAP BiPAP Sodium Potassium Chloride Carbon Dioxide Anion Gap BUN Creatinine Est GFR ( Amer) Est GFR (Non-Af Amer) BUN/Creatinine Ratio Glucose POC Glucose (mg/dL) 80 61 L 101 H Lactic Acid Calcium Total Bilirubin AST ALT Alkaline Phosphatase Troponin I C-Reactive Protein B-Natriuretic Peptide Total Protein Albumin Globulin Albumin/Globulin Ratio Urine Color Urine Appearance Urine pH Ur Specific Carey Urine Protein Urine Ketones Urine Blood Urine Nitrate Urine Bilirubin Urine Urobilinogen Ur Leukocyte Esterase Urine WBC (Auto) Urine RBC (Auto) Urine Bacteria Urine Glucose Blood Type Antibody Screen Crossmatch 09/23/18 09/23/18 09/23/18 06:01 06:58 07:24 WBC RBC Hgb Hct MCV MCH MCHC RDW Plt Count MPV Neut % (Auto) Lymph % (Auto) Josephine % (Auto) Eos % (Auto) Baso % (Auto) Absolute Neuts (auto) Absolute Lymphs (auto) Absolute Monos (auto) Absolute Eos (auto) Absolute Basos (auto) Absolute Nucleated RBC Immature Gran % Neutrophils % Band Neutrophils % Lymphocytes % Monocytes % Basophils % Nucleated RBC % Abs Neuts (Manual) Abs Lymphs (Manual) Abs Monocytes (Manual) Abs Basophils (Manual) Nucleated RBCs/100 WBC Normal RBC Morphology Polychromasia Hypochromasia Anisocytosis Microcytosis INR (Anticoag Therapy) APTT Patient Temperature ABG pH ABG pH (Temp Correct) ABG pCO2 ABG pCO2 (Temp Corrct ABG pO2 ABG pO2 (Temp Correct ABG HCO3 ABG O2 Saturation ABG Base Excess Respiration Rate O2 Delivery Device Ventilator Type Vent Mode FiO2 Inspiratory Time PEEP Pressure Support Pressure Control EPAP IPAP BiPAP Sodium Potassium Chloride Carbon Dioxide Anion Gap BUN Creatinine Est GFR ( Amer) Est GFR (Non-Af Amer) BUN/Creatinine Ratio Glucose POC Glucose (mg/dL) 100 107 H Lactic Acid 7.7 H* Calcium Total Bilirubin AST ALT Alkaline Phosphatase Troponin I C-Reactive Protein B-Natriuretic Peptide Total Protein Albumin Globulin Albumin/Globulin Ratio Urine Color Urine Appearance Urine pH Ur Specific Carey Urine Protein Urine Ketones Urine Blood Urine Nitrate Urine Bilirubin Urine Urobilinogen Ur Leukocyte Esterase Urine WBC (Auto) Urine RBC (Auto) Urine Bacteria Urine Glucose Blood Type Antibody Screen Crossmatch 09/23/18 09/23/18 09/23/18 08:13 09:01 10:56 WBC RBC Hgb Hct MCV MCH MCHC RDW Plt Count MPV Neut % (Auto) Lymph % (Auto) Josephine % (Auto) Eos % (Auto) Baso % (Auto) Absolute Neuts (auto) Absolute Lymphs (auto) Absolute Monos (auto) Absolute Eos (auto) Absolute Basos (auto) Absolute Nucleated RBC Immature Gran % Neutrophils % Band Neutrophils % Lymphocytes % Monocytes % Basophils % Nucleated RBC % Abs Neuts (Manual) Abs Lymphs (Manual) Abs Monocytes (Manual) Abs Basophils (Manual) Nucleated RBCs/100 WBC Normal RBC Morphology Polychromasia Hypochromasia Anisocytosis Microcytosis INR (Anticoag Therapy) APTT Patient Temperature ABG pH ABG pH (Temp Correct) ABG pCO2 ABG pCO2 (Temp Corrct ABG pO2 ABG pO2 (Temp Correct ABG HCO3 ABG O2 Saturation ABG Base Excess Respiration Rate O2 Delivery Device Ventilator Type Vent Mode FiO2 Inspiratory Time PEEP Pressure Support Pressure Control EPAP IPAP BiPAP Sodium Potassium Chloride Carbon Dioxide Anion Gap BUN Creatinine Est GFR ( Amer) Est GFR (Non-Af Amer) BUN/Creatinine Ratio Glucose POC Glucose (mg/dL) 109 H 109 H 97 Lactic Acid Calcium Total Bilirubin AST ALT Alkaline Phosphatase Troponin I C-Reactive Protein B-Natriuretic Peptide Total Protein Albumin Globulin Albumin/Globulin Ratio Urine Color Urine Appearance Urine pH Ur Specific Carey Urine Protein Urine Ketones Urine Blood Urine Nitrate Urine Bilirubin Urine Urobilinogen Ur Leukocyte Esterase Urine WBC (Auto) Urine RBC (Auto) Urine Bacteria Urine Glucose Blood Type Antibody Screen Crossmatch 09/23/18 09/23/18 09/23/18 13:28 13:32 13:35 WBC RBC Hgb Hct MCV MCH MCHC RDW Plt Count MPV Neut % (Auto) Lymph % (Auto) Josephine % (Auto) Eos % (Auto) Baso % (Auto) Absolute Neuts (auto) Absolute Lymphs (auto) Absolute Monos (auto) Absolute Eos (auto) Absolute Basos (auto) Absolute Nucleated RBC Immature Gran % Neutrophils % Band Neutrophils % Lymphocytes % Monocytes % Basophils % Nucleated RBC % Abs Neuts (Manual) Abs Lymphs (Manual) Abs Monocytes (Manual) Abs Basophils (Manual) Nucleated RBCs/100 WBC Normal RBC Morphology Polychromasia Hypochromasia Anisocytosis Microcytosis INR (Anticoag Therapy) APTT Patient Temperature Not Reportable ABG pH 7.06 L* ABG pH (Temp Correct) Not Reportable ABG pCO2 < 20 L ABG pCO2 (Temp Corrct Not Reportable ABG pO2 78 L ABG pO2 (Temp Correct Not Reportable ABG HCO3 6.0 L* ABG O2 Saturation 97.6 ABG Base Excess -24.2 L Respiration Rate Not Reportable O2 Delivery Device Nc Ventilator Type Not Reportable Vent Mode Not Reportable FiO2 50 Inspiratory Time Not Reportable PEEP Not Reportable Pressure Support Not Reportable Pressure Control Not Reportable EPAP Not Reportable IPAP Not Reportable BiPAP Not Reportable Sodium 137 Potassium TNP Chloride 117 H Carbon Dioxide < 7 L* Anion Gap Not Reportable BUN 124 H Creatinine 3.62 H Est GFR ( Amer) 14.7 Est GFR (Non-Af Amer) 12.2 BUN/Creatinine Ratio 34.3 H Glucose 96 POC Glucose (mg/dL) Lactic Acid 8.8 H* Calcium 6.8 L Total Bilirubin 3.40 H AST TNP ALT 44 Alkaline Phosphatase 619 H Troponin I C-Reactive Protein B-Natriuretic Peptide Total Protein 5.3 L Albumin 2.5 L Globulin 2.8 Albumin/Globulin Ratio 0.9 L Urine Color Urine Appearance Urine pH Ur Specific Carey Urine Protein Urine Ketones Urine Blood Urine Nitrate Urine Bilirubin Urine Urobilinogen Ur Leukocyte Esterase Urine WBC (Auto) Urine RBC (Auto) Urine Bacteria Urine Glucose Blood Type Antibody Screen Crossmatch Studies: US abdomen- pending Nutrition: NPO Impression: 77 y o f with h/o HTN, dysludemia, DM, depression, generalized deconditioning, currently residing in [place], Pt was brought in for evaluation of hypoglycemia and AMS. Pt was found to be having resp distress for few days prior to admission. She was with poor oral intake, received 7 units of Insulin and later was noted to be acting not herseld. She was noted to be hypoglycemiac. She was givne D50 and glucagon and was brought to D> She was recently d/crista to [place] after being treated for cellulitis of LE. She has chronic sacral decub. She has received fluid resuscitation in ED, was admitted to ICU Sepsis sec to UTI, unclear if there is any abd source Septic shock Elevated lactate H/o MRSA cellulitis and decub Hypoxic resp failure sec to severe sepsis Severe metabolic acidosis ARF Hyperkalemia Bradycardia Elevated troponin AMS sec to septic/m,etabolic encephalopathy UTI Hypoglycemia Anemia with no acute bleed Plan: 1. Neuro: AMS sec to metabolic encephalopathy. Able to protect airway. Aspiration precautions. 2. CVS: Hypotension sec to septic shock, UTI likely source. Pt also bradycardic sec to possible hyperkalemia. Pt currently receiving fluid resuscitation. Will start Levophed if remains hypotensive. Family to hold off on invasive measures/ Central line. 3. Resp: Hypoxic resp failure, stable on high flow. Pt with mild interstial congestion and small effusions. Pt with resp alkalosis sec to severe acidosis. Family didnot want BiPAP. 4. ID: Severe sepsis/septic shock sec to UTI. ? Abd source- Pyelo or cholecystitis. Abd U/S pending. pt not stable to be transported to CT facility for abd CT. Pt on Aztreonam, Vancomycin as per levels. Pt received Levaquin in ED. Will add Flagyl for anaerobic coverage, no evidence for c.diff eventhough pt had been in hosp recently and also been on abx . Lactate trending up. Pt with U/S of abdomen 2 weeks ago that showed gall bladder sludge. Pt also with cellulitis and sacral decub- multiple sources of sepsis. Pt receiving fluid resuscitation. She is receiving albumin and hydrocortisone. Levophed ordered. F/u septic w/u 5. GI: Abd U/S to be followed. GI ppx. NPO for now. Significantly elevated LFTs , also seen on recent admission. Pt with evidence of icterus. Surgery consulted. No evidence of acute abdomen. Might need ERCP if abd U/S is suggestive of CBD dilation. 6. Haem: Leucocytosis. Anemia -acute on chronic. No acute bleeding or evidence of recent GI bleed. Will monitor H&H 7. Renal: ARF sec to sepsis. Lactic acidosis worsening inspite of abx and fluids. Hyperkalemia on admission, unable to get f/u potassium levels. Ordered calcium gluconate prophylactically. Pt with low bl sugars, will avoid insulin. Pt on bicarb drip. Oliguria sec to severe hypotension, suspect prerenal and renal causes. Has received fluid resuscitation appropriately. c/w bicarb drip, albumin, IV hydration. Will monitor electrolytes closely 8. Endo: Severe hypoglycemia on admission. Pt on D5NS, bl sugars stable now, will monitor q 4 hrs. On stress dose steroids. 9.Musculoskeletal: Pt with sacral decub, skin break down and cellulitis of LE. Frequent turning and positioning. 10. Psychosocial: Pt`s family members updated multiple times through out the day at bedside. Pt`s condition continues to deteriorate inspite of full supportive care. Pts daughter Rosario Hermosillo who is HCP decided on comfort care after consulting other family members. She also is inclined towards comfort care however is waiting for other daughter to arrive. DVT px: SCDs ordered given anemia and concern with recent drop. GI px Critical Care Time: 35 min
[2018-09-23] MEDS ORDERED: Hydrocortisone INJ* 100 MG VIAL IM SCH (15:00)
[2018-09-23] MEDS ORDERED: Hydrocortisone INJ* 100 MG VIAL IV SCH (15:00)
[2018-09-23] MEDS ORDERED: Aztreonam (*) 1 GM in NS 0.9% 50 ML* 50 ML IVPB SCH (15:00)
[2018-09-23] MEDS ORDERED: Calcium Gluconate INJ* 2 GM in NS 0.9% 100 ML* 100 ML IVPB ONE (15:41)
[2018-09-23] MEDS ORDERED: Norepinephrine 16MCG/ML IVPRE* 4,000 MCG/250 ML BAG IV SCH (16:00)
[2018-09-23] MEDS ORDERED: metroNIDAZOLE IV 500 MG/100ML* 500 MG/100 ML BAG IVPB SCH (16:00)
[2018-09-23] MEDS ORDERED: Morphine PCA ADULT* 5 MG/ML 30 ML PCA SCH (17:00)
[2018-09-23] MEDS ORDERED: Atorvastatin* 10 MG TAB PO SCH (18:00)
[2018-09-23 19:27] VITALS: BP 83/35
[2018-09-23] MEDS ORDERED: LORazepam INJ* 2 MG/ML 1 ML VIAL IV PUSH PRN (19:52)
[2018-09-23] MEDS ORDERED: Lorazepam PYXIS KEY PRN (19:55)
[2018-09-23] MEDS ORDERED: Mirtazapine TAB* 15 MG PO SCH (21:00)
[2018-09-23] MEDS ORDERED: Sertraline* 25 MG TAB PO SCH (21:00)
[2018-09-24] MEDS ORDERED: Vancomycin Random Level* NOTE FOLLOW UP PRN (06:00)
--- NOTE | 2018-09-24 15:40 | DS ---
Discharge Summary Patient Name: Elina Cho Date of Admission: 09/22/2018 Date of Discharge: 09/24/2018 Attending: Dr Sabina Madrid Consultants: - Admitting/Discharge Diagnoses: 1) Septic shock 2) Sacral Decubitus ulcers 3) Acute Kidney Injury 4) Hyperkalemia 5) Acute hypoxic Respiratory Failure 6) Hypoglycemia 7) Delirium HPI/Hospital Course: 77y F with pmhx of HTN, HLD, DM, previous admissions for cellulitus; brought in from [place] for evaluation of hypoglycemia and change in mental status on 09/22. Found to be dehydrated, hypotensive, with acute kidney injury and in septic shock from multiple potential sources included Urinary, Deep Sacral pressure ulcers or pneumonia. She was started on sepsis pathway, given IVF, IV abx. She remained with severe metabolic acidosis with lactic acidosis. Vp Strategic Planning Dr Madrid discussed with family and Goals of care were reached by them given her long course in the past and quality of life. She was a DNR/DNI. Decision for initiation of comfort care and stopping of medications and aggressive support was done on 09/22 evening. Patient was placed on a morphine infusion for control of respiratory distress since she was taken off respiratory support devices. Patient on 09/24 at 0647am in the Medical ICU, family aware. Procedures/Imaging: see chart Laboratory/Data: see chart Discharge Medications: none Condition upon discharge: 09/24/2018 at 0647 Code Status: DNR/DNI/Comfort care prior to Expiration Total Discharge time 25 minutes. I am covering for Dr Madrid and have performed discharge summary for her. Romain Velasco MD Vp Strategic Planning (Electronically Signed)
== END 2018-09-24 06:47 | disposition expired | DRG 871 ==
LOC: ED 20:01 → ICU 23:34
PROVIDERS: ADMIT Internal Medicine; ATTEND Internal Medicine Critical Care Medicine
PROC: 5A09357 Assistance with Respiratory Ventilation, Less than 24 Consecutive Hours, Continuous Positive Airway Pressure (ICD-10-PCS; principal; 2018-09-23)
PROC: 30233N1 Transfusion of Nonautologous Red Blood Cells into Peripheral Vein, Percutaneous Approach (ICD-10-PCS; 2018-09-23)
DX: A41.9 Sepsis, unspecified organism (principal); R65.21 Severe sepsis with septic shock; G93.41 Metabolic encephalopathy; J96.01 Acute respiratory failure with hypoxia; J18.9 Pneumonia, unspecified organism; I69.354 Hemiplegia and hemiparesis following cerebral infarction affecting left non-dominant side; N17.9 Acute kidney failure, unspecified; K80.00 Calculus of gallbladder with acute cholecystitis without obstruction; N39.0 Urinary tract infection, site not specified; E11.9 Type 2 diabetes mellitus without complications; R00.1 Bradycardia, unspecified; E78.00 Pure hypercholesterolemia, unspecified; I10 Essential (primary) hypertension; E78.5 Hyperlipidemia, unspecified; E11.649 Type 2 diabetes mellitus with hypoglycemia without coma; E66.9 Obesity, unspecified; R68.0 Hypothermia, not associated with low environmental temperature; Z66 Do not resuscitate; R74.8 Abnormal levels of other serum enzymes; E86.0 Dehydration; E87.5 Hyperkalemia; D64.9 Anemia, unspecified; F32.9 Major depressive disorder, single episode, unspecified; Z98.42 Cataract extraction status, left eye; Z98.41 Cataract extraction status, right eye; Z87.891 Personal history of nicotine dependence; Z86.14 Personal history of Methicillin resistant Staphylococcus aureus infection; Z88.0 Allergy status to penicillin; Z88.2 Allergy status to sulfonamides; Z80.1 Family history of malignant neoplasm of trachea, bronchus and lung; Z68.28 Body mass index [BMI] 28.0-28.9, adult
CPT/HCPCS: 36415; 71045; 76700; 80048; 80053; 81003; 81015; 82803; 83605; 83880; 84484; 85025; 85610; 85730; 86140; 86850; 86900; 86901; 86922; 87040; 87086; 87186; 87641; 93005; 99285; A9270-GY; J0610; J1720; J1956; J2060; J2270; J3370; J3490; P9040; P9045